=== PATIENT | female | born 1935 | race Caucasian/White ===

== ENCOUNTER 2021-04-14 10:13 | Emergency (ER) | payer MEDICARE ==
[~2021-04-14] VITALS: Ht 149 cm; Wt 65.0 kg
--- OUTSIDE RECORDS SUMMARY | 2021-04-14 10:19 | XMS REPORT | Clinical Summary ---
Author Author [facility] Address Unknown Phone Unavailable Care Team Providers Care Social Media Campaign Manager Name Role Phone Dorie Campos Erick DO PCP Frederick Bonner MD Unavailable Martina Szymanski MD Unavailable Shimon Paula MD Unavailable Allergies Comments Active Allergy Reactions Severity Noted Date Causes weepy skin Bacitracin Other (See 01/13/2018 Comments) States prob a rash Clindamycin Other (See 01/13/2018 Comments) Rash Doxycycline Rash Low 08/19/2016 GI distress Erythromycin Base Nausea Only Low 08/19/2016 Etodolac Diarrhea High 01/13/2018 Makes her agitated. Gabapentin Other (See 04/01/2019 Comments) Happened with CT dye-does not remember what happened. States betadine topical is ok with no reaction Iodine Other (See 01/13/2018 Comments) Patient reports skin reaction to the adhesive on the bandaids Latex Other (See 07/23/2016 Comments) cuased her fingernails to flake off Levofloxacin In D5w Other (See Comments) Unknown reaction Pregabalin Other (See 10/03/2020 Comments) "makes me crazy" Morphine Other (See 08/27/2016 Comments) Causes weepy skin Neomycin Other (See 01/13/2018 Comments) Nystatin Rash High 08/19/2016 Causes weepy skin Polymyxin B Other (See 01/13/2018 Comments) Sulfamethoxazole Rash Low 08/19/2016 Bextra Valdecoxib Rash High 04/17/2017 Medications End Date Status Medication Sig Dispensed Refills Start Date Active Alum Hydroxide-Mag Take 3 0 Trisilicate (GAVISCON) tablets by 80-14.2 MG CHEW mouth as needed. Active ibuprofen (ADVIL,MOTRIN) Take 200-400 0 200 MG tablet mg by mouth as needed. Active Calcium-Vitamin D-Vitamin Chew 1 tablet 0 K 650-12.5-40 MG-MCG-MCG every other CHEW day. Active acetaminophen (TYLENOL) Take 500 mg 0 500 MG tablet by mouth every 6 (six) hours as needed for Mild Pain. Active chlorhexidine (PERIDEX) Twice a Day 120 mL 1 0.12 % 1 solutionIndications: Mouth sores Active pantoprazole (PROTONIX) TAKE 1 TABLET 180 tablet 3 40 MG tabletIndications: TWICE A DAY 1 Gastroesophageal reflux disease without esophagitis Active atorvastatin (LIPITOR) 40 TAKE 1 TABLET 90 tablet 3 MG tablet DAILY 1 Active clopidogrel (PLAVIX) 75 TAKE 1 TABLET 90 tablet 3 MG tablet DAILY 1 Active diclofenac (VOLTAREN) 1 % APPLY 2-4 100 g 11 gelIndications: Primary GRAMS 1 osteoarthritis of left TOPICALLY TO shoulder, Neck pain, AFFECTED AREA chronic FOUR TIMES DAILY Active clobetasol (TEMOVATE) Apply 0 0.05 % cream topically 2 (two) times daily as needed. Active Trolamine Salicylate Apply 0 (ASPERCREME EX) topically. Active carvedilol (COREG) 3.125 Take 1 tablet 180 tablet 3 MG tabletIndications: (3.125 mg 1 Essential hypertension total) by mouth 2 (two) times daily with meals. Active fenofibrate (TRIGLIDE) Take 1 tablet 90 tablet 3 1 160 MG tabletIndications: (160 mg 1 Mixed hyperlipidemia total) by mouth daily. Active hydroCHLOROthiazide Take 1 tablet 90 tablet 3 (HYDRODIURIL) 25 MG (25 mg total) 1 tabletIndications: by mouth Essential hypertension daily. Active lisinopril Take 1 tablet 90 tablet 3 (PRINIVIL,ZESTRIL) 2.5 MG (2.5 mg 1 tabletIndications: total) by Essential hypertension mouth daily. Active traMADol (ULTRAM) 50 MG TAKE 1 TABLET 120 tablet 2 tabletIndications: BY MOUTH 4 1 Primary osteoarthritis TIMES DAILY involving multiple joints NEEDED Active acetaminophen-codeine Take 1 tablet 90 tablet 3 (TYLENOL #3) 300-30 MG by mouth 1 per tabletIndications: every 6 (six) DDD (degenerative disc hours as disease), lumbar needed for Moderate Pain. Active multivitamin w/minerals Take 1 tablet 0 (CENTRUM) TABS by mouth daily. Active vitamin C (ASCORBIC ACID) Take 500 mg 0 500 MG tablet by mouth daily. Active B Complex Vitamins Take by 0 (VITAMIN B COMPLEX PO) mouth. Status Hospital, Clinic, or Ordered Dose Route Frequency Start End Date Other Facility Date Administered Medication Active cyanocobalamin (VITAMIN 1000 mcg IM EVERY 30 DAYS B-12) injection 1,000 21 2 mcgIndications: Vitamin B12 deficiency Active Problems Problem Noted Date Syncope 02/20/2021 Last Assessment & Plan: Formatting of this note might be differ ent from the original. - has appt with Dr Bennett next week to follow-up - still doesn't quite feel right - MRI was normal - rhythm was normal on telemetry during hospital stay - referral to neurology (seizure vs sy ncope) Traumatic ecchymosis of abdominal wall, initial encou nter 02/20/2021 Last Assessment & Plan: Formatting of this note might be differ ent from the original. - discussed will see if this is getting worse will order CT abdomen - will check CBC in office today Hypokalemia 02/20/2021 Last Assessment & Plan: Formatting of this note might be differ ent from the original. BMP today We will call with results and further i nstructions as needed Mixed hyperlipidemia 01/24/2021 Last Assessment & Plan: Formatting of this note is different fr om the original. Lab Results Component Value Date CHOL 136 01/13/2020 HDL 46 01/13/2020 LDL 69 01/13/2020 TRIG 104 01/13/2020 Will repeat labs today Vitamin B12 deficiency 01/24/2021 Last Assessment & Plan: Formatting of this note might be differ ent from the original. Patient has been taking b12 daily Will continue b12 Will check level Was going to do injections in the past - but stopped due to COVID pandemic and didn't ever do injections Hospital discharge follow-up 12/21/2020 Last Assessment & Plan: Formatting of this note might be differ ent from the original. Fu after recent hospitalization Will do labs today Wart on thumb 10/03/2020 Last Assessment & Plan: Formatting of this note might be differ ent from the original. Right thumb affected and treated. Cryotherapy: Keep the area dry and cove red for 24-48 hours and clean thereafter. Watch for signs of infection (redness, pain, drainage, warmth, swelling). Take Tylenol (acetaminophen) as needed for pain. Blister formation, some redness and tenderness is normal. Additional written information provided . Follow up as needed for any change or c oncern. Neck pain, chronic 09/27/2020 Last Assessment & Plan: Formatting of this note might be differ ent from the original. Try acetaminophen (Tylenol) for neck /h eadache pain - no more than 1000 mg 3 x day. Check cervical spine films. Consider physical therapy - depending x ray results. Neck exercises as directed - DO NOT PER FORM IF CAUSES PAIN. Follow-up for persistent or worsening s ymptoms. DDD (degenerative disc disease), cervical 09/27/2020 Last Assessment & Plan: Formatting of this note might be differ ent from the original. Chronic This continues to bother her and affect her ADL's She will continue with tramadol and dic lofenac gel (topical) If not improved, discussed fentanyl pat ch She will hold off at this time but may consider low dose fentanyl patch in future Will order MRI Referral to neurosurgery - patient has severe DDD- cervical spin e. She has worsening radiculopathy symptoms Has seen pain management and had inject ions in the past Olecranon bursitis of right elbow 02/02/2020 Overview: Formatting of this note might be differ ent from the original. Added automatically from request for estrella prince [id number] Sacroiliac joint dysfunction 12/14/2019 DDD (degenerative disc disease), lumbar 09/30/2019 Last Assessment & Plan: Formatting of this note might be differ ent from the original. Chronic Will order MRI Patient will need referral to neurosurg justa for evaluation Will order MRI to do prior to her appt - has had worsening neuropathy (feet go ing numb) Has seen pain management in the past - will order MRI Left hip pain 01/11/2019 Last Assessment & Plan: Formatting of this note might be differ ent from the original. Will check radiographic films. Will send referral for physical therapy . If there is no improvement, will refer for possible hip injection, furth er evaluation. Arthropathy of left shoulder 12/14/2018 Overview: Formatting of this note might be differ ent from the original. Added automatically from request for estrella prince [id number] L ast Assessment & Plan: Formatting of this note might be differ ent from the original. Continue therapies. Left thyroid nodule 01/22/2018 Last Assessment & Plan: Formatting of this note might be differ ent from the original. She had a low attenuation focus in the left thyroid lobe. Will order U/S. Pulmonary nodule 01/22/2018 Overview: Formatting of this note might be differ ent from the original. CT chest 01/2021: IMPRESSION: 1. There are multiple pulmonary nodule seen within the lungs bilaterally. Majority of these do appear to have bee n present in 2019. However, a few may be slightly better visualized or co uld be minimally larger than on the prior of 2019. Some are not as well seen on the CT a chest exam due to some motion artifact. No definite ne w nodules are seen since 2019. Given this, and the fact that none of t hese nodules are greater than 6 mm and according to the Fleischner society guidelines no specific follow-up is recommended. However, short-term fol low-up in 6 months to 1 year should be considered. 2. No new adenopathy or other mass. The re remains some large calcified lymph nodes within the hilar region on the left. Nonenlarged lymph nodes within the mediastinum are stable. No n ew axillary adenopathy or mass. 3. No other significant acute process w ithin the chest. There are areas of atelectatic change and/or scar seen. 4. Common bile duct region does appear prominent as seen. This is similar to 2019. No focal abnormal finding is s een. This measures up to 2.7 cm as seen. Please correlate clinically. Gall bladder is surgically absent. 5. Details and other findings as above. L ast Assessment & Plan: Formatting of this note might be differ ent from the original. Chronic Reviewed CT chest 01/2021 [address] to repeat CT chest 01/2022 Annual physical exam 12/08/2017 Last Assessment & Plan: Formatting of this note is different fr om the original. Will do labs today Pap: HYST (not due) Mammo:01/2021 [place]:08/13/10 (Dr Palma - no repeat d ue) DEXA:12/2019 Osteopenia of neck of left femur 12/08/2017 Last Assessment & Plan: Formatting of this note might be differ ent from the original. Reviewed DEXA 12/2017 We will repeat DEXA in 2019 Continue calcium and vit d Screening for breast cancer 12/08/2017 Essential hypertension 12/08/2017 Last Assessment & Plan: Formatting of this note might be differ ent from the original. Blood pressure stable with current arpita tment No changes today Will obtain BMP and call patient with r esults when available Coronary artery disease involving [facility] [place] coronary art justa of [facility] heart 12/08/2017 without angina pectoris Last Assessment & Plan: Formatting of this note might be differ ent from the original. No acute symptoms. Medications are opt imized with lisinopril, hydrochlorothiazide, fenofibrate, atorv astatin and carvedilol. Vitamin D deficiency 12/08/2017 Last Assessment & Plan: Formatting of this note might be differ ent from the original. Patient has been taking vit d Will check vit d in office today Primary osteoarthritis of left shoulder 12/08/2017 Last Assessment & Plan: Formatting of this note might be differ ent from the original. Watch for side effects, adverse reactio n. There are other NSAIDs on her allergy list with side effects of rash, diarrhea. Gastroesophageal reflux disease without esophagitis 12/08/2017 Last Assessment & Plan: Formatting of this note might be differ ent from the original. Stable. Continue current medications. No change to current therapy. Chronic fatigue 12/08/2017 Last Assessment & Plan: Formatting of this note might be differ ent from the original. Stable Pt is taking vit b12 We will continue to monitor TSH, T4 Patient had normal /borderline TSH sue jimenez had low T4 Primary osteoarthritis involving multiple joints 01/2017 Last Assessment & Plan: Formatting of this note might be differ ent from the original. Chronic Will order MRI Patient will need referral to neurosurg justa for evaluation Will order MRI to do prior to her appt Prediabetes 08/28/2016 Last Assessment & Plan: Formatting of this note is different fr om the original. Lab Results Component Value Date HGBA1C 6.4 (H) 01/13/2020 HGBA1C 5.9 01/11/2019 HGBA1C 6.4 (H) 12/08/2017 Will repeat hba1c today in office today Osteoarthritis of hip 08/27/2016 Last Assessment & Plan: Formatting of this note might be differ ent from the original. Stable we will do xray - left hip today She has had prior right hip replaced We will have her follow-up with ortho i f she needs anything after surgery for her shoulder Resolved Problems Problem Noted Date Resolved Date Mouth sores 12/21/2020 01/24/2021 Acute cystitis with hematuria 12/21/2020 01/25/20 21 Last Assessment & Plan: Formatting of this note might be differ ent from the original. UTI was treated. Will recheck lab. Nilesh meekor for recurrent symptoms. Chronic respiratory failure with hypoxia 12/21/2020 01/24/2021 Last Assessment & Plan: Formatting of this note might be differ ent from the original. Improved Patient did not have to go home on oxyg en Doing well Acute respiratory failure with hypoxia 12/21/2020 01/24/2021 Last Assessment & Plan: Formatting of this note might be differ ent from the original. Resolved Patient does not need oxygen Will d/c oxygen Sinusitis, unspecified chronicity, unspecified location 01/24/2021 Last Assessment & Plan: Formatting of this note might be differ ent from the original. Continue antibiotic. Follow-up if symp toms persist. Pre-operative clearance 01/11/2019 09/30/2019 Last Assessment & Plan: Formatting of this note might be differ ent from the original. Patient is scheduled for shoulder repla cement - reverse shoulder Surgeon: Dr Bonner Date of surgery: 01/28/2019 Pt will not need CXR due to having rece nt CT scan She will come back if she develops coug h / URI symptoms and we may repeat CXR at that time EKG normal Reviewed labs Pt is considered low risk for jhony-oper ative cardiac event and may proceed with surgery Acute bacterial conjunctivitis of both eyes 03/03/2018 01/11/2019 Last Assessment & Plan: Formatting of this note might be differ ent from the original. She started with driness and itching. Now has matting and redness and that is worse. Will start tobrex and then prednisone d aily x 5 days. Call if not improved or worse. She has lots of allergies to medication s and she has sensitivities/allergies to environmenta l things also. Possibly a preservative in the eye drops or possib ly started as allergies with the dust blowing around and now is matted, so most likely infection present. Urinary frequency 01/22/2018 01/13/2020 Last Assessment & Plan: Formatting of this note might be differ ent from the original. Instructed this could be from the bruis ing, or a catheter induced UTI, or because her bladder was hyperextended a nd then when drained, needs to be retrained. Will check U/A Results: Her urine shows a trace of le uks. Her microscopic U/A is neg. Her urobilinogen is elevated. Will see what the CMP shows for liver enzymes. Needs flu shot 01/22/2018 01/11/2019 Last Assessment & Plan: Formatting of this note might be differ ent from the original. Will administer the flu shot in the off ice today. Acute left ankle pain 12/08/2017 01/11/2019 Encounters Care Team Description Date Type Specialty Dorie Campos, 04/11/2021 Chart Note Internal Medicine Dorie Campos, 04/02/2021 Chart Note Internal Medicine Tomasa Tapia LPN Vitamin B12 deficiency (Primary Dx) 03/29/2021 Clinical Internal Medicine Support Dorie Campos DO Requesting Appointment (Vit B 12 injecti on) 03/28/2021 Telephone Internal Medicine Dorie Campos DO 03/28/2021 Chart Note Internal Medicine Essential hypertension; Hypokalemia 03/20/2021 Lab Visit Lab Alejandra Lozano APRN Essential hypertension (Primary Dx); Hypokalemia 03/20/2021 Office Visit Internal Medicine Link, Onbase 03/19/2021 [facility] Scan Dorie Campos, 03/19/2021 Chart Note Internal Medicine Dorie Campos, DO 03/19/2021 Chart Note Internal Medicine Bora Vital MD Left hip pain (Primary Dx) 03/14/2021 Office Visit Orthopedic Surgery Dorie Campos DO 03/14/2021 Chart Note Internal Medicine Dorie Campos DO 03/13/2021 Chart Note Internal Medicine Link, Onbase 03/09/2021 [facility] Scan Jakub Rothman MD Seizures (HCC) 03/02/2021 Chart Note Neurology Dorie Campos, Record Request 03/01/2021 Nurse Internal Medicine Triage-Office Hours Frederick Bonner MD Arthropathy of left shoulder 02/27/2021 Imaging Radiology Frederick Bonner MD Arthropathy of left shoulder (Primary Dx ); ERRONEOUS ENCOUNTER--DISREGARD 02/27/2021 Erroneous Orthopedic Surgery Encounter Dorie Campos DO Other chronic pain; Need for home health care 02/27/2021 Treatment Internal Medicine Dorie Campos DO Urinary Incontinence 02/23/2021 Nurse Family Medicine Triage-Office Hours Link, Onbase 02/22/2021 [facility] Scan Link, Onbase 02/21/2021 Orders Only Hypokalemia 02/20/2021 Lab Visit Lab Dorie Campos DO Seizure (HCC) (Primary Dx); Syncope, unspecified syncope type; Traumatic ecchymosis of abdominal wall, initial encounter; Hypokalemia; Hospital discharge follow-up; Pulmonary nodule; Bilateral carotid artery stenosis 02/20/2021 Office Visit Internal Medicine Dorie Campos DO Medication Refill 02/19/2021 Refill Internal Medicine Link, Onbase 02/16/2021 [facility] Scan Lisa Watters, RN 02/14/2021 Transitional Care Management Care Management (TCM) Dorie Campos DO Neck pain, chronic; Coronary artery disease involving [facility] coronary artery of [place] heart without angina pectoris; Primary osteoarthritis of left shoulder; Need for home health care 02/13/2021 Treatment Internal Medicine Dorie Campos DO Pulmonary nodule (Primary Dx) 02/13/2021 Orders Only Family Medicine Rosalina Bermudez, RN 02/10/2021 Nurse Triage Dorie Campos DO Medication Refill (Tramadol ) 02/10/2021 Refill Internal Medicine Link, Onbase 02/08/2021 [facility] Scan Link, Onbase 01/25/2021 [facility] Scan Mixed hyperlipidemia; Pharmacologic therapy; Prediabetes; Chronic fatigue; Vitamin D deficiency; Pain in joint, multiple sites; Essential hypertension 01/24/2021 Lab Visit Lab Dorie Campos, DO Medicare annual wellness visit, subseque nt (Primary Dx); Essential hypertension; Needs flu shot; DDD (degenerative disc disease), cervical; Prediabetes; Vitamin D deficiency; Chronic fatigue; Pain in joint, multiple sites; Mixed hyperlipidemia; Pharmacologic therapy; Annual physical exam; DDD (degenerative disc disease), lumbar; Primary osteoarthritis involving multiple joints; Vitamin B12 deficiency; Chronic respiratory failure with hypoxia (HCC); Acute respiratory failure with hypoxia (HCC); Osteopenia of neck of left femur; Spondylolisthesis of lumbar region; Pulmonary nodule; Cervical radiculopathy 01/24/2021 Office Visit Internal Medicine Dorie Campos DO Encounter for screening mammogram for ma lignant neoplasm of breast 01/24/2021 Imaging Radiology Dorie Campos, Medication Refill 01/22/2021 Refill Internal Medicine Giuliana Knowles APRN Medication Refill 01/22/2021 Refill Internal Medicine from Last 3 Months Immunizations Name Administration Dates Next Due INFLUENZA A&B TRIVALENT 12/29/2018, 01/23/2018, VAC ADJUVANTED PF (Adults=>65 y/o-FLUAD) INFLUENZA QUADRIVALENT 01/24/2021, 01/13/2020 ADJUVANTED (FLUAD-Adults=>65 y/o) Influenza IIV3 MDV 02/25/2014 (Multi-dose vial) Influenza TIV (HX thru 01/25/2009, 02/26/2008, 04/2006, 02/12/2006 Jan 18 2010) Pneumococcal Conjugate 11/24/2014 (13-valent) Pneumococcal 01/06/2006 Polysaccharide (23-valent) Td(adult) PFree,adsorbed 01/07/2008 Tdap 01/07/2008 Family History Medical History Relation Name Comments Breast cancer Maternal Grandmother Other Other Mother - Cause of D eath:Pneumonia Other Other Father - Cause of D eath:CHF Relation Name Status Comments Brother Brother Brother Brother Father (Age 82) Maternal Grandmother Mother (Age 93) Other Other Sister Sister Sister Sister Sister Sister Social History Date Tobacco Use Types Packs/Day Years Used Never Smoker Smokeless Tobacco: Never Used Tobacco Cessation: Counseling Given: Yes Comments Alcohol Use Standard Drinks/Week Alcoholic Drinks/day: Never No 0 (1 standard drink = 0.6 o z pure alcohol) Control Partners Comments Sexually Active Male Not Currently Sex Assigned at Date Recorded Not on file Industry Job Start Date Occupation Not on file Not on file Not on file Last Filed Vital Signs Reading Time Taken Comments Vital Sign 136/60 03/20/2021 1:22 PM RNFA Blood Pressure 74 03/20/2021 1:22 PM RNFA Pulse 36.3 C (97.3 F) 03/20/2021 1:22 PM RNFA Temperature 14 03/20/2021 1:22 PM RNFA Respiratory Rate 96% 03/20/2021 1:22 PM RNFA Oxygen Saturation - - Inhaled Oxygen Concentration 64.3 kg (141 lb 12.8 oz) 03/20/2021 1:22 PM RNFA Weight 149.9 cm (4' 11") 03/20/2021 1:22 PM RNFA Height 28.64 03/20/2021 1:22 PM RNFA Body Mass Index Plan of Treatment Care Team Description Date Type Specialty Bora Vital MD [address] [id number] [email or web address] 04/25/2021 Office Visit Orthopedic Surgery 04/26/2021 Clinical Internal Medicine Support Giuliana Knowles, HOUSE CALLS NURSE [address] [place], [place] [id number] [email or web address] 07/26/2021 Office Visit Internal Medicine Rosalina Pyle MD [address] [id number] [email or web address] 08/03/2021 Initial consult Neurology Dorie Campos DO [address] [id number] [email or web address] 01/29/2022 Office Visit Internal Medicine 01/29/2022 Imaging Radiology 01/29/2022 Imaging Radiology Health Maintenance Due Date Last Done Comments COVID-19 Vaccine (1) 1947 Zoster Vaccine (1 of 2) 1985 DTaP,Tdap,and Td Vaccines 01/06/2018 01/07/2008, (2 - Td or Tdap) 01/07/2008 Annual Wellness Visit 01/24/2022 01/24/2021, 01/13/2020 DEXA Scan 01/12/2025 01/13/2020, 12/17/2017, 11/17/2013, Additional history exists Pneumo-Vaccine: 65+Yrs Completed 11/24/2014, 01/06/2006 Pneumo-Vaccine: Peds (0-5 Aged Out 11/24/2014, No l onger eligible based on patient's age to Yrs) & At-Risk Patients 01/06/2006 complete this topic (6-64 Yrs) Influenza Vaccine Completed 01/24/2021, 01/13/2020, 12/29/2018, Additional history exists HIB Vaccines Aged Out No longer eligible based on patient's age to complete this topic IPV Vaccines Aged Out No longer eligible based on patient's age to complete this topic Meningococcal Vaccine Aged Out No longer eligib le based on patient's age to complete this topic Rotavirus Vaccines Aged Out No longer eligible based on patient's age to complete this topic Goals Goal Patient Associated Recent Progress Patient-Stat Aut hor Goal Type Problems ed? Joint Replacement Surgery General Yes Mini Acuna cas, RN Note: Patient-stated Short Term Goal after Total Joint Replacement surgery: Decrease Pain Patient-stated Matching Machine Operator Goal for Total Joint Replacement surgery: better mobility Joint Replacement Surgery General Yes Vaughn Browning, RN Note: Patient-stated Short Term Goal after Total Joint Replacement surgery: Decrease Pain, Increase Mobility and within 2-3 weeks be able to dress self without pain. 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 Implants Device Identifier Shelf Expiration Date Model / Serial / L ot Implanted Type Area Manufactur [id number] 06/02/2026 [id number] / / [id number] Implant R3 Dg 3 Hole Shell Od 52 - Right: Hip SM ITH AND [id number] NEPHEW EEN Implanted: Qty: 1 on 08/27/2016 by AND Bora Edmonds MD at [facility] [id number] 12/02/2024 [id number] / / [id number] Implant Xlpe Liner 0 Dg Id 32 Od 52 Right: Hip S MITH AND - [id number] NEPHEW EEN Implanted: Qty: 1 on 08/27/2016 by AND Bora Edmonds MD at [facility] [id number] 03/26/2026 [id number] / / [id number] Reflection Spherical Head Screw 20m Right: Hip S MITH AND - [id number] NEPHEW Implanted: Qty: 1 on 08/27/2016 by Bora Curtis MD at [facility] [id number] 03/17/2026 [id number] / / [id number] Reflection Spherical Head Screw 25m Right: Hip S MITH AND - [id number] NEPHEW Implanted: Qty: 1 on 08/27/2016 by Bora Curtis MD at [facility] 07/13/2026 [id number] / / [id number] [facility] Tabitha Fem Std Ofs 04/03 Right: Hip S MITH AND - [id number] NEPHEW Implanted: Qty: 1 on 08/27/2016 by Bora Curtis MD at [facility] [id number] 04/30/2026 [id number] / / [id number] Head Femoral 32mm - [id number] Right: Hip VITAL AN D Implanted: Qty: 1 on 08/27/2016 by Bora Kelley MD at [facility] [id number] 01/03/2029 320-01-42 / [id number] / Equinoxe Reverse 42mm Glenosphere - Left: Shoulder U nknown [id number] Implanted: Qty: 1 on 03/16/2019 by Frederick Bonner MD at [facility] [id number] 01/18/2024 320-20-34 / [id number] / Eq Rev Compress Screw Lck Cap Kit, Left: Shoulder Un known 4.5 X 34mm - [id number] Implanted: Qty: 1 on 03/16/2019 by Frederick Bonner MD at [facility] [id number] 02/22/2024 320- / [id number] / Eq Rev Compress Screw Lck Cap Kit, Left: Shoulder Un known 4.5 X 30mm - [id number] Implanted: Qty: 1 on 03/16/2019 by Frederick Bonner MD at [facility] [id number] 02/03/2024 320-42- / [id number] / Equinoxe Reverse 42mm Humeral Liner Left: Shoulder U nknown +0 - [id number] Implanted: Qty: 1 on 03/16/2019 by Frederick Bonner MD at [facility] [id number] 02/16/2028 300-30- / [id number] / Equinoxe Preserve Humeral Stem Left: Shoulder EXACTE CH Press-Fit, Plasma Coated 7mm Implanted: Qty: 1 on 03/16/2019 by Frederick Bonner MD at [facility] [id number] 02/17/2029 320-10 / [id number] / Equinoxe Reverse Tray Adapter Plate Left: Shoulder U nknown Tray +0 - [id number] Implanted: Qty: 1 on 03/16/2019 by Frederick Bonner MD at [facility] [id number] 02/01/2024 320-20 / [id number] / Eq Reverse Torque Defining Screw Left: Shoulder Unkn own Kit - [id number] Implanted: Qty: 1 on 03/16/2019 by Frederick Bonner MD at [facility] [id number] 02/02/2024 320 / [id number] / Eq Rev Locking Screw - [id number] Left: Shoulder Unkno wn Implanted: Qty: 1 on 03/16/2019 by Frederick Bonner MD at [facility] [id number] 01/12/2029 320- / [id number] / Glenoid Plate, Posterior Augment, 8 Left: Shoulder E XACTECH Degrees, Left - [id number] Implanted: Qty: 1 on 03/16/2019 by Frederick Bonner MD at [facility] Procedures Comments Procedure Name Priority Date/Time Associated Diag nosis EXTERNAL RECORD ORDER Routine 04/10/2021 EXTERNAL RECORD ORDER Routine 03/29/2021 EXTERNAL RECORD ORDER Routine 03/27/2021 EXTRA PURPLE TOP Routine 03/20/2021 Essential hyp ertension 2:06 PM RNFA Hypokalemia EXTRA TUBES Routine 03/20/2021 Essential hyper tension 2:06 PM RNFA Hypokalemia BASIC METABOLIC PANEL Routine 03/20/2021 Essentia l hypertension 2:04 PM RNFA Hypokalemia EXTERNAL RECORD ORDER Routine 03/13/2021 EXTERNAL RECORD ORDER Routine 03/13/2021 EEG Routine 03/02/2021 Syncope, unspec ified 8:13 AM RNFA syncope type Seizure (HCC) XR SHOULDER LEFT AP Routine 02/27/2021 Arthropath y of left INTERNAL AP EXTERNAL 12:45 PM RNFA shoulder AXILLARY EXTRA PURPLE TOP Routine 02/20/2021 Hypokalemia 2:17 PM CDT EXTRA TUBES Routine 02/20/2021 Hypokalemia 2:17 PM CDT BASIC METABOLIC PANEL Routine 02/20/2021 Hypokale apollo 2:16 PM CDT HM EXTERNAL XRAY 02/12/2021 12:00 AM CDT EXTERNAL RECORD ORDER Routine 02/11/2021 EXTERNAL RECORD ORDER Routine 02/11/[address] SCAN 02/11/2021 12:00 AM CDT HM EXTERNAL MRI 02/11/2021 12:[address] CHEST WO CONTRAST Routine 02/06/2021 Pulmonary nodule MRI LUMBAR SPINE WO Routine 02/05/2021 DDD (degen erative disc CONTRAST disease), lumbar Spondylolisthesis of lumbar region MRI CERVICAL SPINE WO Routine 02/05/2021 DDD (deg enerative disc CONTRAST disease), cervical Cervical radiculopathy CHG URINALYSIS, AUTO, W/O Routine 01/24/2021 Mixe d hyperlipidemia SCOPE 12:17 PM CDT Pharmacologic thera py URINE MICROSCOPIC Routine 01/24/2021 Mixed hyperl ipidemia 12:12 PM CDT Pharmacologic therapy CBC WITH AUTO Routine 01/24/2021 Mixed hyperlipi demia DIFFERENTIAL 11:39 AM CDT Pharmacologic thera py SEDIMENTATION RATE, Routine 01/24/2021 Pain in meghan int, multiple MANUAL 11:39 AM CDT sites Mixed hyperlipidemia Pharmacologic therapy B-TYPE NATRIURETIC Routine 01/24/2021 Essential h ypertension PEPTIDE 11:39 AM CDT Mixed hyperlipidemi a Pharmacologic therapy URIC ACID Routine 01/24/2021 Pain in joint, multiple 11:39 AM CDT sites Mixed hyperlipidemia Pharmacologic therapy VITAMIN D2/D3 TOTAL Routine 01/24/2021 Vitamin D deficiency 11:39 AM CDT Mixed hyperlipidemia Pharmacologic therapy VITAMIN B12 Routine 01/24/2021 Chronic fatigue 11:39 AM CDT Mixed hyperlipidemia Pharmacologic therapy T4, FREE Routine 01/24/2021 Chronic fatigue 11:39 AM CDT Mixed hyperlipidemia Pharmacologic therapy TSH Routine 01/24/2021 Chronic fatigue 11:39 AM CDT Mixed hyperlipidemia Pharmacologic therapy LIPID PANEL Routine 01/24/2021 Mixed hyperlipi demia 11:39 AM CDT Pharmacologic therapy HEMOGLOBIN A1C Routine 01/24/2021 Prediabetes 11:39 AM CDT Mixed hyperlipidemia Pharmacologic therapy COMPREHENSIVE METABOLIC Routine 01/24/2021 Mixed hyperlipidemia PANEL 11:39 AM CDT Pharmacologic thera py CBC AND DIFFERENTIAL Routine 01/24/2021 Mixed hyp erlipidemia 11:39 AM CDT Pharmacologic therapy EKG 12-LEAD AMBULATORY Routine 01/24/2021 Essenti al hypertension 10:36 AM CDT 3D SCREENING MAMMOGRAM Routine 01/24/2021 Encount er for screening 10:00 AM CDT mammogram for malignant neoplasm of breast from Last 3 Months Results * External Record Order (04/10/2021) Only the most recent of 7 results within the time period is included. Narrative * EXTRA PURPLE TOP (03/20/2021 2:06 PM RNFA) Only the most recent of 2 results within the time period is included. EXTRA TUBE Extra tube in lab [facility] Specimen Blood Performing Organization Address City/[facility] Code P jeronimo Number [facility] [address] [place] [phone] * Basic metabolic panel (03/20/2021 2:04 PM RNFA) Only the most recent of 2 results within the time period is included. Sodium 141 136 - 145 mmol/L [facility] Potassium 3.5 3.5 - 5.1 mmol/L [facility] Chloride 100 98 - 107 mmol/L [facility] CO2 37 (H) 21 - 32 mmol/L [facility] Anion Gap 4 [facility] Glucose 137 (H) 74 - 106 mg/dL [facility] Calcium 9.4 8.8 - 10.1 mg/dL [facility] BUN, Bld 20 (H) 7 - 18 mg/dL [facility] Creatinine 0.58 0.55 - 1.02 mg/dL [facility] eGFR >59 >59 mL/min [facility] Specimen Blood Performing Organization Address City/[facility] Code P jeronimo Number [facility] [place] [address] [place] [address] [phone] * EEG (03/02/2021 8:13 AM RNFA) Narrative Jakub Rothman MD - 03/02/2021 8:13 AM Jakub Chiang MD 03/02/2021 4:48 PM [facility] [address] [facility] [place] [facility] [address] 03/02/2021 Electroencephalogram (EEG) Report Patient: Tamanna Thomas : 1935 Primary Care Provider: Dorie Campos DO Referring Provider: No ref. provider found Test #: Jira Developer: ANTONIO Instrument: Technical data obtained at [facility] Patient State: A&O Last Meal: 10:30 am Handedness: right handed Medications: has a current medication list which includes the following prescription(s): acetaminophen, acetaminophen-codeine, alum hydroxide-mag trisilicate, atorvastatin, b complex vitamins, calcium-vitamin d-vitamin k, carvedilol, chlorhexidine, clobetasol, clopidogrel, diclofenac, fenofibrate, hydrochlorothiazide, ibuprofen, lisinopril, multivitamin w/minerals, pantoprazole, tramadol, trolamine salicylate, and vitamin c. Diagnosis: Syncope and seizure History: [facility]21 due to change in mental statu s. According to her son, the patient woke up at 8 am that day, when she came to the family room, her words were not correct and somewhat slurred. She was having difficulty with word finding. She was not noted to have any extremity weakness or loss of movement. Her symptoms progressed to the point where she needed to sit in the chair then curled up In a ball and started to have shaking type movement. Son thought it was seizure activity. After the event, the patient was confused and somewhat somnolent. She was slightly confused in the ER after [facility] brought her in. She denies any cough, SOB, Fever, chills, nausea, vomiting, or diarrhea Activations: Photic , HV, Awake. During Photic patient had rhythmic head movement to the flashing light on frequency 17 and 21. CC: Dorie Campos DO, No ref. provider found DESCRIPTION: This is a 25 minute EEG using the international 10-20 system of electrode placement. C up electrodes were applied by paste with impedences of < 5 kOhms. Physiologic monitoring included 2 channels of electro-oculogram and a rhythm strip (to help identify artifact on the EEG). Video recording was available for this EEG. During the quiet, wake state the dominant feature was 7 hz occipital dominant theta, with low amplitude faster activity anteriorly. With photic stimulation there is prominent occipital theta at the appropriate frequencies. The rhythm strip shows rare lower amplitude supraventricular beats. But the EKG channel eventually becomes artifact contaminated. She does not appear to fall asleep. There are occasional phase reversing transients in T3, and T4, and in C3. These have symmetric rising and falling phases and are without slow waves. IMPRESSION: This is an abnormal EEG due to mild slowing of the background activity. There are no definite focal, lateral, or epileptiform abnormalities. There were a number of phase reversing transients over either central temporal region, but these had a symmetric rise and fall and did not have after coming slow waves. They are likely not interictal discharges. Clinical correlation is recommended Jakub Rothman MD Electronically Signed 03/02/2021 4:44 PM * XR Shoulder Left (2+ views) (02/27/2021 12:45 PM RNFA) Modality Anatomical Region Laterality Computed Radiography Shoulder, Chest, Arm Specimen Impressions PACS - 02/27/2021 2:04 PM RNFA Impression: [id number] arthritis the right shoulder joint Narrative PACS - 02/27/2021 2:04 PM RNFA Clinical Indication: ^shoulder pain Findings: 2 views of the right shoulder shows right shoulder arthritis Procedure Note Frederick Bonner MD - 02/27/2021 Clinical Indication: ^shoulder pain Findings: 2 views of the right shoulder shows right shoulder arthritis IMPRESSION: Impression: [id number]-[id number] arthritis the right shoulder joint Performing Organization Address City/State/ZIP Code P jeronimo Number PACS * CT Chest (without contrast) (02/06/2021) Modality Anatomical Region Laterality Computed Tomography Chest Narrative * MRI Lumbar Spine (without contrast) (02/05/2021) Modality Anatomical Region Laterality Magnetic Resonance T-spine, L-spine, Pelvis Narrative * MRI Cervical Spine (without contrast) (02/05/2021) Modality Anatomical Region Laterality Magnetic Resonance C-spine, T-spine, Neck Narrative * Perform Urine Screen, Automated (01/24/2021 12:17 PM CDT) Color, UA POC Yellow [facility] Appearance, UA Clear [facility] Specific 1.020 1.003 - 1.030 [facility] [place] pH, UA POC 7.0 5.0 - 8.0 [facility] Protein, UA POC Negative Negative [facility] Glucose, UA POC Negative Negative [facility] Ketones, UA POC Negative Negative [facility] Bilirubin, UA Negative Negative [facility] Hemoglobin, UA 1+ (A) Negative [facility] Leukocyte Negative Negative [facility] - esterase, [facility] [place] [facility] Nitrite, UA POC Negative Negative [facility] Urobilinogen, 0.2 <=0.2 EU [facility] Specimen Performing Organization Address [facility] P jeronimo Number [facility] [place] [address] [place] [address], [place] [address] [phone] * Urine Microscopic (01/24/2021 12:12 PM CDT) Squam Epithel, Rare [facility] WBC, UA 0-3 0 - 3 [facility] RBC, UA 0-3 0 - 3 [facility] Bacteria, UA Trace [facility] Amorphous, UA Trace [facility] Specimen Urine Performing Organization Address [facility] P jeronimo Number [facility] [address] [place] [address], [place] [address] * CBC auto differential (01/24/2021 11:39 AM CDT) WBC 6.4 3.5 - 10.5 10E9/L [facility] RBC 4.50 3.90 - 5.03 10E12/L [facility] Hemoglobin 13.1 12.0 - 15.5 g/dL [facility] Hematocrit 41.2 34.9 - 44.5 % [facility] MCV 91.6 81.6 - 98.3 fL [facility] MCH 29.1 26.0 - 34.0 pg [facility] MCHC 31.8 31.0 - 37.0 g/dL [facility] RDW 15.3 11.9 - 15.5 % [facility] Platelets 249 150 - 450 10E9/L [facility] Neutrophils % 62.9 40.0 - 75.0 % [facility] Lymphocytes % 19.3 (L) 22.0 - 49.0 % [facility] Monocytes % 8.8 2.0 - 10.0 % [facility] Eosinophils % 7.7 (H) <=5.0 % [facility] Basophils % 1.3 0.0 - 2.5 % [facility] Neutrophils 4.02 1.70 - 7.00 10E9/L [facility] [place] [facility] Lymphocytes 1.23 0.90 - 2.90 10E9/L [facility] Monocytes 0.56 0.30 - 0.90 10E9/L [facility] Eosinophils 0.49 0.05 - 0.50 10E9/L [facility] Basophils 0.08 0.00 - 0.30 10E9/L [facility] Specimen Blood Performing Organization Address City/State/ZIP Code P jeronimo Number [facility] [address] [facility] [place] [address] [phone] * Vitamin D2/D3 Total (01/24/2021 11:39 AM CDT) [facility] Vitamin D2/D3 27 (L) 30 - 100 ng/ml [facility] Total LABORATORY Specimen Blood Narrative [facility] - 01/24/2021 6:20 PM CDT < 20 ng/mL Deficiency 20- 30 ng/mL Insufficiency 30-100 ng/mL Sufficiency > 100 ng/mL Consider toxicity The reference range for total Vitamin D, 25-Hydroxy is based on correlation with parameters that include PTH concentration and calcium absorption. The range is not based on the distribution of levels in an apparently healthy population. Please note new methodology and reference range. Performing Organization Address [facility] P jeronimo Number [facility] [address] [place] [phone] * Sedimentation rate, manual (01/24/2021 11:39 AM CDT) Sed Rate 2 <=20 mm/Hr [facility] Specimen Blood Performing Organization Address [facility] P jeronimo Number [facility] [address] [place] [phone] * Uric acid (01/24/2021 11:39 AM CDT) Uric Acid 4.2 2.6 - 6.0 mg/dL [facility] Specimen Blood Performing Organization Address [facility] P jeronimo Number [facility] [place] [address] * TSH (01/24/2021 11:39 AM CDT) TSH 2.854 0.358 - 3.740 uIU/mL [facility] Specimen Blood Performing Organization Address [facility] P jeronimo Number [facility] [place] [address] [place] [address] [phone] * T4, free (01/24/2021 11:39 AM CDT) Free T4 0.73 (L) 0.76 - 1.46 ng/dL [facility] Specimen Blood Performing Organization Address [facility] P jeronimo Number [facility] [place] [address] [place] [address] * B-Type Natriuretic Peptide (01/24/2021 11:39 AM CDT) BNP 13 <=100 pg/mL [facility] Specimen Blood Performing Organization Address City/[facility] P jeronimo Number [facility] [address] [place] [address] * Hemoglobin A1c (01/24/2021 11:39 AM CDT) Hemoglobin A1C 5.9 4.5 - 6.2 % [facility] Specimen Blood Narrative [facility] - 01/24/2021 12:45 PM CDT [place] [employer] recommendations are as follows: Normal - A1c less than 5.7% Prediabetes - A1c 5.7 - 6.4% Diabetes - A1c 6.5% or greater Performing Organization Address City/[facility] P jeronimo Number [facility] [address] [place] [phone] * Vitamin B12 (01/24/2021 11:39 AM CDT) Vitamin B-12 1,535 (H) 211 - 911 pg/mL [facility] Specimen Blood Narrative [facility] - 01/24/2021 6:20 PM CDT Vitamin B-12 Reference Range: Normal = 211-911 pg/mL Deficient = 32-246 pg/mL Performing Organization Address City/[facility] P jeronimo Number [facility] [address] [place] [phone] * Lipid panel (01/24/2021 11:39 AM CDT) Cholesterol 137 <200 mg/dL [facility] Triglycerides 81 <150 mg/dL [facility] HDL 59 >=40 mg/dL [facility] LDL Cholesterol 62 mg/dL [facility] Non-HDL 78 0 - 129 mg/dL [facility] Ch[facility] Specimen Blood Narrative [facility] [place] - 01/24/2021 12:53 PM CDT [employer] GUIDLINES FOR LDL: Optimal: <100 mg/dL Near Optimal: 100-129 mg/dL Borderline High: 130-159 mg/dL High: 160-189 mg/dL Very High: >=190 mg/dL Performing Organization Address City/[facility]/ZIP Code P jeronimo Number [facility] [address] [place] [facility] [place] [address] [phone] * Comprehensive metabolic panel (01/24/2021 11:39 AM CDT) [facility] Sodium 144 136 - 145 mmol/L [facility] Potassium 3.2 (L) 3.5 - 5.1 mmol/L [facility] Chloride 106 98 - 107 mmol/L [facility] CO2 32 21 - 32 mmol/L [facility] Anion Gap 6 [facility] Glucose 99 74 - 106 mg/dL [facility] Total Protein 7.5 6.4 - 8.2 g/dL [facility] Albumin 4.1 3.4 - 5.0 g/dL [facility] Calcium 9.7 8.8 - 10.1 mg/dL [facility] BUN, Bld 25 (H) 7 - 18 mg/dL [facility] Creatinine 0.67 0.55 - 1.02 mg/dL [facility] eGFR >59 >59 mL/min [facility] Total Bilirubin 0.5 0.2 - 1.0 mg/dL [facility] Alkaline 74 46 - 116 U/L [facility] Phosph[facility] ALT 25 14 - 59 U/L [facility] AST 13 (L) 15 - 37 U/L [facility] Specimen Blood Narrative [facility] - 01/24/2021 1:02 PM CDT Rechecked BUN. Performing Organization Address [facility]/ZIP Code P jeronimo Number [facility] [address] [place] [address] * EKG 12 lead Ambulatory (01/24/2021 10:36 AM CDT) Heart Rate 89 bpm [facility] Interval 674 ms [facility] Atrial Rate 89 ms [facility] SV P-R Interval 152 ms [facility] P Duration 115 ms [facility] P Horizontal -17 deg [facility] [place] P Front [place] 75 deg [facility] Q Onset 502 ms [facility] QRSD Interval 83 ms [facility] QT Interval 370 ms [facility] QTcB 451 ms [facility] QTcF 422 ms [facility] QRS Horizontal -27 deg [facility] [place] QRS AXIS 10 deg [facility] I40 Horizontal 0 deg [facility] [place] I40 Front [place] 51 deg PHILIP[facility] T-40 Horizontal -67 deg [facility] [place] T-40 Front [place] -15 deg [facility] T Horizontal 8 deg [facility] [place] T Wave [place] 61 deg [facility] S-T HORIZONTAL 102 deg [facility] AXIS S-T FRONT AXIS 140 deg [facility] ECG Impression - ABNORMAL ECG - [facility] ECG Impression SR [facility] ECG Impression Sinus rhythm [facility] ECG Impression normal P axis, V-rate 60-99 PHIL[facility] G ECG Impression PLAE [facility] ECG Impression Probable left atrial [facility] enlargement ECG Impression P >50mS, <-0.10mV V1 [facility] ECG Impression ASMIQ [facility] ECG Impression Anteroseptal infarct, age [facility] indeterminate ECG Impression Q >35mS, T neg, V1-V2 [facility] Specimen Performing Organization Address City/State/ZIP Code P jeronimo Number [facility] * 3D Screening Mammogram (01/24/2021 10:00 AM CDT) Modality Anatomical Region Laterality Mammography Breast Bilateral Specimen Impressions [facility] - 01/24/2021 11:10 AM CDT Negative. No evidence of malignancy. Recommendation: Bilateral Follow up mammogram in 1 year. BI-RADS category 1 Negative Patient entered into a reminder system with target due date for next mammogram. Electronically signed by: KAREN MAYEN DO Narrative [facility] - 01/24/2021 11:10 AM CDT PROCEDURE: 3D Screening Mammogram HISTORY: The patient is a 85 year old Female and is seen for screening. History of breast cancer in Maternal Grandmother. COMPARISON: Compared to: 01/13/2020 3D Screening Mammogram, 01/11/2019 [facility] Digital Screening Mammogram 2D, and 12/17/2017 [facility] Digital Screening Mammogram 2D TECHNIQUE: 3-D images of both breasts were acquired in CC and MLO projections. Synthetic 2-D images were reconstructed from the 3-D dataset and reviewed with computer-aided detection. DENSITY: The breast parenchyma is composed of scattered fibroglandular densities. FINDINGS: No developing mass, suspicious calcifications or architectural distortion. 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 Date Inactivated Comments Code Status Date Activated 02/07/2020 3:00 PM Full Code 02/07/2020 8:49 AM 02/07/2020 8:27 AM Full Code 03/17/2019 1:01 PM 03/17/2019 1:01 PM Full Code 03/17/2019 12:25 PM 03/17/2019 12:25 PM Full Code 03/16/2019 11:19 AM Care Teams Start Date End Date Social Media Campaign Manager Relationship Specialty 01/21/17 Dorie Campos DO PCP - General Internal [address] [place] [address] 11/29/18 Frederick Bonner MD Orthopedics [address] [place] [address] [phone] 10/26/19 Martina Szymanski MD Neurology [address] [place], [place] 299386 [email or web address] 03/01/21 Shimon Paula MD Neurology [address] [place], [place] [phone]
--- OUTSIDE RECORDS SUMMARY | 2021-04-14 10:19 | XMS REPORT | Encounter Summary ---
Author Author [facility] Address Unknown Phone Unavailable Care Team Providers Care Mission Worker Name Role Phone Dorie Campos DO PCP Frederick Bonner MD Unavailable Martina Szymanski MD Unavailable Reason for Visit * Reason Onset Date Comments Urinary Incontinence 02/23/2021 Encounter Details Care Team Description Date Type Department Dorie Campos DO [address] [place] [address] [email or web address] Urinary Incontinence 02/23/2021 Nurse Latrell Kimble Famil y Triage-Office Medicine - [place] [facility] [address] [place] [address] Social History Date Tobacco Use Types Packs/Day Years Used Never Smoker Smokeless Tobacco: Never Used Comments Alcohol Use Standard Drinks/Week Alcoholic Drinks/day: Never No 0 (1 standard drink = 0.6 o z pure alcohol) Control Partners Comments Sexually Active Male Not Currently Sex Assigned at Date Recorded Not on file Industry Job Start Date Occupation Not on file Not on file Not on file documented as of this encounter Miscellaneous Notes * Telephone Encounter - Tomasa Lal RN - 02/23/2021 3:33 PM CDT Nurse placed call to patient to inform her of provider's recommendations. She i s agreeable to incontinence briefs and accepting of not adding medications. She does not believe that this is a UTI. All questions answered and patient verbali zes understanding. She will call back if symptoms get worse. * Telephone Encounter - Dorie Campos DO - 02/23/2021 3:09 PM CDT There is not a good option at all for this problem One of the medications can cause really dry mouth / dizziness when standing The other one is really expensive I would recommend using pads / briefs and changing regularly and letting me know if any problems - may need UA done to check for urinary tract infection - but s he has so many allergies to medications that I also worry about that * Telephone Encounter - Tomasa Lal RN - 02/23/2021 2:09 PM CDT Patient calls complaining of urinary incontinence for about a month. She states that it wakes her up at night. She would rather not make another appointment to see provider as she was just in the office this week on 02/20/21 and states she forgot to mention it to the provider. She is wondering if there is any medicati on that she could take to help with this. Routing to provider for recommendation. Reason for Disposition [1] Can't control passage of urine (i.e., urinary incontinence, wetting self ) AND [2] present > 2 weeks Answer Assessment - Initial Assessment Questions 1. SYMPTOM: "What's the main symptom you're concerned about?" (e.g., frequency, incontinence) Incontinence and not sleeping at night because it wakes me up 2. ONSET: "When did the incontinence start?" About a month, since when I was in the hospital recently 3. PAIN: "Is there any pain?" If so, ask: "How bad is it?" (Scale: 1-10; mild, m oderate, severe) No 4. CAUSE: "What do you think is causing the symptoms?" No, just age 5. OTHER SYMPTOMS: "Do you have any other symptoms?" (e.g., fever, flank pain, b lood in urine, pain with urination) No 6. : "Is there any chance you are ?" "When was your last menstr ual period?" n/a Protocols used: URINARY [id number] documented in this encounter Plan of Treatment Care Team Description Date Type Specialty Bora Vital MD [address] [address] [email or web address] 04/25/2021 Office Visit Orthopedic Surgery 04/26/2021 Clinical Internal Medicine Support Giuliana Knowles, PAROLE HEARING OFFICER [address] [place], [place] [address] [email or web address] 07/26/2021 Office Visit Internal Medicine Rosalina Pyle MD [address] [phone] [email or web address] 08/03/2021 Initial consult Neurology Dorie Campos, DO [address] [place], [place] [address] [email or web address] 01/29/2022 Office Visit Internal Medicine 01/29/2022 Imaging Radiology 01/29/2022 Imaging Radiology documented as of this encounter Goals Goal Patient Associated Recent Progress Patient-Stat Aut hor Goal Type Problems ed? Joint Replacement Surgery General Yes Mini Acuna cas RN Note: Patient-stated Short Term Goal after Total Joint Replacement surgery: Decrease Pain Patient-stated Edge Beader Goal for Total Joint Replacement surgery: better mobility Joint Replacement Surgery General Yes Vaughn Browning, RN Note: Patient-stated Short Term Goal after Total Joint Replacement surgery: Decrease Pain, Increase Mobility and within 2-3 weeks be able to dress self without pain. 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 documented as of this encounter Visit Diagnoses Not on filedocumented in this encounter Care Teams Start Date End Date Mission Worker Relationship Specialty 01/21/17 Dorie Campos DO PCP - General Internal [address] [address] [email or web address] 11/29/18 Frederick Bonner MD Orthopedics [address] [address] [email or web address] 10/26/19 Martina Szymanski MD Neurology [address] [place] [address] [email or web address] documented as of this encounter
--- OUTSIDE RECORDS SUMMARY | 2021-04-14 10:19 | XMS REPORT | Encounter Summary ---
Author Author [facility] Address Unknown Phone Unavailable Care Team Providers Care Senior Javascript Engineer Name Role Phone Dorie Campos DO PCP Frederick Bonner MD Unavailable Martina Szymanski MD Unavailable Shimon Paula MD Unavailable Encounter Details Care Team Description Date Type Department Dorie Campos DO [address] [address] [email or web address] 03/19/2021 Chart Note Latrell Castro`Anjum Inter formerly [facility] Medicine - [place] [address] [place] [address] Social History Date Tobacco Use Types Packs/Day [...] as of this encounter Miscellaneous Notes * Progress Notes - Vonnie Barnes MA - 03/19/2021 10:15 AM TECHNOLOGY PROFESSIONAL Fax received from [facility] . Sent to provider for review. NOLOGY PROFESSIONAL documented in this encounter Plan of Treatment Care Team Description Date Type Specialty Bora Vital MD [address] [address] [email or web address] 04/25/2021 Office Visit Orthopedic Surgery 04/26/2021 Clinical Internal Medicine Support Giuliana Knowles, RADIO SCRIPT WRITER [address] [place] [address] [email or web address] 07/26/2021 Office Visit Internal Medicine Rosalina Pyle MD [address] [place] [address] [email or web address] 08/03/2021 Initial consult Neurology Dorie Campos DO [address] [place], [place] [address] [email or web address] 01/29/2022 Office Visit Internal Medicine 01/29/2022 Imaging Radiology 01/29/2022 Imaging Radiology documented as of this encounter Goals Goal Patient Associated Recent Progress Patient-Stat Aut hor Goal Type Problems ed? Joint Replacement Surgery General Yes Mini Acuna cas, RN Note: Patient-stated Short Term Goal after Total Joint Replacement surgery: Decrease Pain Patient-stated Snf Goal for Total Joint Replacement surgery: better mobility Joint Replacement Surgery General Yes Vaughn Browning, RN Note: Patient-stated Short Term Goal after Total Joint Replacement surgery: Decrease Pain, Increase Mobility and within 2-3 weeks be able to dress self without pain. 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 documented as of this encounter Procedures Comments Procedure Name Priority Date/Time Associated Diag nosis EXTERNAL RECORD ORDER Routine 02/11/2021 documented in this encounter Visit Diagnoses Not on filedocumented in this encounter Care Teams Start Date End Date Senior Javascript Engineer Relationship Specialty 01/21/17 Dorie Campos DO PCP - General Internal [address] Medicine [place], [place] [address] [email or web address] 11/29/18 Frederick Bonner MD Orthopedics [address] [address] [email or web address].[email or web address] 10/26/19 Martina Szymanski MD Neurology [address] [place], [place] [address] [email or web address].[email or web address] 03/01/21 Shimon Paula MD Neurology [address] [place] [address] [phone] documented as of this encounter
--- OUTSIDE RECORDS SUMMARY | 2021-04-14 10:19 | XMS REPORT | Encounter Summary ---
Author Author [facility] Address Unknown Phone Unavailable Care Team Providers Care Floral Designer Name Role Phone Dorie Campos Erick DO PCP Frederick Bonner MD Unavailable Martina Szymanski MD Unavailable Shimon Paula MD Unavailable Encounter Details Care Team Description Date Type Department Essential hypertension; Hypokalemia 03/20/2021 Lab Visit [facility] [address] [place] [address] [phone] Social History Date Tobacco Use Types Packs/Day [...] on file documented as of this encounter Plan of Treatment Care Team Description Date Type Specialty Bora Vital MD [address] [address] [email or web address] 04/25/2021 Office Visit Orthopedic Surgery 04/26/2021 Clinical Internal Medicine Support Giuliana Knowles APRN [address] [place], [place] [address] [email or web address] 07/26/2021 Office Visit Internal Medicine Rosalina Pyle MD [address] [address] [email or web address] [email or web address] Therapy Solutions 08/03/2021 Initial consult Neurology Dorie Campos, DO [address] [place] [address] ZAHIDA@[email or web address] [email or web address] Therapy Solutions 01/29/2022 Office Visit Internal Medicine 01/29/2022 Imaging Radiology 01/29/2022 Imaging Radiology documented as of this encounter Goals Goal Patient Associated Recent Progress Patient-Stat Aut hor Goal Type Problems ed? Joint Replacement Surgery General Yes Mini Acuna cas, RN Note: Patient-stated Short Term Goal after Total Joint Replacement surgery: Decrease Pain Patient-stated Field Sales Trainer Goal for Total Joint Replacement surgery: better mobility Joint Replacement Surgery General Yes Vaughn Browning, RN Note: Patient-stated Short Term Goal after Total Joint Replacement surgery: Decrease Pain, Increase Mobility and within 2-3 weeks be able to dress self without pain. Patient-stated Assisted Goal for Total Joint Replacement surgery: within 3-6 months, be able to do copyright expert and ADLs. documented as of this encounter Procedures Comments Procedure Name Priority Date/Time Associated Diag nosis EXTRA TUBES Routine 03/20/2021 Essential hyper tension 2:06 PM LABOR RELATIONS REPRESENTATIVE Hypokalemia EXTRA PURPLE TOP Routine 03/20/2021 Essential hyp ertension 2:06 PM LABOR RELATIONS REPRESENTATIVE Hypokalemia BASIC METABOLIC PANEL Routine 03/20/2021 Essentia l hypertension 2:04 PM LABOR RELATIONS REPRESENTATIVE Hypokalemia documented in this encounter Results * EXTRA PURPLE TOP (03/20/2021 2:06 PM LABOR RELATIONS REPRESENTATIVE) EXTRA TUBE Extra tube in lab [facility] Specimen Blood Performing Organization Address City/State/ZIP Code P jeronimo Number [facility] [address] [place] [address] * Basic metabolic panel (03/20/2021 2:04 PM LABOR RELATIONS REPRESENTATIVE) Sodium 141 136 - 145 mmol/L [facility] Potassium 3.5 3.5 - 5.1 mmol/L [facility] [place] Chloride 100 98 - 107 mmol/L [facility] CO2 37 (H) 21 - 32 mmol/L [facility] Anion Gap 4 [facility] Glucose 137 (H) 74 - 106 mg/dL [facility] [place] [facility] Calcium 9.4 8.8 - 10.1 mg/dL [facility] [place] BUN, Bld 20 (H) 7 - 18 mg/dL [facility] [place] Creatinine 0.58 0.55 - 1.02 mg/dL [facility] [place] [facility] eGFR >59 >59 mL/min [facility] Specimen Blood Performing Organization Address City/State/ZIP Code P jeronimo Number [facility] [place] [address] [place] [address] documented in this encounter Visit Diagnoses Diagnosis Essential hypertension Unspecified essential hypertension Hypokalemia Hypopotassemia documented in this encounter Care Teams Start Date End Date Floral Designer Relationship Specialty 01/21/17 Dorie Campos DO PCP - General Internal [address] [place] [address] [email or web address] 11/29/18 Frederick Bonner MD Orthopedics [address] [place] [address] 10/26/19 Matrina Szymanski MD Neurology [address] [place], [place] [phone] [email or web address] 03/01/21 Shimon Paula MD Neurology [address] [place] [address] [phone] documented as of this encounter
--- OUTSIDE RECORDS SUMMARY | 2021-04-14 10:19 | XMS REPORT | Encounter Summary ---
Author Author [facility] Address Unknown Phone Unavailable Care Team Providers Care Simulation Tech Name Role Phone Dorie Campos DO PCP Frederick Bonner MD Unavailable Martina Szymanski MD Unavailable Shimon Paula MD Unavailable Encounter Details Care Team Description Date Type Department Dorie Campos DO [address] [address] [email or web address] 04/02/2021 Chart Note Latrell Castro`Anjum Inter formerly [facility] Medicine - [place] [address] [place] [address] Social History Date Tobacco Use Types Packs/Day [...] Progress Notes - Vonnie Barnes MA - 04/02/2021 7:47 AM CRATER AND PACKER Fax received from [facility] . Sent to provider for review. ER AND PACKER documented in this encounter Plan of Treatment Care Team Description Date Type Specialty Bora Vital MD [address] [address] [email or web address] 04/25/2021 Office Visit Orthopedic Surgery 04/26/2021 Clinical Internal Medicine Support Giuliana Knowles, AUTOBODY TECHNICIAN [address] [place] [address] [email or web address] 07/26/2021 Office Visit Internal Medicine Rosalina Pyle MD [address] [phone] [email or web address] 08/03/2021 Initial consult Neurology Dorie Campos DO [address] [place], [place] [address] [email or web address] 01/29/2022 Office Visit Internal Medicine 01/29/2022 Imaging Radiology 01/29/2022 Imaging Radiology documented as of this encounter Goals Goal Patient Associated Recent Progress Patient-Stat Aut hor Goal Type Problems ed? Joint Replacement Surgery General Yes Mini Acuna cas, RN Note: Patient-stated Short Term Goal after Total Joint Replacement surgery: Decrease Pain Patient-stated Retirement Goal for Total Joint Replacement surgery: better mobility Joint Replacement Surgery General Yes Vaughn Browning, RN Note: Patient-stated Short Term Goal after Total Joint Replacement surgery: Decrease Pain, Increase Mobility and within 2-3 weeks be able to dress self without pain. Patient-stated Retirement Goal for Total Joint Replacement surgery: within 3-6 months, be able to do etcher electrolytic and ADLs. documented as of this encounter Procedures Comments Procedure Name Priority Date/Time Associated Diag nosis EXTERNAL RECORD ORDER Routine 03/29/2021 documented in this encounter Visit Diagnoses Not on filedocumented in this encounter Care Teams Start Date End Date Simulation Tech Relationship Specialty 01/21/17 Dorie Campos DO PCP - General Internal [address] Medicine [place], [place] [phone] [email or web address] 11/29/18 Frederick Bonner MD Orthopedics [address] [phone] [email or web address] [email or web address].[facility] 10/26/19 Martina Szymanski MD Neurology [address] [place], [place] [address] [email or web address] [email or web address].[facility] 03/01/21 Shimon Paula MD Neurology [address] [place] [address] [phone] documented as of this encounter
--- OUTSIDE RECORDS SUMMARY | 2021-04-14 10:19 | XMS REPORT | Encounter Summary ---
Author Author [facility] Address Unknown Phone Unavailable Care Team Providers Care Final Finisher Name Role Phone Dorie Campos DO PCP Frederick Bonner MD Unavailable Martina Szymanski MD Unavailable Shimon Paula MD Unavailable Encounter Details Care Team Description Date Type Department Dorie Campos DO [address] [address] [email or web address] 03/14/2021 Chart Note Latrell Castro`Anjum Inter [facility] Medicine - [place] [address] [place] [address] Social History Date Tobacco Use Types Packs/Day [...] Progress Notes - Vonnie Barnes MA - 03/14/2021 9:38 AM LEATHER COATER Fax received from [facility] . Sent to provider for revi ew. HER COATER documented in this encounter Plan of Treatment Care Team Description Date Type Specialty Bora Vital MD [address] [address] [email or web address] 04/25/2021 Office Visit Orthopedic Surgery 04/26/2021 Clinical Internal Medicine Support Giuliana Knowles, AUTOMOBILE OR TRUCK RENTAL DISPATCHER [address] [place] [address] [email or web address] 07/26/2021 Office Visit Internal Medicine Rosalina Pyle MD [address] [address] [email or web address] [facility] 08/03/2021 Initial consult Neurology Dorie Campos DO [address] [place], [place] [address] [email or web address]YCHI[facility] [email or web address] 01/29/2022 Office Visit Internal Medicine 01/29/2022 Imaging Radiology 01/29/2022 Imaging Radiology documented as of this encounter Goals Goal Patient Associated Recent Progress Patient-Stat Aut hor Goal Type Problems ed? Joint Replacement Surgery General Yes Mini Acuna cas, RN Note: Patient-stated Short Term Goal after Total Joint Replacement surgery: Decrease Pain Patient-stated Grey Goods Tester Goal for Total Joint Replacement surgery: better mobility Joint Replacement Surgery General Yes Vaughn Browning, RN Note: Patient-stated Short Term Goal after Total Joint Replacement surgery: Decrease Pain, Increase Mobility and within 2-3 weeks be able to dress self without pain. 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 documented as of this encounter Procedures Comments Procedure Name Priority Date/Time Associated Diag nosis EXTERNAL RECORD ORDER Routine 03/13/2021 documented in this encounter Visit Diagnoses Not on filedocumented in this encounter Care Teams Start Date End Date Final Finisher Relationship Specialty 01/21/17 Symmonds, Dorie N, DO PCP - General Internal [address] [phone] [email or web address] 11/29/18 Frederick Bonner MD Orthopedics [address] [phone] [email or web address]YCHIAT[facility] [email or web address].[facility] 10/26/19 Martina Szymanski MD Neurology [address] [place] [address] BRUCE@[email or web address]YCHIAT[facility] [email or web address].[facility] 03/01/21 Shimon Paula MD Neurology [address] [place] [address] documented as of this encounter
--- OUTSIDE RECORDS SUMMARY | 2021-04-14 10:19 | XMS REPORT | Encounter Summary ---
Author Author [facility] Address Unknown Phone Unavailable Care Team Providers Care Entry Level Paralegal Name Role Phone Dorie Salgado DO PCP Frederick Bonner MD Unavailable Martina Szymanski MD Unavailable Reason for Referral * Imaging Prior Auth (Routine) - Closed Diagnoses / Procedures Referred By Contact Referred To Conta ct Specialty Diagnoses Syncope, unspecified syncope type Bilateral carotid artery stenosis Procedures Echocardiogram Adult - 1 hour (use contrast, 3D, and strain as indicated) Dorie Salgado DO [address] [place] [address] Referral ID Status Reason Start Date Expiration Visits Vi sits Date Requested Authorized [id number] Closed Specialty Services 02/21/2021 02/21/2022 1 1 Required * Imaging Prior Auth (Routine) - Closed Diagnoses / Procedures Referred By Contact Referred To Conta ct Specialty Diagnoses Syncope, unspecified syncope type Bilateral carotid artery stenosis Procedures US Cerebrovascular Arterial Extracranial (Carotid) - 0.75 hour Dorie Salgado DO [address] [place] [address] Referral ID Status Reason Start Date Expiration Visits Vi sits Date Requested Authorized [id number] Closed Specialty Services 02/21/2021 02/21/2022 1 1 Required * Consultation (Routine) - Authorized Diagnoses / Procedures Referred By Contact Referred To Conta ct Specialty Diagnoses Syncope, unspecified syncope type Seizure (HCC) Dorie Salgado DO [address] [place] [address] Rosalnia Pyle MD [address] [address] Neurology Referral ID Status Reason Start Date Expiration Visits Vi sits Date Requested Authorized [id number] Authorized Specialty Services 02/20/2021 02/20/2022 1 1 Required Scheduling Instructions This referral is for consult orders only. If you are wanting a procedure you must place the order for that procedure to start the referral process. For referrals to be scheduled with Dr. Szymanski, Dr. Pike, and Dr. Major you must select [facility] Neurology for the department. For Referrals to be scheduled with Dr. Pyle you must select [facility] Neurology * Imaging Prior Auth (Routine) - Closed Diagnoses / Procedures Referred By Contact Referred To Conta ct Specialty Diagnoses Syncope, unspecified syncope type Seizure (HCC) Procedures EEG Dorie Salgado DO [address] [place] [address] Referral ID Status Reason Start Date Expiration Visits Vi sits Date Requested Authorized [id number] Closed Specialty Services 02/20/2021 02/20/2022 1 1 Required Reason for Visit * Reason Comments Other Hospital follow up Dehydration Encounter Details Care Team Description Date Type Department Dorie Salgado DO [address] [place] [address] [email or web address] Seizure (HCC) (Primary Dx); Syncope, unspecified syncope type; Traumatic ecchymosis of abdominal wall, initial encounter; Hypokalemia; Hospital discharge follow-up; Pulmonary nodule; Bilateral carotid artery stenosis 02/20/2021 Office Visit Latrell Martinezil [facility] [address] [place] [address] Social History Date Tobacco Use Types Packs/Day [...] on file documented as of this encounter Last Filed Vital Signs Reading Time Taken Comments Vital Sign 130/64 02/20/2021 1:42 PM CDT Blood Pressure 88 02/20/2021 1:42 PM CDT Pulse 36 C (96.8 F) 02/20/2021 1:42 PM CDT Temperature 18 02/20/2021 1:42 PM CDT Respiratory Rate 97% 02/20/2021 1:42 PM CDT Oxygen Saturation - - Inhaled Oxygen Concentration 65.1 kg (143 lb 9.6 oz) 02/20/2021 1:42 PM CDT Weight 149.9 cm (4' 11") 02/20/2021 1:42 PM CDT Height 29 02/20/2021 1:42 PM CDT Body Mass Index documented in this encounter Miscellaneous Notes * Assessment & Plan Note - Dorie Salgado DO - 02/21/2021 12:56 PM CDT Associated Problem(s): Pulmonary nodule Chronic Reviewed CT chest 01/2021 Will plan to repeat CT chest 01/2022 * Assessment & Plan Note - Dorie Salgado DO - 02/20/2021 2:10 PM CDT Associated Problem(s): Hospital discharge follow-up Fu after recent hospitalization Will do labs today * Assessment & Plan Note - Dorie Salgado DO - 02/20/2021 2:06 PM CDT Associated Problem(s): Traumatic ecchymosis of abdominal wall, initial encounter - discussed will see if this is getting worse will order CT abdomen - will check CBC in office today * Assessment & Plan Note - Dorie Salgado DO - 02/20/2021 2:02 PM CDT Associated Problem(s): Syncope - has appt with Dr Bennett next week to follow-up - still doesn't quite feel right - MRI was normal - rhythm was normal on telemetry during hospital stay - referral to neurology (seizure vs syncope) * Addendum Note - Dorie Salgado DO - 02/20/2021 1:30 PM CDT Addended by: DORIE SALGADO on: 02/21/2021 01:03 PM Modules accepted: Orders, SmartSet * Progress Notes - Dorie Salgado DO - 02/20/2021 1:30 PM CDT [facility] [place] [address] [place] [id number] 02/20/2021 Patient: Tamanna Thomas : 1935 Date: 02/20/2021 Subjective Chief Complaint Patient presents with Other Hospital follow up Dehydration Tamanna Thomas is a 85 y.o. female who had concerns including Other (H ospital follow up) and Dehydration. HPI Admission date: 02/11/21 Discharge date: 02/13/21 Date interactive contact was made to patient or caregiver: 02/14/21 2 call attempts were made but I did NOT reach the patient: Not Applicable No data recorded Acute metabolic encephalopathy Most likely 2/2 dehydration - lactic acidosis resolved - recommended to repeat BMP in 1 week Hypokalemia Potassium on discharge from hospital was 3.3 Needs repeat BMP Lactic acid elevated No sign of infection procalcitonin normal Patient had episode at home - son thought she had seizure - she had syncopal episode - called ambulance and ws taken to the hospital - she even had one time where she was talking "gibberish" at home - went to hospital - negative workup at hospital Patient Active Problem List Diagnosis Osteoarthritis of hip Prediabetes Primary osteoarthritis involving multiple joints Annual physical exam Osteopenia of neck of left femur Screening for breast cancer Essential hypertension 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 Vitamin D deficiency Primary osteoarthritis of left shoulder Gastroesophageal reflux disease without esophagitis Chronic fatigue Left thyroid nodule Pulmonary nodule Arthropathy of left shoulder Left hip pain DDD (degenerative disc disease), lumbar Sacroiliac joint dysfunction Olecranon bursitis of right elbow Neck pain, chronic DDD (degenerative disc disease), cervical Wart on thumb Hospital discharge follow-up Mixed hyperlipidemia Vitamin B12 deficiency Syncope Traumatic ecchymosis of abdominal wall, initial encounter Hypokalemia Outpatient Medications Marked as Taking for the 02/20/21 encounter (Office Visit) with Dorie Salgado, DO Medication Sig acetaminophen (TYLENOL) 500 MG tablet Take 500 mg by mouth every 6 (six) edwina rs as needed for Mild Pain. acetaminophen-codeine (TYLENOL #3) 300-30 MG per tablet Take 1 tablet by carlos th every 6 (six) hours as needed for Moderate Pain. Alum Hydroxide-Mag Trisilicate (GAVISCON) 80-14.2 MG CHEW Take 3 tablets by mouth as needed. atorvastatin (LIPITOR) 40 MG tablet TAKE 1 TABLET DAILY B Complex Vitamins (VITAMIN B COMPLEX PO) Take by mouth. Calcium-Vitamin D-Vitamin K 650-12.5-40 MG-MCG-MCG CHEW Chew 1 tablet every other day. carvedilol (COREG) 3.125 MG tablet Take 1 tablet (3.125 mg total) by mouth 2 (two) times daily with meals. chlorhexidine (PERIDEX) 0.12 % solution Twice a Day clobetasol (TEMOVATE) 0.05 % cream Apply topically 2 (two) times daily as ne eded. clopidogrel (PLAVIX) 75 MG tablet TAKE 1 TABLET DAILY diclofenac (VOLTAREN) 1 % gel APPLY 2-4 GRAMS TOPICALLY TO AFFECTED AREA FOU R TIMES DAILY fenofibrate (TRIGLIDE) 160 MG tablet Take 1 tablet (160 mg total) by mouth d aily. hydroCHLOROthiazide (HYDRODIURIL) 25 MG tablet Take 1 tablet (25 mg total) b y mouth daily. ibuprofen (ADVIL,MOTRIN) 200 MG tablet Take 200-400 mg by mouth as needed. lisinopril (PRINIVIL,ZESTRIL) 2.5 MG tablet Take 1 tablet (2.5 mg total) by mouth daily. multivitamin w/minerals (CENTRUM) TABS Take 1 tablet by mouth daily. pantoprazole (PROTONIX) 40 MG tablet TAKE 1 TABLET TWICE A DAY traMADol (ULTRAM) 50 MG tablet TAKE 1 TABLET BY MOUTH 4 TIMES DAILY NEEDE D Trolamine Salicylate (ASPERCREME EX) Apply topically. vitamin C (ASCORBIC ACID) 500 MG tablet Take 500 mg by mouth daily. Allergies Allergen Reactions Etodolac Diarrhea Nystatin Rash Valdecoxib Rash Bextra Bacitracin Other (See Comments) Causes weepy skin Clindamycin Other (See Comments) States prob a rash Gabapentin Other (See Comments) Makes her agitated. Iodine Other (See Comments) Happened with CT dye-does not remember what happened. States betadine topical is ok with no reaction Latex Other (See Comments) Patient reports skin reaction to the adhesive on the bandaids Levaquin [Levofloxacin In D5w] Other (See Comments) cuased her fingernails to flake off Lyrica [Pregabalin] Other (See Comments) Unknown reaction Morphine Other (See Comments) "makes me crazy" Neomycin Other (See Comments) Causes weepy skin Polymyxin B Other (See Comments) Causes weepy skin Doxycycline Rash Rash Erythromycin Base Nausea Only GI distress Sulfamethoxazole Rash Review of Systems Constitutional: Negative. Respiratory: Negative. Cardiovascular: Negative. Gastrointestinal: Negative. Endocrine: Negative. Genitourinary: Negative. Musculoskeletal: Negative. Neurological: Positive for weakness. Syncope Psychiatric/Behavioral: Negative. Objective Visit Vitals BP 130/64 (BP Location: Left arm, Patient Position: Sitting, Cuff Size: Large Ad ult) Pulse 88 Temp 96.8 F (36 C) (Temporal) Resp 18 Ht 4' 11" (1.499 m) Wt 143 lb 9.6 oz (65.1 kg) SpO2 97% BMI 29.00 kg/m Physical Exam Constitutional: Appearance: She is well-developed. HENT: Head: Normocephalic and atraumatic. Cardiovascular: Rate and Rhythm: Normal rate and regular rhythm. Heart sounds: Normal heart sounds. No murmur heard. Pulmonary: Effort: Pulmonary effort is normal. Breath sounds: Normal breath sounds. No wheezing. Musculoskeletal: General: Normal range of motion. Neurological: Mental Status: She is alert and oriented to person, place, and time. Psychiatric: Behavior: Behavior normal. Judgment: Judgment normal. Lab Results Component Value Date WBC 6.4 01/24/2021 HGB 13.1 01/24/2021 HCT 41.2 01/24/2021 PLT 249 01/24/2021 CHOL 137 01/24/2021 TRIG 81 01/24/2021 HDL 59 01/24/2021 ALT 25 01/24/2021 AST 13 (L) 01/24/2021 NA 142 02/20/2021 K 3.4 (L) 02/20/2021 CL 103 02/20/2021 CREATININE 0.77 02/20/2021 BUN 21 (H) 02/20/2021 CO2 37 (H) 02/20/2021 TSH 2.854 01/24/2021 GLU 125 (H) 02/20/2021 HGBA1C 5.9 01/24/2021 Assessment/Plan 1. Seizure (HCC) - EEG; Future - Ambulatory referral to Neurology 2. Syncope, unspecified syncope type Assessment & Plan: - has appt with Dr Bennett next week to follow-up - still doesn't quite feel right - MRI was normal - rhythm was normal on telemetry during hospital stay - referral to neurology (seizure vs syncope) Orders: - EEG; Future - Ambulatory referral to Neurology - Cerebrovascular Arterial Extracranial (Carotid) - 0.75 hour - Echocardiogram Adult - 1 hour (use contrast, 3D, and strain as indicated); Future 3. Traumatic ecchymosis of abdominal wall, initial encounter Assessment & Plan: - discussed will see if this is getting worse will order CT abdomen - will check CBC in office today 4. Hypokalemia - Basic metabolic panel; Future 5. Hospital discharge follow-up Assessment & Plan: Fu after recent hospitalization Will do labs today 6. Pulmonary nodule Assessment & Plan: Chronic Reviewed CT chest 01/2021 [address] to repeat CT chest 01/2022 7. Bilateral carotid artery stenosis - US Cerebrovascular Arterial Extracranial (Carotid) - 0.75 hour - Echocardiogram Adult - 1 hour (use contrast, 3D, and strain as indicated); Future Will reach out to Dr Pyle re: MRI with diffusion or CTA head / neck and see wha t he might prefer that I order (if anything) prior to seeing her No carotid / Echo ordered or done recently - did order those to be done at [facility] ( Dr Bennett to read) Return if symptoms worsen or fail to improve. Dorie Salgado DO Electronically Signed 02/21/2021 1:03 PM Division of [facility] [email or web address] 7 of 7 * Progress Notes - Nuvia Gallegos MA - 02/20/2021 1:30 PM CDT Patient presents for Hospital follow up. Patient was admitted on 02/11/2021 to [facility] for dehydration. Patient was discharged on 02/13/2021. Patient has concerns with bruise to left lower abdomen after getting some sort o f shot while in the hospital. Medications updated per protocol. Patient due for: COVID 19 vaccines: declined Shingrix: declined Td or Tdap: declined documented in this encounter Plan of Treatment Care Team Description Date Type Specialty Bora Vital MD [address] [id number] [email or web address] 04/25/2021 Office Visit Orthopedic Surgery 04/26/2021 Clinical Internal Medicine Support Giuliana Knowles, FISHING LURE ASSEMBLER [address] [place] [address] [email or web address] 07/26/2021 Office Visit Internal Medicine Rosalina Pyle MD [address] [address] [email or web address] 08/03/2021 Initial consult Neurology Dorie Salgado, DO [address] [place], [place] [address] [email or web address] 01/29/2022 Office Visit Internal Medicine 01/29/2022 Imaging Radiology 01/29/2022 Imaging Radiology Order Schedule Name Type Priority Associated Diag noses Ordered: 02/21/2021 Cerebrovascular Imaging Routine Syncope, un specified Arterial Extracranial syncope type (Carotid) - 0.75 hour Bilateral carotid artery stenosis Expected: 02/22/2021, Expires: 2 Echocardiogram Adult - 1 Imaging Routine Synco pe, unspecified hour (use contrast, 3D, syncope type and strain as indicated) Bilateral carotid artery stenosis Order Schedule Name Type Priority Associated Diag noses Ordered: 02/20/2021 Ambulatory referral to Outpatient Routine Syncope , unspecified Neurology Referral syncope type Seizure (HCC) documented as of this encounter Goals Goal Patient Associated Recent Progress Patient-Stat Aut hor Goal Type Problems ed? 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 documented as of this encounter Results * EEG (03/02/2021 8:13 AM DIRECTOR OF SPEECH PATHOLOGY) Narrative Jakub Rothman MD - 03/02/2021 8:13 AM DIRECTOR OF SPEECH PATHOLOGY Jakub Rothman MD 03/02/2021 4:48 PM [facility] [address] [facility] [address] 03/02/2021 Electroencephalogram (EEG) Report Patient: Tamanna Thomas : 1935 Primary Care Provider: Dorie Salgado DO Referring Provider: No ref. provider found Test #: Braille Duplicating Machine Operator: ANTONIO Instrument: Technical data obtained at [facility] Patient State: A&O Last Meal: 10:30 am Handedness: right handed Medications: has a current medication list which includes the following prescription(s): acetaminophen, acetaminophen-codeine, alum hydroxide-mag trisilicate, atorvastatin, b complex vitamins, calcium-vitamin d-vitamin k, carvedilol, chlorhexidine, clobetasol, clopidogrel, diclofenac, fenofibrate, hydrochlorothiazide, ibuprofen, lisinopril, multivitamin w/minerals, pantoprazole, tramadol, trolamine salicylate, and vitamin c. Diagnosis: Syncope and seizure History: Patient presented to [facility] on 02/11/2021 due to change in mental [...] on frequency 17 and 21. CC: Dorie Salgado DO, No ref. provider found DESCRIPTION: This [...] MD Electronically Signed 03/02/2021 4:44 PM * Basic metabolic panel (02/20/2021 2:16 PM CDT) Sodium 142 136 - 145 mmol/L [facility] Potassium 3.4 (L) 3.5 - 5.1 mmol/L [facility] Chloride 103 98 - 107 mmol/L [facility] CO2 37 (H) 21 - 32 mmol/L [facility] Anion Gap 2 [facility] Glucose 125 (H) 74 - 106 mg/dL [facility] Calcium 9.2 8.8 - 10.1 mg/dL [facility] BUN, Bld 21 (H) 7 - 18 mg/dL [facility] Creatinine 0.77 0.55 - 1.02 mg/dL [facility] eGFR >59 >59 mL/min [facility] Specimen Blood Performing Organization Address City/State/ZIP Code P jeronimo Number [facility] [address] [place] [address] documented in this encounter Visit Diagnoses Diagnosis Seizure (HCC) - Primary Other convulsions Syncope, unspecified syncope type Traumatic ecchymosis of abdominal wall, initial encounter Hypokalemia Hypopotassemia Hospital discharge follow-up Other follow-up examination Pulmonary nodule Solitary pulmonary nodule Bilateral carotid artery stenosis Occlusion and stenosis of multiple and bilateral precerebral arteries without mention of cerebral infarction documented in this encounter Care Teams Start Date End Date Entry Level Paralegal Relationship Specialty 01/21/17 Dorie Salgado DO PCP - General Internal [address] [address] [email or web address] 11/29/18 Frederick Bonner MD Orthopedics [address] [place] [address] [email or web address] 10/26/19 Martina Szymanski MD Neurology [address] [place] [address] [email or web address] documented as of this encounter
--- OUTSIDE RECORDS SUMMARY | 2021-04-14 10:19 | XMS REPORT | Encounter Summary ---
Author Author [facility] Address Unknown Phone Unavailable Care Team Providers Care Carbon Brushes Assembler Name Role Phone Dorie Campos DO PCP Frederick Bonner MD Unavailable Martina Szymanski MD Unavailable Encounter Details Care Team Description Date Type Department Dorie Campos DO [address] [id number] [email or web address] Other chronic pain; Need for home health care 02/27/2021 Treatment Latrell Castro`Anjum Inter [facility] [place] [address] [place] [phone] Social History Date Tobacco Use Types Packs/Day [...] encounter Miscellaneous Notes * Progress Notes - Danika Gore MA - 02/27/2021 1:15 PM THEATRE INSTRUCTOR [address] Form [facility]. Re certification period 02/10/2021 to 04/10/20 21. TRE INSTRUCTOR documented in this encounter Plan of Treatment Care Team Description Date Type Specialty Bora Vital MD [address] [address] [email or web address] 04/25/2021 Office Visit Orthopedic Surgery 04/26/2021 Clinical Internal Medicine Support Giuliana Knowles, WATER FILTRATION TECHNICIAN [address] [place] [address] [email or web address] 07/26/2021 Office Visit Internal Medicine Rosalina Pyle MD [address] [phone] [email or web address] 08/03/2021 Initial consult Neurology Dorie Campos DO [address] [place], [place] [phone] [email or web address] 01/29/2022 Office Visit Internal Medicine 01/29/2022 Imaging Radiology 01/29/2022 Imaging Radiology documented as of this encounter Goals Goal Patient Associated Recent Progress Patient-Stat Aut hor Goal Type Problems ed? Joint Replacement Surgery General Yes Mini Acuna cas, RN Note: Patient-stated Short Term Goal after Total Joint Replacement surgery: Decrease Pain Patient-stated Senior Living Goal for Total Joint Replacement surgery: better mobility Joint Replacement Surgery General Yes Vaughn Browning, RN Note: Patient-stated Short Term Goal after Total Joint Replacement surgery: Decrease Pain, Increase Mobility and within 2-3 weeks be able to dress self without pain. Patient-stated Senior Living Goal for Total Joint Replacement surgery: within 3-6 months, be able to do psychiatric np and ADLs. documented as of this encounter Visit Diagnoses Diagnosis Other chronic pain Need for home health care No other household member able to rende r care documented in this encounter Care Teams Start Date End Date Carbon Brushes Assembler Relationship Specialty 01/21/17 Dorie Campos DO PCP - General Internal [address] [place], [place] [id number] [email or web address] 11/29/18 Frederick Bonner MD Orthopedics [address] [place] [id number] [email or web address] 10/26/19 Martina Szymanski MD Neurology [address] [place] [address] [email or web address] documented as of this encounter
--- OUTSIDE RECORDS SUMMARY | 2021-04-14 10:19 | XMS REPORT | Encounter Summary ---
Author Author [facility] Address Unknown Phone Unavailable Care Team Providers Care Sparker And Patcher Name Role Phone Dorie Campos DO PCP Frederick Bonner MD Unavailable Martina Szymanski MD Unavailable Shimon Paula MD Unavailable Encounter Details Care Team Description Date Type Department Dorie Campos DO [address] [address] [email or web address] [place] 03/28/2021 Chart Note Latrell Castro`Anjum Inter [facility] Medicine - [place] [address] [place] [phone] Social History Date Tobacco Use Types Packs/Day [...] Progress Notes - Vonnie Barnes MA - 03/28/2021 8:24 AM TAPING MACHINE OPERATOR Fax received from [facility] . Sent to provider for revi ew. NG MACHINE OPERATOR documented in this encounter Plan of Treatment Care Team Description Date Type Specialty Bora Vital MD [address] [address] [email or web address] 04/25/2021 Office Visit Orthopedic Surgery 04/26/2021 Clinical Internal Medicine Support Giuliana Knowles, ASSEMBLY MACHINE TENDER [address] [place] [address] [email or web address] 07/26/2021 Office Visit Internal Medicine Rosalina Pyle MD [address] [address] [email or web address] 08/03/2021 Initial consult Neurology Dorie Campos DO [address] [place], [place] [phone] [email or web address].[employer] 01/29/2022 Office Visit Internal Medicine 01/29/2022 Imaging Radiology 01/29/2022 Imaging Radiology documented as of this encounter Goals Goal Patient Associated Recent Progress Patient-Stat Aut hor Goal Type Problems ed? 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 documented as of this encounter Procedures Comments Procedure Name Priority Date/Time Associated Diag nosis EXTERNAL RECORD ORDER Routine 03/27/2021 documented in this encounter Visit Diagnoses Not on filedocumented in this encounter Care Teams Start Date End Date Sparker And Patcher Relationship Specialty 01/21/17 Symmonds, Dorie N, DO PCP - General Internal [address] [phone] [email or web address] [place] 11/29/18 Frederick Bonner MD Orthopedics [address] [phone] [email or web address] [email or web address] [place] 10/26/19 Martina Szymanski MD Neurology [address] [place] [address] [email or web address].[email or web address] [place] 03/01/21 Shimon Paula MD Neurology [address] [place] [id number] documented as of this encounter
--- OUTSIDE RECORDS SUMMARY | 2021-04-14 10:19 | XMS REPORT | Encounter Summary ---
Author Author [facility] Address Unknown Phone Unavailable Care Team Providers Care Anesthetic Assistant Name Role Phone Dorie Campos DO PCP Frederick Bonner MD Unavailable Martina Szymanski MD Unavailable Shimon Paula MD Unavailable Reason for Visit * Reason Onset Date Comments Requesting Appointment 03/28/2021 Vit B 12 inject ion Encounter Details Care Team Description Date Type Department Dorie Campos DO [address] [place] [address] [email or web address] Requesting Appointment (Vit B 12 injecti on) 03/28/2021 Telephone Latrell Saleh [facility] [address] [place], [place] [phone] Social History Date Tobacco Use Types Packs/Day [...] encounter Miscellaneous Notes * Telephone Encounter - Deborah Marino LPN - 04/03/2021 10:51 AM WIRELESS TECHNICIAN Called patient back and spoke with daughter. Gave provider recommendations. Gwen mcdonough. No further questions at this time. LESS TECHNICIAN * Telephone Encounter - Dorie Campos DO - 04/02/2021 4:59 PM WIRELESS TECHNICIAN Ok - please let patient know to stop her plavix after she takes her dose tomorro w Then she will be off starting Friday until procedure Can restart after her procedure LESS TECHNICIAN * Telephone Encounter - Amrita Barrios RN - 04/02/2021 4:[address] Tompkins office called back. Patient needs to be off her Plavix for 7 day s prior to appointment and yes it is on 04/10. Patient notified and she verbalized understanding. LESS TECHNICIAN * Telephone Encounter - Deborah Marino LPN - 04/02/2021 11:43 AM WIRELESS TECHNICIAN Called to Dr. Sandoval's office and left voicemail asking for a call back. LESS TECHNICIAN * Telephone Encounter - Dorie Campos DO - 04/02/2021 10:13 AM WIRELESS TECHNICIAN Received note from patient - she has scheduled possible injection with Dr Fox ield Needs to be off plavix - I think date of procedure is 04/10 Usually off 3-5 days prior to that for the procedure Might call Dr Sandoval office first and see what date her procedure is and how many days they normally like - is it 3 days or 5 days Then call patient and let her know WET END SUPERVISOR LESS TECHNICIAN * Telephone Encounter - Tomasa Tapia LPN - 03/29/2021 10:11 AM WIRELESS TECHNICIAN Orders were placed for patient to receive her B12 injection every 30 days for th e next year. Called patient and she is scheduled to come in this afternoon at 2: 30 pm to get her first B12 injection. LESS TECHNICIAN * Telephone Encounter - Dorie Campos DO - 03/28/2021 3:32 PM WIRELESS TECHNICIAN Ok to set up b12 injection Patient can get monthly b12 x 1 year Please work out for patient schedule WET END SUPERVISOR LESS TECHNICIAN * Telephone Encounter - Sil Kumar, RN - 03/28/2021 12:13 PM WIRELESS TECHNICIAN Pt leaves VM stating she would like to be put on the schedule AWILDA for the Vit B -12 shot. States she has not received it because of the pandemic, but would like to begin getting it now. Please call pt with recommendations. No orders noted for Vit B-12 injections. Last Vit B-12 lab on was 1,[address] Campos for review and order. LESS TECHNICIAN documented in this encounter Plan of Treatment Care Team Description Date Type Specialty Bora Vital MD [address] [address] [email or web address] [facility] 04/25/2021 Office Visit Orthopedic Surgery 04/26/2021 Clinical Internal Medicine Support Giuliana Knowles, CEPHALOMETRIC ANALYST [address] [place], [place] [phone] [email or web address] [facility] 07/26/2021 Office Visit Internal Medicine Rosalina Pyle MD [address] [phone] [email or web address] [facility] 08/03/2021 Initial consult Neurology Dorie Campos DO [address] [place] [address] [email or web address] [facility] 01/29/2022 Office Visit Internal Medicine 01/29/2022 Imaging Radiology 01/29/2022 Imaging Radiology documented as of this encounter Goals Goal Patient Associated Recent Progress Patient-Stat Aut hor Goal Type Problems ed? Joint Replacement Surgery General Yes Mini Acuna cas RN Note: Patient-stated Short Term Goal after Total Joint Replacement surgery: Decrease Pain Patient-stated Nursing Home Goal for Total Joint Replacement surgery: better mobility Joint Replacement Surgery General Yes Vaughn Browning RN Note: Patient-stated Short Term Goal after Total Joint Replacement surgery: Decrease Pain, Increase Mobility and within 2-3 weeks be able to dress self without pain. 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 documented as of this encounter Visit Diagnoses Diagnosis Vitamin B12 deficiency - Primary Other B-complex deficiencies documented in this encounter Care Teams Start Date End Date Anesthetic Assistant Relationship Specialty 01/21/17 Dorie Campos DO PCP - General Internal [address] [place] [address] [email or web address].[employer] [facility] 11/29/18 Frederick Bonner MD Orthopedics [address] [phone] [email or web address] [facility] 10/26/19 Martina Szymanski MD Neurology [address] [place] [address] [email or web address] [facility] 03/01/21 Shimon Paula MD Neurology [address] [place] [address] [phone] documented as of this encounter
--- OUTSIDE RECORDS SUMMARY | 2021-04-14 10:19 | XMS REPORT | Encounter Summary ---
Author Author [facility] Address Unknown Phone Unavailable Care Team Providers Care Retail Advertising Sales Manager Name Role Phone Dorie Campos DO PCP Frederick Bonner MD Unavailable Martina Szymanski MD Unavailable Shimon Paula MD Unavailable Encounter Details Care Team Description Date Type Department Dorie Campos DO [address] [address] [email or web address] 03/13/2021 Chart Note Latrell Castro`Anjum Inter [facility] Medicine - [place] [address] [place] [address] Social History Date Tobacco Use Types Packs/Day [...] Progress Notes - Vonnie Barnes MA - 03/13/2021 1:46 PM CONTACT LENS CUTTER Fax received from [facility] . Sent to provider for review. ACT LENS CUTTER documented in this encounter Plan of Treatment Care Team Description Date Type Specialty Bora Vital MD [address] [address] [email or web address] 04/25/2021 Office Visit Orthopedic Surgery 04/26/2021 Clinical Internal Medicine Support Giuliana Knowles, VETERINARY ATTENDANT [address] [place] [address] [email or web address] 07/26/2021 Office Visit Internal Medicine Rosalina Pyle MD [address] [place] [address] [email or web address] 08/03/2021 Initial consult Neurology Dorie Campos DO [address] [place], [place] [address] [email or web address] 01/29/2022 Office Visit Internal Medicine 01/29/2022 Imaging Radiology 01/29/2022 Imaging Radiology documented as of this encounter Goals Goal Patient Associated Recent Progress Patient-Stat Aut hor Goal Type Problems ed? Joint Replacement Surgery General Yes Mini Acuna cas, RN Note: Patient-stated Short Term Goal after Total Joint Replacement surgery: Decrease Pain Patient-stated Correction Goal for Total Joint Replacement surgery: better mobility Joint Replacement Surgery General Yes Vaughn Browning, RN Note: Patient-stated Short Term Goal after Total Joint Replacement surgery: Decrease Pain, Increase Mobility and within 2-3 weeks be able to dress self without pain. 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 documented as of this encounter Procedures Comments Procedure Name Priority Date/Time Associated Diag nosis EXTERNAL RECORD ORDER Routine 03/13/2021 documented in this encounter Visit Diagnoses Not on filedocumented in this encounter Care Teams Start Date End Date Retail Advertising Sales Manager Relationship Specialty 01/21/17 Dorie Campos DO PCP - General Internal [address] Medicine [place], [place] [phone] [email or web address] 11/29/18 Frederick Bonner MD Orthopedics [address] [address] [email or web address] [email or web address].[email or web address] 10/26/19 Martina Szymanski MD Neurology [address] [place], [place] [phone] [email or web address] [email or web address].[email or web address] 03/01/21 Shimon Paula MD Neurology [address] [place] [phone] documented as of this encounter
--- OUTSIDE RECORDS SUMMARY | 2021-04-14 10:19 | XMS REPORT | Encounter Summary ---
Author Author [facility] Address Unknown Phone Unavailable Care Team Providers Care Lacrosse Player Name Role Phone Dorie Campos Erick DO PCP Frederick Bonner MD Unavailable Martina Szymanski MD Unavailable Encounter Details Care Team Description Date Type Department Frederick Bonner MD [address] [address] [email or web address] Arthropathy of left shoulder 02/27/2021 Imaging [place] O`[facility] [place] [address] [place] [address] Social History Date Tobacco Use Types Packs/Day [...] Description Date Type Specialty Bora Vital MD [address] [address] [email or web address].[employer] 04/25/2021 Office Visit Orthopedic Surgery 04/26/2021 Clinical Internal Medicine Support Giuliana Knowles, STRIP CUTTER [address] [place] [address] [email or web address] 07/26/2021 Office Visit Internal Medicine Rosalina Pyle MD [address] [place], [place] [address] [email or web address].[employer] 08/03/2021 Initial consult Neurology Dorie Campos, DO [address] [place], [place] [address] [email or web address] [email or web address] 01/29/2022 Office Visit Internal Medicine 01/29/2022 Imaging Radiology 01/29/2022 Imaging Radiology documented as of this encounter Goals Goal Patient Associated Recent Progress Patient-Stat Aut hor Goal Type Problems ed? Joint Replacement Surgery General Yes Mini Acuna cas RN Note: Patient-stated Short Term Goal after Total Joint Replacement surgery: Decrease Pain Patient-stated Shelter Goal for Total Joint Replacement surgery: better mobility Joint Replacement Surgery General Yes Vaughn Browning, RN Note: Patient-stated Short Term Goal after Total Joint Replacement surgery: Decrease Pain, Increase Mobility and within 2-3 weeks be able to dress self without pain. 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 documented as of this encounter Procedures Comments Procedure Name Priority Date/Time Associated Diag nosis XR SHOULDER LEFT AP Routine 02/27/2021 Arthropath y of left INTERNAL AP EXTERNAL 12:45 PM SENIOR JAVA ARCHITECT shoulder AXILLARY documented in this encounter Results * XR Shoulder Left (2+ views) (02/27/2021 12:45 PM SENIOR JAVA ARCHITECT) Modality Anatomical Region Laterality Computed Radiography Shoulder, Chest, Arm Specimen Impressions PACS - 02/27/2021 2:04 PM SENIOR JAVA ARCHITECT Impression: [id number] arthritis the right shoulder joint Narrative PACS - 02/27/2021 2:04 PM SENIOR JAVA ARCHITECT Clinical Indication: ^shoulder pain Findings: 2 views of the right shoulder shows right shoulder arthritis Procedure Note Frederick Bonner MD - 02/27/2021 Clinical Indication: ^shoulder pain Findings: 2 views of the right shoulder shows right shoulder arthritis IMPRESSION: Impression: Bsbd-fj-inic arthritis the right shoulder joint Performing Organization Address City/State/ZIP Code P jeronimo Number PACS documented in this encounter Visit Diagnoses Diagnosis Arthropathy of left shoulder documented in this encounter Care Teams Start Date End Date Lacrosse Player Relationship Specialty 01/21/17 Dorie Campos DO PCP - General Internal [address] [address] [email or web address].[employer] 11/29/18 Frederick Bonner MD Orthopedics [address] [place] [address] [email or web address] [email or web address] [email or web address]..[employer] 10/26/19 Martina Szymanski MD Neurology [address] [place] [address] [email or web address] [email or web address].[facility] documented as of this encounter
--- OUTSIDE RECORDS SUMMARY | 2021-04-14 10:19 | XMS REPORT | Encounter Summary ---
Author Author [facility] Address Unknown Phone Unavailable Care Team Providers Care Passenger Barge Master Name Role Phone Dorie Campos Erick DO PCP Frederick Bonner MD Unavailable Martina Szymanski MD Unavailable Shimon Paula MD Unavailable Reason for Visit * Reason Comments B12 Injection Encounter Details Care Team Description Date Type Department Tomasa Tapia LPN Vitamin B12 deficiency (Primary Dx) 03/29/2021 [facility] O`Anjum Inter nal Support Medicine - [place] [address] [place] [address] Social History Date Tobacco Use Types Packs/Day [...] as of this encounter Miscellaneous Notes * Patient Instructions - Tomasa Tapia LPN - 03/29/2021 2:30 PM TONGUE BINDER Cyanocobalamin, Vitamin B12 injection What is this medicine? CYANOCOBALAMIN (sye an oh koe BAL a min) is a man made form of vitamin B12. Chelsie min B12 is used in the growth of healthy blood cells, nerve cells, and proteins in the body. It also helps with the metabolism of fats and carbohydrates. This m edicine is used to treat people who can not absorb vitamin B12. This medicine may be used for other purposes; ask your health care provider or jayce nguyen if you have questions. COMMON BRAND NAME(S): B-12 Compliance Kit, B-12 Injection Kit, Cyomin, LA-12, Nu tri-Twelve, Physicians EZ Use B-12, Primabalt What should I tell my health care provider before I take this medicine? They need to know if you have any of these conditions: kidney disease Mahi's disease megaloblastic anemia an unusual or allergic reaction to cyanocobalamin, cobalt, other medicines, f oods, dyes, or preservatives or trying to get breast-feeding How should I use this medicine? This medicine is injected into a muscle or deeply under the skin. It is usually given by a health emergency care attendant in a clinic or doctor's office. However, you r doctor may teach you how to inject yourself. Follow all instructions. Talk to your grinder brake lining regarding the use of this medicine in children. Specia l care may be needed. Overdosage: If you think you have taken too much of this medicine contact a pois on control center or emergency room at once. NOTE: This medicine is only for you. Do not share this medicine with others. What if I miss a dose? If you are given your dose at a clinic or doctor's office, call to reschedule yo ur appointment. If you give your own injections and you miss a dose, take it as soon as you can. If it is almost time for your next dose, take only that dose. D o not take double or extra doses. What may interact with this medicine? colchicine heavy alcohol intake This list may not describe all possible interactions. Give your health care prov ider a list of all the medicines, herbs, non-prescription drugs, or dietary supp lements you use. Also tell them if you smoke, drink alcohol, or use illegal drug s. Some items may interact with your medicine. What should I watch for while using this medicine? Visit your doctor or health emergency care attendant regularly. You may need blood work done while you are taking this medicine. You may need to follow a special diet. Talk to your doctor. Limit your alcohol i ntake and avoid smoking to get the best benefit. What side effects may I notice from receiving this medicine? Side effects that you should report to your doctor or health emergency care attendant a s soon as possible: allergic reactions like skin rash, itching or hives, swelling of the face, li ps, or tongue blue tint to skin chest tightness, pain difficulty breathing, wheezing dizziness red, swollen painful area on the leg Side effects that usually do not require medical attention (report to your docto r or health emergency care attendant if they continue or are bothersome): diarrhea headache This list may not describe all possible side effects. Call your doctor for medic al advice about side effects. You may report side effects to FDA at 1-906-LKT-12 88. Where should I keep my medicine? Keep out of the reach of children. Store at room temperature between 15 and 30 degrees C (59 and 85 degrees F). Pro tect from light. Throw away any unused medicine after the expiration date. NOTE: This sheet is a summary. It may not cover all possible information. If you have questions about this medicine, talk to your doctor, pharmacist, or health care provider. 2020 Elsevier/Gold Standard (2008-07-18 22:10:20) UE BINDER * Progress Notes - Tomasa Tapia LPN - 03/29/2021 2:30 PM TONGUE BINDER Patient is here today for her fist B12 injection. She is going to be getting the B12 injections once a month for the next year. She received her injection in her left deltoid. All questions answered. She has no complaints or concerns at this time. UE BINDER documented in this encounter Plan of Treatment Care Team Description Date Type Specialty Bora Vital MD [address] [place] [phone] [email or web address] 04/25/2021 Office Visit Orthopedic Surgery 04/26/2021 Clinical Internal Medicine Support Giuliana Knowles, FORGING DIES FINAL FINISHER [address] [place] [address] [email or web address] 07/26/2021 Office Visit Internal Medicine Rosalina Pyle MD [address] [place], [place] [phone] [email or web address] 08/03/2021 Initial consult Neurology Dorie Campos DO [address] [place], [place] [phone] [email or web address] 01/29/2022 Office Visit Internal Medicine 01/29/2022 Imaging Radiology 01/29/2022 Imaging Radiology documented as of this encounter Goals Goal Patient Associated Recent Progress Patient-Stat Aut hor Goal Type Problems ed? Joint Replacement Surgery General Yes Mini Acuna cas, RN Note: Patient-stated Short Term Goal after Total Joint Replacement surgery: Decrease Pain Patient-stated Mcc Goal for Total Joint Replacement surgery: better mobility Joint Replacement Surgery General Yes Vaughn Browning, RN Note: Patient-stated Short Term Goal after Total Joint Replacement surgery: Decrease Pain, Increase Mobility and within 2-3 weeks be able to dress self without pain. 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 documented as of this encounter Visit Diagnoses Diagnosis Vitamin B12 deficiency - Primary Other B-complex deficiencies documented in this encounter Administered Medications Action Date Dose Rate Site Medication Order MAR Action 03/29/2021 2:47 PM TONGUE BINDER 1,000 mcg Left Del toid cyanocobalamin (VITAMIN B-12) injection Given 1,000 mcg 1,000 mcg EVERY 30 DAYS, Intramuscular, First dose on Cindy 03/29/21 at 1430, For 12 doses documented in this encounter Care Teams Start Date End Date Passenger Barge Master Relationship Specialty 01/21/17 Dorie Campos DO PCP - General Internal [address] Medicine [place], [place] [phone] [email or web address] 11/29/18 Frederick Bonner MD Orthopedics [address] [place] [address] [email or web address].[employer] 10/26/19 Martina Szymanski MD Neurology [address] [place], [place] [phone] [email or web address] 03/01/21 Shimon Paula MD Neurology [address] [place] [phone] documented as of this encounter
--- OUTSIDE RECORDS SUMMARY | 2021-04-14 10:19 | XMS REPORT | Encounter Summary ---
Author Author [facility] Address Unknown Phone Unavailable Care Team Providers Care Senior Hr Manager Name Role Phone Dorie Campos Erick DO PCP Frederick Bonner MD Unavailable Martina Szymanski MD Unavailable Encounter Details Care Team Description Date Type Department Hypokalemia 02/20/2021 Lab Visit [facility] [address] [place], [place] [phone] Social History Date Tobacco Use Types Packs/Day [...] Date Type Specialty Bora Vital MD [address] [address] [email or web address] 04/25/2021 Office Visit Orthopedic Surgery 04/26/2021 Clinical Internal Medicine Support Giuliana Knowles APRN [address] [place], [place] [phone] [email or web address] 07/26/2021 Office Visit Internal Medicine Rosalina Pyle MD [address] [address] [email or web address] 08/03/2021 Initial consult Neurology Dorie Campos, DO [address] [place] [address] [email or web address] 01/29/2022 Office Visit Internal Medicine 01/29/2022 Imaging Radiology 01/29/2022 Imaging Radiology documented as of this encounter Goals Goal Patient Associated Recent Progress Patient-Stat Aut hor Goal Type Problems ed? Joint Replacement Surgery General Yes Mini Acuna cas, RN Note: Patient-stated Short Term Goal after Total Joint Replacement surgery: Decrease Pain Patient-stated Coil Wrapper Goal for Total Joint Replacement surgery: better mobility Joint Replacement Surgery General Yes Vaughn Browning, RN Note: Patient-stated Short Term Goal after Total Joint Replacement surgery: Decrease Pain, Increase Mobility and within 2-3 weeks be able to dress self without pain. 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 documented as of this encounter Procedures Comments Procedure Name Priority Date/Time Associated Diag nosis EXTRA TUBES Routine 02/20/2021 Hypokalemia 2:17 PM CDT EXTRA PURPLE TOP Routine 02/20/2021 Hypokalemia 2:17 PM CDT BASIC METABOLIC PANEL Routine 02/20/2021 Hypokale apollo 2:16 PM CDT documented in this encounter Results * EXTRA PURPLE TOP (02/20/2021 2:17 PM CDT) EXTRA TUBE Extra tube in lab [facility] Specimen Blood Performing Organization Address City/State/ZIP Code P jeronimo Number [facility] [address] [place] [address] [phone] * Basic metabolic panel (02/20/2021 2:16 PM CDT) Sodium 142 136 - 145 mmol/L [facility] Potassium 3.4 (L) 3.5 - 5.1 mmol/L [facility] Chloride 103 98 - 107 mmol/L [facility] CO2 37 (H) 21 - 32 mmol/L [facility] Anion Gap 2 [facility] Glucose 125 (H) 74 - 106 mg/dL [facility] Calcium 9.2 8.8 - 10.1 mg/dL [facility] BUN, Bld 21 (H) 7 - 18 mg/dL [facility] Creatinine 0.77 0.55 - 1.02 mg/dL [facility] eGFR >59 >59 mL/min [facility] Specimen Blood Performing Organization Address City/State/ZIP Code P jeronmio Number [facility] [place] [address] [place] [address] documented in this encounter Visit Diagnoses Diagnosis Hypokalemia Hypopotassemia documented in this encounter Care Teams Start Date End Date Senior Hr Manager Relationship Specialty 01/21/17 Dorie Campos DO PCP - General Internal [address] [place] [address] [email or web address] 11/29/18 Frederick Bonner MD Orthopedics [address] [place] [id number] [email or web address] 10/26/19 Martina Szymanski MD Neurology [address] [place] [address] [email or web address] documented as of this encounter
--- OUTSIDE RECORDS SUMMARY | 2021-04-14 10:19 | XMS REPORT | Encounter Summary ---
Author Author [facility] Organization [facility] Address Unknown Phone Unavailable Care Team Providers Care Certified Marine Mechanic Name Role Phone Dorie Campos Erick DO PCP Frederick Bonner MD Unavailable Martina Szymanski MD Unavailable Shimon Paula MD Unavailable Encounter Details Care Team Description Date Type Department Link, Onbase 03/19/2021 OnBase Clinic [facility] Hospi judy Scan [address] [id number] [place], [place] [phone] Social History Date Tobacco Use Types Packs/Day [...] Date Type Specialty Bora Vital MD [address] [place], [place] [address] [email or web address] 04/25/2021 Office Visit Orthopedic Surgery 04/26/2021 Clinical Internal Medicine Support Giuliana Knowles, MORTAR WORKER [address] [place], [place] [phone] [email or web address] 07/26/2021 Office Visit Internal Medicine Rosalina Pyle MD [address] [place] [phone] [email or web address] 08/03/2021 Initial consult Neurology Dorie Campos DO [address] [place] [address] [email or web address] 01/29/2022 Office Visit Internal Medicine 01/29/2022 Imaging Radiology 01/29/2022 Imaging Radiology documented as of this encounter Goals Goal Patient Associated Recent Progress Patient-Stat Aut hor Goal Type Problems ed? Joint Replacement Surgery General Yes Mini Acuna cas, RN Note: Patient-stated Short Term Goal after Total Joint Replacement surgery: Decrease Pain Patient-stated Fci Goal for Total Joint Replacement surgery: better mobility Joint Replacement Surgery General Yes Vaughn Browning RN Note: Patient-stated Short Term Goal after Total Joint Replacement surgery: Decrease Pain, Increase Mobility and within 2-3 weeks be able to dress self without pain. Patient-stated Fci Goal for Total Joint Replacement surgery: within 3-6 months, be able to do clinical safety specialist and ADLs. documented as of this encounter Visit Diagnoses Not on filedocumented in this encounter Care Teams Start Date End Date Certified Marine Mechanic Relationship Specialty 01/21/17 Dorie Campos DO PCP - General Internal [address] [place], [place] [address] [email or web address] 11/29/18 Frederick Bonner MD Orthopedics [address] [place] [address] [email or web address] 10/26/19 Martina Szymanski MD Neurology [address] [place] [address] [email or web address] 03/01/21 Shimon Paula MD Neurology [address] [place] [address] documented as of this encounter
--- OUTSIDE RECORDS SUMMARY | 2021-04-14 10:19 | XMS REPORT | Encounter Summary ---
Author Author [facility] Address Unknown Phone Unavailable Care Team Providers Care Director Of Testing Name Role Phone Dorie Campos Erick DO PCP Frederick Bonner MD Unavailable Aaron Cohn MD Unavailable Shimon Paula MD Unavailable Reason for Visit * Reason Comments Other discuss previous testing Encounter Details Care Team Description Date Type Department Alejandra Lozano APRN [address] [place] [address] Essential hypertension (Primary Dx); Hypokalemia 03/20/2021 Office Visit Latrell Richard [facility] [address] [place] [address] Social History Date Tobacco Use Types Packs/Day [...] Comments Vital Sign 136/60 03/20/2021 1:22 PM BAGEL MAKER Blood Pressure 74 03/20/2021 1:22 PM BAGEL MAKER Pulse 36.3 C (97.3 F) 03/20/2021 1:22 PM BAGEL MAKER Temperature 14 03/20/2021 1:22 PM BAGEL MAKER Respiratory Rate 96% 03/20/2021 1:22 PM BAGEL MAKER Oxygen Saturation - - Inhaled Oxygen Concentration 64.3 kg (141 lb 12.8 oz) 03/20/2021 1:22 PM BAGEL MAKER Weight 149.9 cm (4' 11") 03/20/2021 1:22 PM BAGEL MAKER Height 28.64 03/20/2021 1:22 PM BAGEL MAKER Body Mass Index documented in this encounter Miscellaneous Notes * Assessment & Plan Note - Alejandra Lozano APRN - 03/20/2021 3:21 PM BAGEL MAKER Associated Problem(s): Hypokalemia BMP today We will call with results and further instructions as needed L MAKER * Assessment & Plan Note - Alejandra Lozano APRN - 03/20/2021 3:20 PM BAGEL MAKER Associated Problem(s): Essential hypertension Blood pressure stable with current treatment No changes today Will obtain BMP and call patient with results when available L MAKER * Patient Instructions - Alejandra Lozano APRN - 03/20/2021 1:00 PM BAGEL MAKER Please call with any questions or concerns Please call or return to clinic with any change or worsening of symptoms L MAKER * Progress Notes - Alejandra Lozano APRN - 03/20/2021 1:00 PM BAGEL MAKER [facility] [address] [place] [address] 03/20/2021 Physical Exam Patient: Tamanna Thomas : 1935 Primary Care Provider: Dorie Campos DO Chief Complaint Patient presents with Other discuss previous testing Tamanna Thomas is a 85 y.o. female who had concerns including Other ( discuss previous testing). She presents to the clinic today for a follow-up. She was admitted to [facility] on February 11, 2021 she was discharged on February 13, 2021. She wa s admitted for confusion and possible seizure-like activity per son's report. I t was noted on the discharge summary from [facility] that she was admitted for acute me tabolic encephalopathy likely due to dehydration. Since discharged she and her son report no issues of concern. She denies any increasing confusion, weakness. She is awaiting a neurology appointment to review her abnormal EEG report. The son does want to note that the patient as a child, did have an injury where she fell and hit her head. She has no other concerns today Patient Active Problem List Diagnosis Osteoarthritis of hip Prediabetes Primary osteoarthritis involving multiple joints Annual physical exam Osteopenia of neck of left femur Screening for breast cancer Essential hypertension Coronary artery disease involving rampart coronary artery of rampart heart wit hout angina pectoris Vitamin D [...] ecchymosis of abdominal wall, initial encounter Hypokalemia Past Medical History Past Medical History: Diagnosis Date Cataract removed Coronary artery disease YADY 04/26/2015 DVT (deep venous thrombosis) ([facility]) While taking hormones for menopause. Encounter for other specified special examinations [id number] - [facility]: Unstable angina. 99% RCA occlusion, stented by Fissha. 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 GERD (gastroesophageal reflux disease) Hearing loss Hyperlipidemia 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 Lumbosacral spondylosis without myelopathy Osteoarthritis Skin cancer Past surgical history Past Surgical History: Procedure Laterality Date APPENDECTOMY Appendectomy CHOLECYSTECTOMY CholecyStectomy EYE SURGERY Bilateral cataracts HYSTERECTOMY about 40 years ago JOINT REPLACEMENT Right 08/27/2016 RIGHT TOTAL HIP ARTHROPLASTY JOINT REPLACEMENT Left 03/16/2019 REVERSE LEFT TOTAL SHOULDER ARTHROPLASTY MRI LUMBAR SPINE W/WO CONTRAST 01/06/2007 - MRI of lUmbar Spine MRI PELVIS &RIGHT HIP 06/04/2016 [facility] MRI RIGHT HIP 04/11/2016 [facility] NEUROMUSCULAR JUNCTION TEST 08/25/2009 - EMG / bilateral Upper/[facility]/Aaron Cohn MD OTHER SURGICAL HISTORY Right 02/07/2020 RIGHT ELBOW BURSECTOMY OVARY REMOVAL 1 removed unsure which one and it was about 40 years ago. [place] RECONSTR TOTAL SHOULDER IMPLANT Left 03/16/2019 REVERSE LEFT TOTAL SHOULDER ARTHROPLASTY WITH NAVIGATION performed by [facility] Bon[facility] [place] REMOVAL OF ELBOW BURSA Right 02/07/2020 RIGHT ELBOW BURSECTOMY performed by [facility] Bonner MD [facility] Medications Outpatient Medications Marked as Taking for the 03/20/21 encounter (Office Visit ) with Alejandra Lozano APRN Medication Sig acetaminophen (TYLENOL) 500 MG tablet [...] Take 500 mg by mouth daily. Allergies Allergies Allergen Reactions Etodolac Diarrhea Nystatin Rash [...] Base Nausea Only GI distress Sulfamethoxazole Rash Family History Family History Problem Relation Age of Onset Other Other Mother - Cause of :Pneumonia Other Other Father - Cause of :CHF Breast cancer Maternal Grandmother Family Status Relation Name Status Mother at age 93 Father at age 82 Other (Not Specified) Other (Not Specified) MGM (Not Specified) Sister Brother Brother Brother Brother Sister Sister Sister Sister Sister Social History Social History Socioeconomic History Marital status: Spouse name: None Number of children: None Years of education: None Highest education level: None Occupational History None Tobacco Use Smoking status: Never Smoker Smokeless tobacco: Never Used Vaping Use Vaping Use: Never used Substance and Sexual Activity Alcohol use: No Comment: Alcoholic Drinks/day: Never Drug use: Never Sexual activity: Not Currently Partners: Male Other Topics Concern Caffeine Concern Yes Comment: / /day Seat Belt Not Asked Permanently Non-Ambulatory? Not Asked Social History Narrative None Social Determinants of Health Financial Resource Strain: Difficulty of Paying Living Expenses: Not on file Food Insecurity: Worried About Running Out of Food in the Last Year: Not on file Ran Out of Food in the Last Year: Not on file Transportation Needs: Lack of Transportation (Medical): Not on file Lack of Transportation (Non-Medical): Not on file Physical Activity: Days of Exercise per Week: Not on file Minutes of Exercise per Session: Not on file Stress: Feeling of Stress : Not on file Social Connections: Frequency of Communication with Friends and Family: Not on file Frequency of Social Gatherings with Friends and Family: Not on file Attends Anabaptism Services: Not on file Active Member of Clubs or Organizations: Not on file Attends Club or Organization Meetings: Not on file Marital Status: Not on file Intimate Partner Violence: Fear of Current or Ex-Partner: Not on file Emotionally Abused: Not on file Physically Abused: Not on file Sexually Abused: Not on file Immunizations Immunization History Administered Date(s) Administered INFLUENZA A&B TRIVALENT VAC ADJUVANTED PF (Adults=>65 y/o-FLUAD) 01/13/2017, 01/23/2018, 12/29/2018 INFLUENZA QUADRIVALENT ADJUVANTED (FLUAD-Adults=>65 y/o) 01/13/2020, 01/24/2021 Influenza IIV3 MDV (Multi-dose vial) 02/25/2014 Influenza TIV (HX thru Jan 18 2010) 02/12/2006, 02/19/2007, 02/26/2008, 10/2008 Pneumococcal Conjugate (13-valent) 11/24/2014 Pneumococcal Polysaccharide (23-valent) 01/06/2006 Td(adult) PFree,adsorbed 01/07/2008 Tdap 01/07/2008 Review of Systems Review of Systems Constitutional: Negative for activity change, appetite change, chills, fatigue a nd fever. Respiratory: Negative for cough, chest tightness, shortness of breath and wheezi ng. Cardiovascular: Negative for chest pain, palpitations and leg swelling. Gastrointestinal: Negative for abdominal pain. Musculoskeletal: Positive for gait problem ( Using motorized wheelchair). Skin: Negative for color change and pallor. Neurological: Negative for dizziness, light-headedness and headaches. Physical Exam Visit Vitals BP 136/60 (BP Location: Left arm, Patient Position: Sitting, Cuff Size: Large Ad ult) Pulse 74 Temp 97.3 F (36.3 C) (Temporal) Resp 14 Ht 4' 11" (1.499 m) Wt 141 lb 12.8 oz (64.3 kg) SpO2 96% BMI 28.64 kg/m Physical Exam Vitals and nursing note reviewed. Constitutional: General: She is not in acute distress. Appearance: Normal appearance. She is not ill-appearing, toxic-appearing or d iaphoretic. HENT: Head: Normocephalic and atraumatic. Eyes: Conjunctiva/sclera: Conjunctivae normal. Pupils: Pupils are equal, round, and reactive to light. Cardiovascular: Rate and Rhythm: Normal rate and regular rhythm. Pulses: Normal pulses. Heart sounds: Normal heart sounds. No murmur heard. Pulmonary: Effort: Pulmonary effort is normal. No respiratory distress. Breath sounds: Normal breath sounds. No wheezing. Abdominal: General: Bowel sounds are normal. There is no distension. Palpations: Abdomen is soft. Tenderness: There is no abdominal tenderness. Musculoskeletal: General: Normal range of motion. Cervical back: Normal range of motion and neck supple. Right lower leg: No edema. Left lower leg: No edema. Skin: General: Skin is warm and dry. Capillary Refill: Capillary refill takes less than 2 seconds. Coloration: Skin is not jaundiced or pale. Neurological: General: No focal deficit present. Mental Status: She is alert and oriented to person, place, and time. Gait: Gait abnormal. Psychiatric: Mood and Affect: Mood normal. Behavior: Behavior normal. Thought Content: Thought content normal. Judgment: Judgment normal. Assessment/Plan 1. Essential hypertension Assessment & Plan: Blood pressure stable with current treatment No changes today Will obtain BMP and call patient with results when available Orders: - Basic metabolic panel; Future 2. Hypokalemia Assessment & Plan: BMP today We will call with results and further instructions as needed Orders: - Basic metabolic panel; Future Plan and recommendations reviewed with patient. All issues were discussed and ad dressed. Patient verbalizes understanding and is agreeable to plan of care. Return in about 3 months (around 06/18/2021) for follow up with Dr. Campos or syeda pitts if needed. Alejandra Lozano APRN Electronically Signed 03/20/2021 3:23 PM Division of [facility] [email or web address] Page 9 of 9 L MAKER * Progress Notes - Nuvia Gallegos MA - 03/20/2021 1:00 PM BAGEL MAKER Patient presents for discussion on previous testing she has had done. Medications updated per protocol. L MAKER documented in this encounter Plan of Treatment Care Team Description Date Type Specialty Bora Vital MD [address] [address] [email or web address] 04/25/2021 Office Visit Orthopedic Surgery 04/26/2021 Clinical Internal Medicine Support Giuliana Knowles APRN [address] [place], [place] [phone] [email or web address] 07/26/2021 Office Visit Internal Medicine Rosalina Pyle MD [address] [id number] [email or web address] 08/03/2021 Initial consult Neurology Dorie Campos DO [address] [address] [email or web address] 01/29/2022 Office Visit Internal Medicine 01/29/2022 Imaging Radiology 01/29/2022 Imaging Radiology documented as of this encounter Goals Goal Patient Associated Recent Progress Patient-Stat Aut hor Goal Type Problems ed? Joint Replacement Surgery General Yes Mini Acuna cas, RN Note: Patient-stated Short Term Goal after Total Joint Replacement surgery: Decrease Pain Patient-stated Tobacco Wetter Goal for Total Joint Replacement surgery: better mobility Joint Replacement Surgery General Yes Vaughn Browning RN Note: Patient-stated Short Term Goal after Total Joint Replacement surgery: Decrease Pain, Increase Mobility and within 2-3 weeks be able to dress self without pain. Patient-stated Care Home Goal for Total Joint Replacement surgery: within 3-6 months, be able to do key maker and ADLs. documented as of this encounter Results * Basic metabolic panel (03/20/2021 2:04 PM BAGEL MAKER) Sodium 141 136 - 145 mmol/L [facility] Potassium 3.5 3.5 - 5.1 mmol/L [facility] Chloride 100 98 - 107 mmol/L [facility] CO2 37 (H) 21 - 32 mmol/L [facility] Anion Gap 4 [facility] Glucose 137 (H) 74 - 106 mg/dL [facility] Calcium 9.4 8.8 - 10.1 mg/dL [facility] BUN, Bld 20 (H) 7 - 18 mg/dL [facility] Creatinine 0.58 0.55 - 1.02 mg/dL [facility] eGFR >59 >59 mL/min [facility] Specimen Blood Performing Organization Address City/State/ZIP Code P jeronimo Number [facility] [address] [place] [address] documented in this encounter Visit Diagnoses Diagnosis Essential hypertension - Primary Unspecified essential hypertension Hypokalemia Hypopotassemia documented in this encounter Care Teams Start Date End Date Director Of Testing Relationship Specialty 01/21/17 Dorie Campos DO PCP - General Internal [address] [place] [address] [email or web address] 11/29/18 Frederick Bonner MD Orthopedics [address] [address] [email or web address] 10/26/19 Aaron Cohn MD Neurology [address] [facility] [place] [address] [email or web address] 03/01/21 Shimon Paula MD Neurology [address] [place], [place] [phone] documented as of this encounter
--- OUTSIDE RECORDS SUMMARY | 2021-04-14 10:19 | XMS REPORT | Encounter Summary ---
Author Author [facility] Address Unknown Phone Unavailable Care Team Providers Care Casino Attendant Name Role Phone Dorie Campos DO PCP Frederick Bonner MD Unavailable Martina Szymanski MD Unavailable Reason for Visit * Reason Onset Date Comments Medication Refill 02/19/2021 Encounter Details Care Team Description Date Type Department Doire Campos DO [address] [address] [email or web address] Medication Refill 02/19/2021 Refill Cotton O`Anjum [facility] [place] [address] [place] [phone] Social History Date Tobacco Use Types Packs/Day [...] encounter Miscellaneous Notes * Telephone Encounter - More Miller, RN - 02/19/2021 3:16 PM CDT Family and patient calling in to see if she can get this filled for hip pain. Re prots it does help take the edge off. Requested Prescriptions Pending Prescriptions Disp Refills acetaminophen-codeine (TYLENOL #3) 300-30 MG per tablet 30 tablet 0 Sig: Take 1 tablet by mouth every 6 (six) hours as needed for Moderate Pain. Last Physical: 01/24/21 Last Office Visit: 01/24/21 Next Office Visit: 02/20/21 Pertinent Labs: Per Refill Standing Orders medication(s) routed to provider for review . documented in this encounter Plan of Treatment Care Team Description Date Type Specialty Bora Vital MD [address] [address] [email or web address] 04/25/2021 Office Visit Orthopedic Surgery 04/26/2021 Clinical Internal Medicine Support Giuliana Knowles, INSURANCE COUNSELOR [address] [place], [place] [address] [email or web address] 07/26/2021 Office Visit Internal Medicine Rosalina Pyle MD [address] [address] [email or web address] 08/03/2021 Initial consult Neurology Dorie Campos, DO [address] [place] [address] [email or web address] 01/29/2022 Office Visit Internal Medicine 01/29/2022 Imaging Radiology 01/29/2022 Imaging Radiology documented as of this encounter Goals Goal Patient Associated Recent Progress Patient-Stat Aut hor Goal Type Problems ed? Joint Replacement Surgery General Yes Mini Acuna cas RN Note: Patient-stated Short Term Goal after Total Joint Replacement surgery: Decrease Pain Patient-stated Fpc Goal for Total Joint Replacement surgery: better mobility Joint Replacement Surgery General Yes Vaughn Browning, RN Note: Patient-stated Short Term Goal after Total Joint Replacement surgery: Decrease Pain, Increase Mobility and within 2-3 weeks be able to dress self without pain. Patient-stated Vp Corporate Development Goal for Total Joint Replacement surgery: within 3-6 months, be able to do testing consultant and ADLs. documented as of this encounter Visit Diagnoses Diagnosis DDD (degenerative disc disease), lumbar Degeneration of lumbar or lumbosacral i ntervertebral disc documented in this encounter Care Teams Start Date End Date Casino Attendant Relationship Specialty 01/21/17 Dorie Campos DO PCP - General Internal [address] [facility] [address] [place] [address] [email or web address] 11/29/18 Frederick Bonner MD Orthopedics [address] [address] [email or web address] 10/26/19 Martina Szymanski MD Neurology [address] [place], [place] [address] [email or web address] documented as of this encounter
--- OUTSIDE RECORDS SUMMARY | 2021-04-14 10:19 | XMS REPORT | Encounter Summary ---
Author Author [facility] Address Unknown Phone Unavailable Care Team Providers Care Inspector Final Assembly Electrical Name Role Phone Dorie Campos DO PCP Frederick Bonner MD Unavailable Martina Szymanski MD Unavailable Shimon Paula MD Unavailable Encounter Details Care Team Description Date Type Department Jakub Rothman MD [address] [place] [address] [email or web address] Seizures (HCC) 03/02/2021 Chart Note Latrell Kimble Neuro logy [address] [place] [address] Social History Date Tobacco Use Types Packs/Day [...] as of this encounter Miscellaneous Notes * Procedures - Jakub Rothman MD - 03/02/2021 8:13 AM INTERIOR PANELER Associated Order(s): EEG Pre-Procedure Diagnose(s): Syncope, unspecified syncope type; Seizure (HCC) LATRELL KIMBLE NEUROLOGY [address] [facility] [address] 03/02/2021 Electroencephalogram (EEG) Report Patient: Tamanna Thomas : 1935 Primary Care Provider: Dorie Campos DO Referring Provider: No ref. provider found Test #: Cut Off Machine Helper: ANTONIO Instrument: Technical data obtained at [facility] Patient State: A&O Last Meal: 10:30 am Handedness: right handed Medications: has a current medication list which includes the following prescription(s): acet aminophen, acetaminophen-codeine, alum hydroxide-mag trisilicate, atorvastatin, b complex vitamins, calcium-vitamin d-vitamin k, carvedilol, chlorhexidine, clob etasol, clopidogrel, diclofenac, fenofibrate, hydrochlorothiazide, ibuprofen, li sinopril, multivitamin w/minerals, pantoprazole, tramadol, trolamine salicylate, and vitamin c. Diagnosis: Syncope and seizure History: Patient presented to [facility] on 02/11/2021 due to de paz e in mental status. According to her son, the patient woke up at 8 am that day, when she came to the family room, her words were not correct and somewhat slurre d. She was having difficulty with word finding. She was not noted to have any ex tremity weakness or loss of movement. Her symptoms progressed to the point where she needed to sit in the chair then curled up In a ball and started to have sh aking type movement. Son thought it was seizure activity. After the event, the p atient was confused and somewhat somnolent. She was slightly confused in the ER after [facility] brought her in. She denies any cough, SOB, Fever, chills, nausea, vomi ting, or diarrhea Activations: Photic , HV, Awake. During Photic patient had rhythmic head moveme nt to the flashing light on frequency 17 and 21. CC: Dorie Campos DO, No ref. provider found DESCRIPTION: This is a 25 minute EEG using the international 10-20 system of el ectrode placement. Cup electrodes were applied by paste with impedences of < 5 kOhms. Physiologic monitoring included 2 channels of electro-oculogram and a rhythm strip (to help identify artifact on the EEG). Video recording was avail able for this EEG. During the quiet, wake state the dominant feature was 7 hz o ccipital dominant theta, with low amplitude faster activity anteriorly. With ph otic stimulation there is prominent occipital theta at the appropriate frequenci es. The rhythm strip shows rare lower amplitude supraventricular beats. But th e EKG channel eventually becomes artifact contaminated. She does not appear to fall asleep. There are occasional phase reversing transients in T3, and T4, and in C3. These have symmetric rising and falling phases and are without slow wav es. IMPRESSION: This is an abnormal EEG due to mild slowing of the background activi ty. There are no definite focal, lateral, or epileptiform abnormalities. There were a number of phase reversing transients over either central temporal region, but these had a symmetric rise and fall and did not have after coming slow wav es. They are likely not interictal discharges. Clinical correlation is recomme nded Jakub Rothman MD RIOR PANELER documented in this encounter Plan of Treatment Care Team Description Date Type Specialty Bora Vital MD [address] [address] [email or web address] 04/25/2021 Office Visit Orthopedic Surgery 04/26/2021 Clinical Internal Medicine Support Giuliana Knowles, PROFESSIONAL DEVELOPMENT INSTRUCTOR [address] [place] [address] [email or web address] 07/26/2021 Office Visit Internal Medicine Rosalina Pyle MD [address] [id number] [email or web address] 08/03/2021 Initial consult Neurology Dorie Campos DO [address] [place], [place] [address] [email or web address] 01/29/2022 Office Visit Internal Medicine 01/29/2022 Imaging Radiology 01/29/2022 Imaging Radiology documented as of this encounter Goals Goal Patient Associated Recent Progress Patient-Stat Aut hor Goal Type Problems ed? Joint Replacement Surgery General Yes Mini Acuna cas, RN Note: Patient-stated Short Term Goal after Total Joint Replacement surgery: Decrease Pain Patient-stated Care Home Goal for Total Joint Replacement surgery: better mobility Joint Replacement Surgery General Yes Vaughn Browning, RN Note: Patient-stated Short Term Goal after Total Joint Replacement surgery: Decrease Pain, Increase Mobility and within 2-3 weeks be able to dress self without pain. 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 documented as of this encounter Procedures Comments Procedure Name Priority Date/Time Associated Diag nosis EEG Routine 03/02/2021 Syncope, unspec ified 8:13 AM INTERIOR PANELER syncope type Seizure (HCC) documented in this encounter Visit Diagnoses Diagnosis Seizures (HCC) Other convulsions documented in this encounter Care Teams Start Date End Date Inspector Final Assembly Electrical Relationship Specialty 01/21/17 Dorie Campos DO PCP - General Internal [address] [address] [email or web address] 11/29/18 Frederick Bonner MD Orthopedics [address] [id number] [email or web address] 10/26/19 Martina Szymanski MD Neurology [address] [place], [place] [address] [email or web address] 03/01/21 Shimon Paula MD Neurology [address] [place] [address] documented as of this encounter
--- OUTSIDE RECORDS SUMMARY | 2021-04-14 10:19 | XMS REPORT | Encounter Summary ---
Author Author [facility] Organization [facility] Address Unknown Phone Unavailable Care Team Providers Care Drafter Automotive Design Layout Name Role Phone Dorie Campos Erick DO PCP Frederick Bonner MD Unavailable Martina Szymanski MD Unavailable Shimon Paula MD Unavailable Encounter Details Care Team Description Date Type Department Link, Onbase 03/09/2021 OnBase Clinic [facility] Hos[facility] judy Scan [id number] [place], [place] [id number] Social History Date Tobacco Use Types Packs/Day [...] Specialty Bora Vital MD [address] [place], [place] [address] [email or web address] 04/25/2021 Office Visit Orthopedic Surgery 04/26/2021 Clinical Internal Medicine Support Giuliana Knowles, PEN TESTER [address] [place], [place] [address] [email or web address] 07/26/2021 Office Visit Internal Medicine Rosalina Pyle MD [address] [place] [id number] 08/03/2021 Initial consult Neurology Dorie Campos DO [address] [place] [address] 01/29/2022 Office Visit Internal Medicine 01/29/2022 Imaging Radiology 01/29/2022 Imaging Radiology documented as of this encounter Goals Goal Patient Associated Recent Progress Patient-Stat Aut hor Goal Type Problems ed? Joint Replacement Surgery General Yes Mini Acuna cas, RN Note: Patient-stated Short Term Goal after Total Joint Replacement surgery: Decrease Pain Patient-stated Intermediate Goal for Total Joint Replacement surgery: better mobility Joint Replacement Surgery General Yes Vaughn Browning RN Note: Patient-stated Short Term Goal after Total Joint Replacement surgery: Decrease Pain, Increase Mobility and within 2-3 weeks be able to dress self without pain. 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 documented as of this encounter Visit Diagnoses Not on filedocumented in this encounter Care Teams Start Date End Date Drafter Automotive Design Layout Relationship Specialty 01/21/17 Dorie Campos DO PCP - General Internal [address] [place], [place] [address] 11/29/18 Frederick Bonner MD Orthopedics [address] [place] [address] 10/26/19 Martina Szymanski MD Neurology [address] [place] [address] [email or web address] 03/01/21 Shimon Paula MD Neurology [address] [place] [address] documented as of this encounter
--- OUTSIDE RECORDS SUMMARY | 2021-04-14 10:19 | XMS REPORT | Encounter Summary ---
Author Author [facility] Address Unknown Phone Unavailable Care Team Providers Care Field Irrigation Worker Name Role Phone Dorie Campos DO PCP Frederick Bonner MD Unavailable Martina Szymanski MD Unavailable Reason for Visit * Reason Comments Other form 485 Encounter Details Care Team Description Date Type Department Dorie Campos DO [address] [facility] [address] [place] [address] [email or web address] Neck pain, chronic; Coronary artery disease involving [place] coronary artery of [place] heart without angina pectoris; Primary osteoarthritis of left shoulder; Need for home health care 02/13/2021 Treatment Latrell Castro`Anjum [facility] [address] [place] [address] Social History Date Tobacco Use Types Packs/Day [...] encounter Miscellaneous Notes * Progress Notes - Natalie [place] LPN - 02/13/2021 4:44 PM CDT Home Health Certification and Plan of Home 02-10-21 to 04-10-21) documented in this encounter Plan of Treatment Care Team Description Date Type Specialty Bora Vital MD [address] [phone] [email or web address] 04/25/2021 Office Visit Orthopedic Surgery 04/26/2021 Clinical Internal Medicine Support Benson Tierra Rosegy, TIP PRINTER [address] [place], [place] [phone] [email or web address] 07/26/2021 Office Visit Internal Medicine Rosalina Pyle MD [address] [address] [email or web address] 08/03/2021 Initial consult Neurology Droie Campos, DO [address] [place] [address] [email or web address] 01/29/2022 Office Visit Internal Medicine 01/29/2022 Imaging Radiology 01/29/2022 Imaging Radiology documented as of this encounter Goals Goal Patient Associated Recent Progress Patient-Stat Aut hor Goal Type Problems ed? Joint Replacement Surgery General Yes Mini Acuna cas, RN Note: Patient-stated Short Term Goal after Total Joint Replacement surgery: Decrease Pain Patient-stated Helicopter Pilot Instructor Goal for Total Joint Replacement surgery: better mobility Joint Replacement Surgery General Yes Vaughn Browning, RN Note: Patient-stated Short Term Goal after Total Joint Replacement surgery: Decrease Pain, Increase Mobility and within 2-3 weeks be able to dress self without pain. Patient-stated Helicopter Pilot Instructor Goal for Total Joint Replacement surgery: within 3-6 months, be able to do control room supervisor and ADLs. documented as of this encounter Visit Diagnoses Diagnosis Neck pain, chronic Cervicalgia Coronary artery disease involving nativ e coronary artery of [place] heart without angina pectoris Primary osteoarthritis of left shoulder Primary localized osteoarthrosis, shoul veronica region Need for home health care No other household member able to rende r care documented in this encounter Care Teams Start Date End Date Field Irrigation Worker Relationship Specialty 01/21/17 Dorie Campos DO PCP - General Internal [address] [facility] [address] [place] [address] [email or web address] 11/29/18 Frederick Bonner MD Orthopedics [address] [place] [address] [email or web address] 10/26/19 Martina Szymanski MD Neurology [address] [place] [address] [email or web address] documented as of this encounter
--- OUTSIDE RECORDS SUMMARY | 2021-04-14 10:19 | XMS REPORT | Encounter Summary ---
Author Author [facility] Address Unknown Phone Unavailable Care Team Providers Care Wire Temperer Name Role Phone Dorie Campos DO PCP Frederick Bonner MD Unavailable Martina Szymanski MD Unavailable Reason for Referral * Imaging Prior Auth (Routine) - Authorized Diagnoses / Procedures Referred By [facility] Pulmonary nodule Procedures CT Chest (without contrast) Dorie Campos DO [address] [place] [address] [facility] Radiology [address] [place] [address] Radiology Referral ID Status Reason Start Date Expiration Visits Vi sits Date Requested Authorized [id number] Authorized Specialty Services 02/13/2021 02/13/2022 1 1 Required Encounter Details Care Team Description Date Type Department Dorie Campos DO [address] [place] [phone] [email or web address] Pulmonary nodule (Primary Dx) 02/13/2021 Orders Only Latrell Castro`Anjum Famil [facility] - [address] [place] [id number] Social History Date Tobacco Use Types Packs/Day [...] Date Type Specialty Bora Vital MD [address] [phone] [email or web address] 04/25/2021 Office Visit Orthopedic Surgery 04/26/2021 Clinical Internal Medicine Support Giuliana Knowles, KIER DRIER [address] [place], [place] [address] [email or web address] 07/26/2021 Office Visit Internal Medicine Rosalina Pyle MD [address] [phone] [email or web address] 08/03/2021 Initial consult Neurology Dorie Campos, DO [address] [place], [place] [address] [email or web address] 01/29/2022 Office Visit Internal Medicine 01/29/2022 Imaging Radiology 01/29/2022 Imaging Radiology Order Schedule Name Type Priority Associated Diag noses Expected: 02/13/2022, Expires: 2 CT Chest (without Imaging Routine Pulmonary no dule contrast) documented as of this encounter Goals Goal [...] able to dress self without pain. Patient-stated Culinary Chef Goal for Total Joint Replacement surgery: within 3-6 months, be able to do precision optics technician and ADLs. documented as of this encounter Visit Diagnoses Diagnosis Pulmonary nodule - Primary Solitary pulmonary nodule documented in this encounter Care Teams Start Date End Date Wire Temperer Relationship Specialty 01/21/17 Dorie Campos DO PCP - General Internal [address] [address] [email or web address] 11/29/18 Frederick Bonner MD Orthopedics [address] [place] [address] [email or web address] 10/26/19 Martina Szymanski MD Neurology [address] [place] [address] [email or web address] documented as of this encounter
--- OUTSIDE RECORDS SUMMARY | 2021-04-14 10:19 | XMS REPORT | Encounter Summary ---
Author Author [facility] Organization [facility] Address Unknown Phone Unavailable Care Team Providers Care Billet Recorder Name Role Phone Dorie Campos DO PCP Frederick Bonner MD Unavailable Martina Szymanski MD Unavailable Shimon Paula MD Unavailable Encounter Details Care Team Description Date Type Department Link, Onbase 02/21/2021 Orders Only [facility] [place] [facility] judy [address] [id number] [place], [place] [phone] Social History Date Tobacco Use Types Packs/Day [...] Specialty Bora Vital MD [address] [place] [address] [email or web address] 04/25/2021 Office Visit Orthopedic Surgery 04/26/2021 Clinical Internal Medicine Support Giuliana Knowles, WARDSPERSON [address] [place], [place] [phone] [email or web address] 07/26/2021 Office Visit Internal Medicine Rosalina Pyle MD [address] [address] 08/03/2021 Initial consult Neurology Dorie Campos DO [address] [place] [address] 01/29/2022 Office Visit Internal Medicine 01/29/2022 Imaging Radiology 01/29/2022 Imaging Radiology Date/Time Name Type Priority Associated Diag noses 02/12/2021 12:00 AM CDT HM EXTERNAL XRAY Imaging 02/11/2021 12:00 AM CDT HM EXTERNAL MRI Imaging 02/11/2021 12:00 AM CDT HM EXTERNAL CT SCAN Imaging 08/21/2017 12:00 AM CDT HM ECHOCARDIOGRAM Cardiac Services documented as of this encounter Goals Goal Patient Associated Recent Progress Patient-Stat Aut hor Goal Type Problems ed? Joint Replacement Surgery General Yes Mini Acuna cas, RN Note: Patient-stated Short Term Goal after Total Joint Replacement surgery: Decrease Pain Patient-stated Assistant County Attorney Goal for Total Joint Replacement surgery: better mobility Joint Replacement Surgery General Yes Vaughn Browning, RN Note: Patient-stated Short Term Goal after Total Joint Replacement surgery: Decrease Pain, Increase Mobility and within 2-3 weeks be able to dress self without pain. 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 documented as of this encounter Procedures Comments Procedure Name Priority Date/Time Associated Diag nosis HM EXTERNAL XRAY 02/12/2021 12:00 AM CDT HM EXTERNAL CT SCAN 02/11/2021 12:00 AM CDT HM EXTERNAL MRI 02/11/2021 12:00 AM CDT HM ECHOCARDIOGRAM 08/21/2017 12:00 AM CDT documented in this encounter Visit Diagnoses Not on filedocumented in this encounter Care Teams Start Date End Date Billet Recorder Relationship Specialty 01/21/17 Dorie Campos DO PCP - General Internal [address] Medicine [place], [place] [address] [email or web address] 11/29/18 Frederick Bonner MD Orthopedics [address] [address] [email or web address] 10/26/19 Martina Szymanski MD Neurology [address] [place], [place] [phone] [email or web address] 03/01/21 Shimon Paula MD Neurology [address] [place] [phone] documented as of this encounter
--- OUTSIDE RECORDS SUMMARY | 2021-04-14 10:19 | XMS REPORT | Encounter Summary ---
Author Author [facility] Address Unknown Phone Unavailable Care Team Providers Care Asphalt Machine Operator Name Role Phone NeeruDorie washington Erick DO PCP Frederick Bonner MD Unavailable Martina Szymanski MD Unavailable Reason for Visit * Reason Onset Date Comments TCM 02/14/2021 Encounter Details Care Team Description Date Type Department Lsia Watters RN 02/14/2021 Transitional [facility] Care Care Management Management (TCM) [address] [place] [address] Social History Date Tobacco Use Types Packs/Day [...] encounter Miscellaneous Notes * Progress Notes - Lisa Watters, RN - 02/14/2021 10:50 AM CDT 02/14/21 0000 Transitional Care Management Admission date 02/11/21 Discharge date 02/13/21 Date interactive contact was made to patient or caregiver 02/14/21 Do you have questions about your home instructions? No Were you able to fill and medicinal plant picker all of your prescriptions? Not applicable Do you have questions about your medication instructions? No Do you know when your follow up appointment is? Yes Do you have transportation to your appointment? Yes Do you need anything between now and your scheduled appointment? No Medications reviewed with patient and correct dose is in the chart? Patient decl ined Care Team updated & specialists added as needed? Yes 2 call attempts were made but I did NOT reach the patient Not Applicable Reviewed Survey Participation? No Referral to Not applicable Where was the patient discharged from? [facility] Patient reports that she is doing very well, she is happy to be home from [facility] where she was admitted and treated for dehydration. Patient reports that her fa bigg is feeding her very well and that she is making sure she is drinking as wel l. Patient does have [facility] that is to be restarted. Patient denies any additional needs at this time and she has family staying there with her silvana t now. documented in this encounter Plan of Treatment Care Team Description Date Type Specialty Bora Vital MD [address] [id number] [email or web address] 04/25/2021 Office Visit Orthopedic Surgery 04/26/2021 Clinical Internal Medicine Support Giuliana Knowles, WINDOW TREATMENT INSTALLER [address] [place], [place] [id number] [email or web address] 07/26/2021 Office Visit Internal Medicine Rosalina Pyle MD [address] [id number] [email or web address] 08/03/2021 Initial consult Neurology Dorie Campos DO [address] [place], [place] [id number] 01/29/2022 Office Visit Internal Medicine 01/29/2022 Imaging Radiology 01/29/2022 Imaging Radiology documented as of this encounter Goals Goal Patient Associated Recent Progress Patient-Stat Aut hor Goal Type Problems ed? Joint Replacement Surgery General Yes Mini Acuna cas, RN Note: Patient-stated Short Term Goal after Total Joint Replacement surgery: Decrease Pain Patient-stated Adult Probation Officer Goal for Total Joint Replacement surgery: better mobility Joint Replacement Surgery General Yes Vaughn Browning, RN Note: Patient-stated Short Term Goal after Total Joint Replacement surgery: Decrease Pain, Increase Mobility and within 2-3 weeks be able to dress self without pain. 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 documented as of this encounter Visit Diagnoses Not on filedocumented in this encounter Care Teams Start Date End Date Asphalt Machine Operator Relationship Specialty 01/21/17 Dorie Campos DO PCP - General Internal [address] [id number] [email or web address] 11/29/18 Frederick Bonner MD Orthopedics [address] [place] [id number] [email or web address] 10/26/19 Martina Szymanski MD Neurology [address] [place], [place] [id number] [email or web address] documented as of this encounter
--- OUTSIDE RECORDS SUMMARY | 2021-04-14 10:20 | XMS REPORT ---
Author Author Tamanna Power Organization Unknown Address [address] [place] [phone] Phone Care Team Providers Care Collection Officer Name Role Phone Mary Power Unavailable Priscila Fritz NP Unavailable Dorie Campos PCP Unavailable Assessments Description Da te Peripheral vascular disease 03/08/21 Callosity 03/08/21 Onychomycosis 03/08/21 Onychogryposis 03/08/21 Bilateral acquired claw toe 03/08/21 Vitamin deficiency 03/08/21 Generalized atherosclerosis 03/08/21 Difficulty walking 03/08/21 Get up and go test - abnormal 03/08/21 Assessment Notes: Fall risk assessment (12519-1) Fall Risk Assessment: High Get Up and Go test 03/08/2021, score = 5, walks with a cane.Flu Vaccine Giving encouragement to exercise Documentation of current medications Smoking cessation education confirmed nonsmoker Reason(s) for Visit Peripheral vascular disease Callosity Onychomycosis Onychogryposis Bilateral acquired claw toe Vitamin deficiency Generalized atherosclerosis Difficulty walking Get up and go test - abnormal * Assessment Notes: Fall risk assessment (13074-6) Fall Risk Assessment: High Get Up and Go test 03/08/2021, score = 5, walks with a cane.Flu Vaccine Giving encouragement to exercise Documentation of current medications Smoking cessation education confirmed nonsmoker Instructions Peripheral vascular disease Callosity Onychomycosis Onychogryposis Bilateral acquired claw toe Vitamin deficiency Generalized atherosclerosis Difficulty walking Get up and go test - abnormal * Plan Discussion: An additional 15 minutes was used to educate the patient on the below subjects.P atient to continue to receive regular routine foot care in order that her feet enable her to maintain independent mobility. Patient to continue to walk carefully, using mobility device(s) as needed, exercise routinely, wear supportive footwear, and perhaps take balance classes for seniors, as well as maintaining safe environment and asking for help as needed. Patient also to take care of feet and legs via measures such as daily lotion and Vicks Vapo Rub to toenails, and vinegar soaks twice weekly. * Plan Instructions: Get long-fibered bath mat to work toes through after bath or shower to help dry between toes, then hang bath mat up to dry. Don't go barefoot. Test bath/shower water with your hand, not your foot. Examine your feet daily. Apply lotion daily. Call if needed before next routine foot care appointment if any specific issues.e out shoes before putting them on. * Plan Notes: Routine foot care every 63 days. Allergies and Adverse Reactions Description Re action Severity Date Status bextra Unknown Unknown undefi mark active clindamycin Un known Unknown undefi mark active doxycycline Un known Unknown undefi mark active etodolac Unkno wn Unknown undefi mark active levofloxacin U nknown Unknown undefi mark active Neosporin Unkn own Unknown undefi mark active nystatin Break ing out Unknown undefi mark active penicillin swe lling at injection site Unknown undefined acti ve Polysporin Unk nown Unknown undefi mark active sulfa drug Unk nown Unknown undefi mark active terbinafine sh akiness, stomach pain Unknown undefined acti ve diclofenac Unk nown Unknown undefi mark active Current Medications Description Da te Status Calcium 600+D Plus Minerals oral tablet, chewable 06/02/17 Acti ve Instructions: 2 or 3 Tablet( s) orally 1 times a day Quantity: 0; Refills: undefined Route: OTHER: oral Coreg 3.125 mg oral tablet 06/02/17 Active Instructions: 1 Tablet(s) or ally 2 times a day Quantity: 0; Refills: undefined Route: OTHER: oral hydroCHLOROthiazide 25 mg oral tablet 06/02/17 Active Instructions: 1 Tablet(s) or ally 1 times a day Quantity: 0; Refills: undefined Route: OTHER: oral ibuprofen 200 mg oral tablet 06/02/17 Active Instructions: 1 Tablet(s) or ally as needed for pain Quantity: 0; Refills: undefined Route: OTHER: oral pantoprazole 40 mg oral delayed release tablet 06/02/17 Acti ve Instructions: 1 Tablet(s) or ally 1 times a day Quantity: 0; Refills: undefined Route: OTHER: oral Plavix 75 mg oral tablet 06/02/17 Active Instructions: 1 Tablet(s) or ally 1 times a day Quantity: 0; Refills: undefined Route: OTHER: oral TriCor 145 mg oral tablet 06/02/17 Active Instructions: 1 Tablet(s) or ally 1 times a day Quantity: 0; Refills: undefined Route: OTHER: oral lisinopril 5 mg oral tablet 06/02/17 Active Instructions: 0.5 Tablet(s) orally 1 times a day Quantity: 0; Refills: undefined Route: OTHER: oral CHLORHEX GLU 0.12% RACHAEL 07/14/19 Active Instructions: RINSE WITH 15M L FOR 30 SECONDS AND SPIT USE TWICE DAILY AFTER BRUSHING AND FLOSSING . Quantity: 0; Refills: undefined Route: OTHER: PREGABALIN 25MG CAP 06/06/20 Active Instructions: TAKE 1 CAPSULE BY MOUTH TWICE DAILY Quantity: 0; Refills: undefined Route: OTHER: TRAMADOL 50MG TAB 06/23/20 Active Instructions: TAKE 1 TABLET BY MOUTH TWICE DAILY NEEDED FOR MODERATE PAIN Quantity: 0; Refills: undefined Route: OTHER: Diagnostic Results Other Results Date Descripti on Value Flags 03/08/21 Fall Risk Assessment High Abnormal 01/04/21 Fall Risk Assessment High Abnormal 11/02/20 Fall Risk Assessment High Abnormal 08/31/20 Fall Risk Assessment High Abnormal 06/29/20 Fall Risk Assessment High Abnormal 04/27/20 Fall Risk Assessment High Abnormal 01/13/20 Fall Risk Assessment High Abnormal 01/06/20 Fall Risk Assessment High Abnormal 09/30/19 Fall Risk Assessment High Abnormal 05/13/19 Fall Risk Assessment High Abnormal 03/04/19 Fall Risk Assessment High Abnormal 12/31/18 Fall Risk Assessment High Abnormal 10/29/18 Fall Risk Assessment High Abnormal 08/20/18 Fall Risk Assessment High Abnormal 06/18/18 Fall Risk Assessment High Abnormal 03/19/18 Fall Risk Assessment High Abnormal 01/08/18 Fall Risk Assessment High Abnormal 07/31/17 Fall Risk Assessment High Abnormal 05/29/17 Fall Risk Assessment High Abnormal 02/27/17 Fall Risk Assessment High Abnormal Problems Description Da te Status Pain in left leg 11/16/15 active Pain in right leg 11/16/15 active Vertigo 11/16/15 active Wears glasses 11/16/15 active Osteoarthritis 11/16/15 active Difficulty walking on the flat 11/16/15 acti ve Essential hypertension 11/16/15 acti ve Hyperlipidemia 11/16/15 active Seizure 11/16/15 active History of placement of stent for alfonso ry artery disease 11/23/15 active Coronary atherosclerosis 11/23/15 acti ve H/O: anticoagulant therapy 11/23/15 acti ve Generalized atherosclerosis 11/23/15 acti ve Peripheral vascular disease 06/20/16 acti ve Onychomycosis 06/20/16 active Corns and callus 06/20/16 active Pain in toe 10/24/16 active Onycholysis 12/26/16 active Walking disability 05/29/17 active Onychogryposis 05/29/17 active Peripheral neuropathy - hereditary or id iopathic 07/31/17 active Vitamin deficiency 07/31/17 active Callosity 07/31/17 active Idiopathic peripheral neuropathy 01/08/18 acti ve Peripheral vascular disease 12/26/16 acti ve Idiopathic peripheral neuropathy 06/18/18 acti ve Get up and go test - abnormal 12/31/18 acti ve Difficulty walking 12/31/18 active Influenza vaccination given 12/31/18 acti ve Callosity 01/13/20 active Bilateral acquired claw toe 01/13/20 acti ve Procedures Description Da te Status Debridement of nails 6-10 Translation: Patient encounter procedure 03/19/18 completed Callus Single Translation: Patient encounter procedure 03/19/18 completed Get up and GO 03/08/21 completed Callus 5 or more Translation: Patient encounter procedure 03/08/21 completed Debridement of nails 6-10 Translation: Patient encounter procedure 03/08/21 completed Debridement of nails 6-10 Translation: Patient encounter procedure 03/04/19 completed Callus 5 or more Translation: Patient encounter procedure 03/04/19 completed Callus 2-4 Translation: Patient encounter procedure 02/27/17 completed Debridement of nails 6-10 Translation: Patient encounter procedure 02/27/17 completed Debridement of nails 6-10 Translation: Patient encounter procedure 01/25/16 completed Callus 2-4 Translation: Patient encounter procedure 01/25/16 completed Nail Avulsion Translation: Patient encounter procedure 01/25/16 completed Get up and GO 01/13/20 completed Callus Single Translation: Patient encounter procedure 01/13/20 completed Callus 5 or more Translation: Patient encounter procedure 01/08/18 completed Debridement of nails 6-10 Translation: Patient encounter procedure 01/08/18 completed Debridement of nails 6-10 Translation: Patient encounter procedure 01/06/20 completed Nail Avulsion Translation: Patient encounter procedure 01/06/20 completed Callus 5 or more Translation: Patient encounter procedure 01/06/20 completed Callus 5 or more Translation: Patient encounter procedure 01/04/21 completed Debridement of nails 6-10 Translation: Patient encounter procedure 01/04/21 completed Debridement of nails 6-10 Translation: Patient encounter procedure 12/31/18 completed Administration of Vaccine 12/31/18 completed Callus 5 or more Translation: Patient encounter procedure 12/31/18 completed Fluzone HD Quadrivalent (65+) Translation: Consent given for pneumococcal vaccine 12/31/18 completed Get up and GO 12/31/18 completed Callus 2-4 Translation: Patient encounter procedure 12/26/16 completed Nail Avulsion Translation: Patient encounter procedure 12/26/16 completed Debridement of nails 6-10 Translation: Patient encounter procedure 12/26/16 completed Debridement of nails 6-10 Translation: Patient encounter procedure 11/23/15 completed Callus Single Translation: Patient encounter procedure 11/23/15 completed Callus 5 or more Translation: Patient encounter procedure 11/02/20 completed Debridement of nails 6-10 Translation: Patient encounter procedure 11/02/20 completed Debridement of nails 6-10 Translation: Patient encounter procedure 10/29/18 completed Callus 5 or more Translation: Patient encounter procedure 10/29/18 completed Callus Single Translation: Patient encounter procedure 10/24/16 completed Debridement of nails 6-10 Translation: Patient encounter procedure 10/24/16 completed Debridement of nails 6-10 Translation: Patient encounter procedure 09/30/19 completed Callus 5 or more Translation: Patient encounter procedure 09/30/19 completed Callus 5 or more Translation: Patient encounter procedure 08/31/20 completed Debridement of nails 6-10 Translation: Patient encounter procedure 08/31/20 completed Debridement of nails 6-10 Translation: Patient encounter procedure 08/20/18 completed Callus Single Translation: Patient encounter procedure 08/20/18 completed Callus 5 or more Translation: Patient encounter procedure 07/31/17 completed Debridement of nails 6-10 Translation: Patient encounter procedure 07/31/17 completed Nail Avulsion Translation: Patient encounter procedure 07/31/17 completed Debridement of nails 6-10 Translation: Patient encounter procedure 06/29/20 completed Callus 5 or more Translation: Patient encounter procedure 06/29/20 completed Callus Single Translation: Patient encounter procedure 06/20/16 completed Debridement of nails 6-10 Translation: Patient encounter procedure 06/20/16 completed Nail Avulsion Translation: Patient encounter procedure 06/18/18 completed Debridement of nails 6-10 Translation: Patient encounter procedure 06/18/18 completed Callus Single Translation: Patient encounter procedure 06/18/18 completed Callus 5 or more Translation: Patient encounter procedure 05/29/17 completed Debridement of nails 6-10 Translation: Patient encounter procedure 05/29/17 completed Debridement of nails 6-10 Translation: Patient encounter procedure 05/13/19 completed Callus 5 or more Translation: Patient encounter procedure 05/13/19 completed Callus 5 or more Translation: Patient encounter procedure 04/27/20 completed Debridement of nails 6-10 Translation: Patient encounter procedure 04/27/20 completed Encounters Description Da te Generalized atherosclerosis 11/23/15 Peripheral vascular disease 12/31/18 Idiopathic peripheral neuropathy 12/31/18 Vitamin deficiency 12/31/18 Generalized atherosclerosis 12/31/18 Onychomycosis 12/31/18 Onychogryposis 12/31/18 Callosity 12/20 06/09 Difficulty walking 12/31/18 Influenza vaccination given 12/31/18 Get up and go test - abnormal 12/31/18 Peripheral vascular disease 03/08/21 Callosity 02/19 12/09 Onychomycosis 03/08/21 Onychogryposis 03/08/21 Bilateral acquired claw toe 03/08/21 Vitamin deficiency 03/08/21 Generalized atherosclerosis 03/08/21 Difficulty walking 03/08/21 Get up and go test - abnormal 03/08/21 Peripheral vascular disease 01/13/20 Idiopathic peripheral neuropathy 01/13/20 Callosity 12/21 08/08 Onychomycosis 01/13/20 Onychogryposis 01/13/20 Bilateral acquired claw toe 01/13/20 Vitamin deficiency 01/13/20 Generalized atherosclerosis 01/13/20 Difficulty walking 01/13/20 Get up and go test - abnormal 01/13/20 Immunizations Description Da te Status fluzone high dose 12/31/18 completed fluzone high dose 01/08/21 completed Influenza Virus Vaccine 01/27/18 completed Pneumococcal Vaccine, Nos 12/05/16 completed Plan of Treatment Most Recent Visit Encounter 03/08/21 Peripheral vascular disease Callosity Onychomycosis Onychogryposis Bilateral acquired claw toe Vitamin deficiency Generalized atherosclerosis Difficulty walking Get up and go test - abnormal Plan Notes: Routine foot care every 63 days. Patient Decision Aids Document Langu age Verbal patient education was performed Tajik Social History Social History Observation Description Date Sexual Orientation Heterosexual 08/06/19 Gender Identity Identifies as female gender 08/06/19 Sex Assigned At Female 03/10/21 Tobacco smoking status NHIS Never smoked tobacco 11/02/20 Functional Status Description Da te Hearing loss 11/16/15 Mental Status No mental status observations reported for this patient. Vital Signs Description Da te Value BP Systolic 133 mm[Hg] BP Diastolic 1 05/08/20 78 mm[Hg] Weight 1 60.33 kg Height 1 144.78 cm BMI 03/08/21 28.78 kg/m2 Heart Rate 81 /min BSA 03/08/21 1.56 m2 Heart Rate 80 /min BSA 01/04/21 1.56 m2 BP Systolic 123 mm[Hg] BP Diastolic 0 01/04/21 78 mm[Hg] Weight 1 60.33 kg Height 1 144.78 cm BMI 01/04/21 28.78 kg/m2 BP Systolic 121 mm[Hg] BP Diastolic 0 11/02/20 73 mm[Hg] Weight 1 60.33 kg Height 1 144.78 cm BMI 11/02/20 28.78 kg/m2 Heart Rate 85 /min BSA 11/02/20 1.56 m2 Heart Rate 86 /min Sp02 08/31/20 96 % BSA 08/31/20 1.57 m2 BP Systolic 159 mm[Hg] BP Diastolic 0 08/31/20 89 mm[Hg] Weight 1 61.23 kg Height 1 144.78 cm BMI 08/31/20 29.21 kg/m2 BP Systolic 112 mm[Hg] BP Diastolic 0 06/29/20 70 mm[Hg] Weight 1 61.23 kg Height 1 144.78 cm BMI 06/29/20 29.21 kg/m2 Heart Rate 03/11 73 /min BSA 06/29/20 1.57 m2 Heart Rate 11/08 92 /min BSA 04/27/20 1.57 m2 BP Systolic 119 mm[Hg] BP Diastolic 0 04/27/20 57 mm[Hg] Weight 1 61.23 kg Height 1 144.78 cm BMI 04/27/20 29.21 kg/m2 BP Systolic 114 mm[Hg] BP Diastolic 0 01/13/20 70 mm[Hg] Weight 0 61.23 kg Height 0 144.78 cm BMI 01/13/20 29.21 kg/m2 Heart Rate 89 /min BSA 01/13/20 1.57 m2 BP Systolic 120 mm[Hg] BP Diastolic 0 01/06/20 66 mm[Hg] Weight 0 61.23 kg Height 0 144.78 cm BMI 01/06/20 29.21 kg/m2 BSA 01/06/20 1.57 m2 Heart Rate 03/10 80 /min Sp02 09/30/19 95 % BSA 09/30/19 1.63 m2 BP Systolic 121 mm[Hg] BP Diastolic 0 09/30/19 67 mm[Hg] Weight 0 64.86 kg Height 0 147.32 cm BMI 09/30/19 29.89 kg/m2 Heart Rate 78 /min BSA 05/13/19 1.60 m2 BP Systolic 143 mm[Hg] BP Diastolic 0 05/13/19 89 mm[Hg] Weight 0 62.6 kg Height 0 147.32 cm BMI 05/13/19 28.84 kg/m2 BP Systolic 134 mm[Hg] BP Diastolic 1 05/04/18 72 mm[Hg] Weight 9 60.78 kg Height 9 144.78 cm BMI 03/04/19 29.00 kg/m2 Heart Rate 81 /min BSA 03/04/19 1.56 m2 BSA 12/31/18 1.58 m2 Heart Rate 04/08 75 /min BP Systolic 114 mm[Hg] BP Diastolic 0 12/31/18 70 mm[Hg] Weight 9 62.14 kg Height 9 144.78 cm BMI 12/31/18 29.65 kg/m2 BP Systolic 112 mm[Hg] BP Diastolic 0 10/29/18 65 mm[Hg] Weight 9 63.5 kg Height 9 144.78 cm BMI 10/29/18 30.30 kg/m2 BSA 10/29/18 1.60 m2 Sp02 10/29/18 95 % Heart Rate 03/09 77 /min BSA 08/20/18 1.60 m2 Sp02 08/20/18 94 % Heart Rate 06/09 86 /min BP Systolic 120 mm[Hg] BP Diastolic 0 08/20/18 60 mm[Hg] Weight 9 63.5 kg Height 9 144.78 cm BMI 08/20/18 30.30 kg/m2 BP Systolic 118 mm[Hg] BP Diastolic 0 06/18/18 60 mm[Hg] Weight 9 66.22 kg Height 9 144.78 cm BMI 06/18/18 31.59 kg/m2 BSA 06/18/18 1.63 m2 Heart Rate 78 /min BSA 03/19/18 1.63 m2 BP Systolic 110 mm[Hg] BP Diastolic 1 05/19/17 64 mm[Hg] Weight 8 66.22 kg Height 8 144.78 cm BMI 03/19/18 31.59 kg/m2 BP Systolic 124 mm[Hg] BP Diastolic 0 01/08/18 71 mm[Hg] Weight 8 66.22 kg Height 8 144.78 cm BMI 01/08/18 31.59 kg/m2 Heart Rate 80 /min BSA 01/08/18 1.63 m2 BSA 07/31/17 1.66 m2 Heart Rate 04/07 80 /min BP Systolic 130 mm[Hg] BP Diastolic 0 07/31/17 76 mm[Hg] Weight 8 68.49 kg Height 8 144.78 cm BMI 07/31/17 32.68 kg/m2 BP Systolic 132 mm[Hg] BP Diastolic 0 05/29/17 69 mm[Hg] Weight 8 68.49 kg Height 8 144.78 cm BMI 05/29/17 32.68 kg/m2 BSA 05/29/17 1.66 m2 BSA 02/27/17 1.65 m2 BP Systolic 130 mm[Hg] BP Diastolic 1 04/29/16 64 mm[Hg] Weight 7 67.59 kg Height 7 144.78 cm BMI 02/27/17 32.24 kg/m2 Weight 7 68.95 kg Height 7 144.78 cm BMI 12/26/16 32.89 kg/m2 BP Systolic 136 mm[Hg] BP Diastolic 0 12/26/16 63 mm[Hg] BSA 12/26/16 1.66 m2 Heart Rate 11/04 85 /min BSA 10/24/16 1.72 m2 Heart Rate 10/05 77 /min Weight 7 69.85 kg Height 7 152.4 cm BMI 10/24/16 30.08 kg/m2 BP Systolic 119 mm[Hg] BP Diastolic 0 10/24/16 70 mm[Hg] BP Systolic 118 mm[Hg] BP Diastolic 0 06/20/16 68 mm[Hg] Weight 7 72.57 kg Height 7 152.4 cm BMI 06/20/16 31.25 kg/m2 BSA 06/20/16 1.75 m2 BSA 01/25/16 1.75 m2 BP Systolic 126 mm[Hg] BP Diastolic 1 70 mm[Hg] Weight 6 72.57 kg Height 6 152.4 cm BMI 01/25/16 31.25 kg/m2 BP Systolic 120 mm[Hg] BP Diastolic 0 11/23/15 70 mm[Hg] Weight 6 68.04 kg Height 6 152.4 cm BMI 11/23/15 29.30 kg/m2 BSA 11/23/15 1.70 m2 Medical Equipment Description UD I Date aspirin 81 mg oral tablet 11/16/15 calcium (as carbonate) 500 mg oral table t, chewable 11/16/15 carvedilol 3.125 mg oral tablet 11/16/15 clopidogrel 75 mg oral tablet 11/16/15 fenofibrate 145 mg oral tablet 11/16/15 hydrochlorothiazide 25 mg oral tablet 11/16/15 Lipitor 40 mg oral tablet 11/16/15 lisinopril 5 mg oral tablet 11/16/15 pantoprazole 20 mg oral delayed release tablet 11/16/15 traMADol 50 mg oral tablet 11/16/15 Calcium 600+D Plus Minerals oral tablet, chewable 06/02/17 Coreg 3.125 mg oral tablet 06/02/17 hydroCHLOROthiazide 25 mg oral tablet 06/02/17 ibuprofen 200 mg oral tablet 06/02/17 lisinopril 2.5 mg oral tablet 06/02/17 pantoprazole 40 mg oral delayed release tablet 06/02/17 Plavix 75 mg oral tablet 06/02/17 traMADol 50 mg oral tablet 06/02/17 TriCor 145 mg oral tablet 06/02/17 lisinopril 5 mg oral tablet 06/02/17 CHLORHEX GLU 0.12% RACHAEL 07/14/19 PREGABALIN 25MG CAP 06/06/20 TRAMADOL 50MG TAB 06/23/20 Health Concerns Concern Type D escription Date Problem List P ain in left leg 11/16/15 Problem List P ain in right leg 11/16/15 Problem List V ertigo 11/16/15 Problem List H earing loss 11/16/15 Problem List W ears glasses 11/16/15 Problem List O steoarthritis 11/16/15 Problem List D ifficulty walking on the flat 11/16/15 Problem List E ssential hypertension 11/16/15 Problem List H yperlipidemia 11/16/15 Problem List S eizure 11/16/15 Problem List H istory of placement of stent for coronary artery disease 11/23/15 Problem List C oronary atherosclerosis 11/23/15 Problem List H /O: anticoagulant therapy 11/23/15 Problem List G eneralized atherosclerosis 11/23/15 Problem List P eripheral vascular disease 06/20/16 Problem List O nychomycosis 06/20/16 Problem List C orns and callus 06/20/16 Problem List P ain in toe 10/24/16 Problem List O nycholysis 12/26/16 Problem List W alking disability 05/29/17 Problem List O nychogryposis 05/29/17 Problem List P eripheral neuropathy - hereditary or idiopathic 07/31/17 Problem List V itamin deficiency 07/31/17 Problem List C allosity 07/31/17 Problem List I diopathic peripheral neuropathy 01/08/18 Problem List G et up and go test - abnormal 12/31/18 Problem List D ifficulty walking 12/31/18 Problem List I nfluenza vaccination given 12/31/18 Problem List B ilateral acquired claw toe 01/13/20 Allergy bextra 11/16/15 Allergy clinda mycin 11/16/15 Allergy doxycy ramos 11/16/15 Allergy etodol ac 11/16/15 Allergy Neospo rin 11/16/15 Allergy nystat in 11/16/15 Allergy penici llin 11/16/15 Allergy Polysp geovanna 11/16/15 Allergy sulfa drug 11/16/15 Allergy terbin afine 11/16/15 Allergy diclof enac 01/08/18 Goals There are currently no goals recorded for this patient.
--- OUTSIDE RECORDS SUMMARY | 2021-04-14 10:21 | XMS REPORT | Continuity of Care Document ---
Author Author [facility] Address [address] [place] [address] Phone Care Team Providers Care Clinical Secretary Name Role Phone DO Dorie Campos PCP JUAN ANTONIO Nagy Rosa L Attphys Unavailable Chief Complaint and Reason for Visit Chief Complaint R06.00 - Dyspnea, un specified Health Concerns Health concerns may be documented in an alternate section Allergies, Adverse Reactions, Alerts Allergen Type Severity Reaction Last Updated Verified Status nystatin Allergy Severe CAUSES HER TO BREAK OUT February 08, 2021 9:09am Yes Active Penicillins Allergy Marcie re SWELLING FROM INJECTION SITE FROM INJECTION IN HER 20' S February 08, 2021 9:09am Yes Active etodolac Allergy Moderate DIARRHEA February 08, 2021 9:09am Yes Active levofloxacin Allergy Mod erate CAUSED HER FINGERNAILS TO FLAKE OFF February 08, 2021 9:09am Yes Active valdecoxib Allergy Moder ate GENERALIZED WEAKNESS February 08, 2 021 9:09am Yes Active bacitracin Allergy Unkno wn UNKNOWN February 08, 2021 9:09am Yes Active clindamycin Allergy Unkn own UNKNOWN February 08, 2021 9:09am Yes Active doxycycline Allergy Unkn own Rash February 08, 2021 9:09am Yes Active erythromycin base Allergy Unknown Nausea February 08, 2021 9:09am Yes Active iodine Allergy Unknown UNKNOWN February 08, 2021 9:09am Yes Active latex Allergy Unknown UNKNOWN February 08, 2021 9:09am Yes Active morphine Allergy Unknown UNKNOWN February 08, 2021 9:09am Yes Active neomycin Allergy Unknown UNKNOWN February 08, 2021 9:09am Yes Active polymyxin B Allergy Unkn own UNKNOWN February 08, 2021 9:09am Yes Active Sulfa (Sulfonamide Antibiotics) Allergy Unknown Rash February 08, 2021 9:09am Yes Active Social History Smoking Status Status Start Date End Da te Date of Observation Never smoked tobacco (finding) February 11, 2021 2:17pm Observation Status Observation Response Abdirahman e of Response second hand exposure No February 11, 2021 1:17pm housing house February [id number] 1:17pm household members children February 12, 2021 9:38am service No Octo 2020 1:17pm current occupational status retired February 11, 2021 1:17pm current occupational exposures/hazards No February 11, 2021 1:17pm Additional Data Assigned Sex Female Family History Relationship Condition A ge at Onset Recorded Date/Time father Congestive heart failure Unknown mother Aspiration pneumonia Unknown sister Non-Hodgkin's lymphoma Unknown sister Histoplasmosis Un known sister Malignant neoplasm of lung Unknown sister Leukemia Unknown Problems Active Problems Medical Problem Onset Date Status Acute alteration in mental status Active GERD with esophagitis Active CAD (coronary artery disease) Active Hyperlipidemia Active Osteoarthritis Active 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 Elevated lactic acid level Active Barretts esophagus Act baldev Hypertension Active Inactive/Resolved Problems Medical Problem Onset Date Status Subcortical microvascular ischemic occlusive disease Resolved Acute cystitis with hematuria Resolved History of electromyography Resolved Sinusitis chronic, frontal Resolved Respiratory failure Re solved Viral infection Resolv ed Community acquired bacterial pneumonia Resolved Left knee pain Resolve d Left shoulder pain Res olved Contusion of scalp Res olved Neck pain Resolved Chest pain Resolved Contusion of left shoulder, initial encounter Resolved Fall Resolved Contusion of head Reso lved Contusion of knee, left Resolved Dehydration Resolved Medications Medication Status Dose Units Route Directions Qty Days Start Date End Date Instructions Atorvastatin Active 40 MG PO Daily January 13, 2018 10:16am Clopidogrel (Plavix) 75 mg Tablet Active 75 MG PO Daily January 13, 2018 10:16am Tramadol Active 50 - 100 MG PO Twice a Day January 13, 2018 10:16am Carvedilol Active 3.125 MG PO Twice Daily With Meals January 13, 2018 10:16am Fenofibrate Active 160 MG PO Daily January 13, 2018 10:16am Chlorhexidine Gluconate Active 15 ML PO Daily January 13, 2018 10:23am Al Hyd-Mg Tr-Alg Ac-Sod Bicarb (Gaviscon ) 80-14.2 mg Tablet,Chewable Active 3 TAB PO Daily January 13, 2018 10:23am Ascorbic Acid (Vitamin C) (Vitamin C) 250 mg Tablet,Ch ewable Active 250 MG PO .DAILY WITH MEAL February 11, 2021 12:50pm Pantoprazole Active 40 MG PO Twice a Day February 11, 2021 12:50pm Take 1 tablet (40 mg total) by mouth 2 ( two) times daily. Hydrochlorothiazide Active 25 MG PO Daily February 11, 2021 12:50pm Lisinopril Active 2.5 MG PO Daily February 11, 2021 12:50pm Diclofenac Sodium Active 2 - 4 GM TOPICAL Daily February 11, 2021 12:50pm Apply 2 to 4 grams topically to affected area daily Immunizations Immunization Event Date Not Given Reason Dose Number Ball Racker Lot Number Vaccine Information Statement (VIS) Deta il Influenza, trivalent, adjuvanted Sep tember 2016 Influenza, trivalent, adjuvanted Oct niko 2017 FLUAD Quadrivalent January 13, 2020 FLUAD Quadrivalent January 24, 2021 Influenza, split (incl. purified surface anti February 12, 2006 Influenza, split (incl. purified surface anti February 19, 2007 Influenza, split (incl. purified surface anti February 26, 2008 Influenza, split (incl. purified surface anti January 25, 2009 Td (adult), 5 Lf tetanus toxoid, pf, adsorbed January 07, 2008 Medical Equipment Device Date Implanted De vice Details ANGIO SEAL VIP 6F January 14, 2018 Procedures Procedure Date Performed Status NM Lexiscan Nuclear Stress Tst Novem 2020 8:03am active Relevant Diagnostic Tests and/or Laboratory Data No known relevant diagnostic tests and/or laboratory data. Vital Signs No vital signs result information available. Advance Directives Advance Directive Response Recorded Date/Time Advance Directive on File? No February 11, 2021 1:17pm Insurance Providers Guarantor Tamanna Thomas Address [address] [place] [id number] Contact Info. Home Phone: Payer Policy Id Coverage Id Subscriber's Name Subscriber Id Effective Date Expiration Date Blue [place] Plan 65 Secondary [id number] Tamanna Thomas [id number] Blue [facility] [id number] Tamanna Thomas [id number] Medicare [id number] Tamanna Thomas [id number] Self Pay Self N/A Encounters Encounter Location(s) Ar rival/Admit Date Discharge/Depart Date Provider(s) Departed Clinical [facility] alth-Radiology February 26, 2021 8:01am February 262020 8:02am Rosa Nagy PA-C Functional Status No functional status information available Mental Status No mental status information available Assessments No assessment information available Plan of Treatment Plan of treatment may be documented in an alternate section Goals Goals may be documented in an alternate section
--- OUTSIDE RECORDS SUMMARY | 2021-04-14 10:21 | XMS REPORT | Continuity of Care Document ---
Author Author [facility] Address [address] 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 Vaccine Information Statement (VIS) Deta [...] Lexiscan Nuclear Stress Tst Novem 2020 8:03am completed Relevant Diagnostic Tests and/or Laboratory Data Diagnostic Imaging Reports Report Dictated Date/Time Dictated By Status Radiology Report February 26, 2021 3:52pm Bora Douglas completed [facility] [address] [place] [address] Nuclear Medicine Report Signed Patient: Tamanna Thomas MR#: [id number] : 1935 Acct:[id number] Age/Sex: 85 / F ADM Date: 02/26/21 Loc: RAD Attending Provider: Rosa Nagy PA-C Ordering Provider: Rosa Nagy PA-C Date of Service: 02/26/21 Procedure(s): NM Lexiscan Nuclear Stress Tst Accession Number(s): [id number] STRESS TEST: INDICATION: Dyspnea. PATIENT OF: HERMINIO Forbes Prior history of cardiac catheterization, prior PCI. The baseline EKG demonstrated normal sinus rhythm, normal axis, poor R-wave progression across the anterior precordial leads. The patient was subjected to a Lexiscan stress protocol, no angina or arrhythmia reported during the study. SCINTIGRAPHIC IMAGING: Post-stress and resting myocardial perfusion SPECT images were obtained following standard technique in a horizontal long axis, vertical long axis, and short axis views. Resting myocardial perfusion SPECT images were obtained using 10.2 mCi of technetium 99 sestamibi. Post-stress myocardial perfusion SPECT images were obtained using 30.2 mCi of technetium 99 sestamibi. IMPRESSION: 1. The post-stress EKG is negative for myocardial ischemia by ST-segment criteria. 2. The myocardial perfusion SPECT imag es are negative for myocardial ischemia. 3. Left ventricular ejection fraction was quantitated at 67%. Gated wall motion analysis showed no evidence of segmental myocardial dysfunction. 4. There was no evidence of pharmacolo gic-induced transient ischemic dilatation of the left ventricle with a value calculated at 1.23. 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 Advance Directives Advance Directive Response Recorded Date/Time Advance Directive on File? No February 11, 2021 1:17pm Insurance Providers Guarantor Tamanna Thomas Address [address] [place] [address] Contact Info. Home Phone: Payer Policy Id Coverage Id Subscriber's Name Subscriber Id Effective Date Expiration Date Blue Cross Plan 65 Secondary [id number] Tamanna Thomas [id number] Blue Cross Blue Shield [id number] Tamanna Thomas [id number] Medicare [id number] Tamannamaryanne Thomas [id number] Self Pay Self N/A Encounters Encounter Location(s) Ar rival/Admit Date Discharge/Depart Date Provider(s) Departed Clinical [facility] alth-Radiology February 26, 2021 8:01am February 262020 8:02am Rosa Nagy PA-C Departed Clinical [facility] alth-Cardiopulmonary Services March 01, 2021 12:26pm March 01, 2021 12:27pm Dorie Campos Functional Status No functional status information available Mental Status No mental status information available Assessments No assessment information available Plan of Treatment Plan of treatment may be documented in an alternate section Goals Goals may be documented in an alternate section
--- OUTSIDE RECORDS SUMMARY | 2021-04-14 10:21 | XMS REPORT | Continuity of Care Document ---
Author Author [facility] Address [address] [place] [address] Phone Care Team Providers Care Drop Wire Stringer Name Role Phone DO Dorie Campos PCP MD Rafael Sandoval Attphys Chief Complaint and Reason for Visit Chief Complaint New patient-Left Hip Pain Health Concerns Health concerns may be documented in an alternate section Allergies, Adverse Reactions, Alerts Allergen Type Severity Reaction Last Updated Verified Status nystatin Allergy Severe CAUSES HER TO BREAK OUT March 27, 2021 1:40pm Yes Active Penicillins Allergy Marcie re SWELLING FROM INJECTION SITE FROM INJECTION IN HER 20' S March 27, 2021 1:40pm Yes Active etodolac Allergy Moderate DIARRHEA March 27, 2021 1:40pm Yes Active levofloxacin Allergy Mod erate CAUSED HER FINGERNAILS TO FLAKE OFF March 27, 2021 1:40pm Yes Active valdecoxib Allergy Moder ate GENERALIZED WEAKNESS March 27, 2 021 1:40pm Yes Active bacitracin Allergy Unkno wn UNKNOWN March 27, 2021 1:40pm Yes Active clindamycin Allergy Unkn own UNKNOWN March 27, 2021 1:40pm Yes Active doxycycline Allergy Unkn own Rash March 27, 2021 1:40pm Yes Active erythromycin base Allergy Unknown Nausea March 27, 2021 1:40pm Yes Active iodine Allergy Unknown UNKNOWN March 27, 2021 1:40pm Yes Active latex Allergy Unknown UNKNOWN March 27, 2021 1:40pm Yes Active morphine Allergy Unknown UNKNOWN March 27, 2021 1:40pm Yes Active neomycin Allergy Unknown UNKNOWN March 27, 2021 1:40pm Yes Active polymyxin B Allergy Unkn own UNKNOWN March 27, 2021 1:40pm Yes Active Sulfa (Sulfonamide Antibiotics) Allergy Unknown Rash March 27, 2021 1:40pm Yes Active Social History Smoking Status Status Start Date End Da te Date of Observation Never smoked tobacco (finding) March 27, 2021 1:41pm Observation Status Observation Response Abdirahman e of Response second hand exposure No February 11, 2021 1:17pm alcohol intake denies alcohol use March 27, 2021 1:41pm housing house February 112020 1:17pm household members [...] Event Date Not Given Reason Dose Number 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 Vital Signs Vital Reading Result Ref erence Range Collection Date/Time Height 59 [in_i] March 27, 2021 1:41pm Weight 137.00 [lb_av] March 27, 2021 1:41pm Body Temperature 98.2 [degF] 97.5-99.5 March 27, 2021 1:41pm Heart Rate 84 /min 60-90 March 27, 2021 1:41pm Respiratory rate 18 /min 12-20 March 27, 2021 1:41pm BP Systolic 147 mm[Hg] 1 00-160 March 27, 2021 1:41pm BP Diastolic 66 mm[Hg] 5 0-80 March 27, 2021 1:41pm BMI (Body Mass Index) 27.6 kg/m2 March 27, 2021 1:41pm Advance Directives Advance Directive Response Recorded Date/Time Advance Directive on File? No February 11, 2021 1:17pm Insurance Providers Guarantor Tamanna Thomas Address [address] [place] [address] Contact Info. Home Phone: Payer Policy Id Coverage Id Subscriber's Name Subscriber Id Effective Date Expiration Date Blue Cross Plan 65 Secondary [id number] Tamanna Thomas [id number] Blue Cross Blue Shield [id number] Tamanna Thomas [id number] Medicare [id number] Tamanna Thomas [id number] Self Pay Self N/A Encounters Encounter Location(s) Ar rival/Admit Date Discharge/Depart Date Provider(s) Departed Clinical [facility] alth-Pain Clinic March 27, 2021 1:28pm March 272020 2:02pm Rafael Sandoval Functional Status No functional status information available Mental Status No mental status information available Assessments No assessment information available Plan of Treatment Plan of treatment may be documented in an alternate section Goals Goals may be documented in an alternate section
--- OUTSIDE RECORDS SUMMARY | 2021-04-14 10:21 | XMS REPORT | Continuity of Care Document ---
Author Author [facility] Address [address] 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 Lot Number Vaccine Information Statement (VIS) Deta [...] 14, 2018 Procedures Procedure Date Performed Status US carotid doppler BI March 13, 2021 7:53am completed US echocardiogram ultrasound [facility] 2020 7:53am completed Relevant Diagnostic Tests and/or Laboratory Data Diagnostic Imaging Reports Report Dictated Date/Time Dictated By Status Radiology Report March 13, 2021 9:50a m Andrey Sage completed [facility] [address] [place] [address] Ultrasound Report Signed Patient: Tamanna Thomas MR#: [id number] : 1935 Acct:[id number] Age/Sex: 85 / F ADM Date: 03/13/21 Loc: RAD Attending Provider: Dorie Campos DO Ordering Provider: Dorie Campos Date of Service: 03/13/21 Procedure(s): US carotid doppler BI Accession Number(s): [id number] EXAM: Bilateral Carotid Ultrasound INDICATION: Syncope and collapse TECHNIQUE: Real-time ultrasound of the carotids was performed with permanent freeze-frame documentation. Duplex Doppler and color flow ultrasound of the relevant arterial and venous structures was included. COMPARISON: None. FINDINGS: Grayscale and color Doppler imaging demonstrates plaque within both carotid arterial systems Peak systolic velocity distal right CCA 62.2 cm/sec, proximal right ICA 63.7 cm/sec, mid right ICA 78 cm/2nd distal right ICA 70.5 cm/sec. Peak systolic velocity ratio is 1. Peak systolic velocity proximal right ECA 75.1 cm/sec. End-diastolic velocities within right ICA are within normal limits. Arterial flow in right vertebral artery is antegrade. Peak systolic velocity distal left CCA 60.2 cm/sec, proximal left ICA 53.3 cm/sec, mid left ICA 50.1 cm/sec and distal left ICA 78.4 cm/sec. Peak systolic velocity ratio is 0.9. Peak systolic velocity proximal left ECA 81.6 cm/sec. Arterial flow left vertebral artery is antegrade. IMPRESSION: No evidence of significant atherosclerotic plaque or hemodynamically significant stenosis. Measurement of carotid stenosis is based on velocity parameters that correlate the residual internal carotid diameter with [place] Symptomatic Carotid Endarterectomy Trial (NASCET) - based stenosis levels. Dictated By: Andrey Sage Signed By: 03/13/2150 DD/ 9 TD/TT: Refined Syrup Operator: MICHAEL cc: ~ Report Dictated Date/Time Dictated By Status Radiology Report March 13, 2021 10:47pm Saurabh Bennett completed [facility] [address] [place] [address] Ultrasound Report Signed Patient: Tamanna Thomas MR#: [id number] : 1935 Acct:[id number] Age/Sex: 85 / F ADM Date: 03/13/21 Loc: RAD Attending Provider: Dorie Campos DO Ordering Provider: Dorie Campos Date of Service: 03/13/21 Procedure(s): US echocardiogram ultrasound Accession Number(s): [id number] Date of Service: 03/13/2021 Type of Procedure: Transthoracic echocardiogram Interpreting Loading Checker: Saurabh Bennett MD, [facility] Indication for Procedure: Evaluation of syncope. Description of Procedure: Transthoracic echocardiography was performed with 2-dimensional imaging, Doppler spectral analysis, and color-flow imaging. The rhythm was sinus, with heart rates in the 70s. Impression: 1. Left ventricle size normal. 2. No evidence of significant LV hypertrophy. 3. Moderate LV diastolic dysfunction, grade 2 of 4. 4. LV systolic function normal, ejection fraction 60%. 5. Left atrium size normal. 6. Right ventricle size normal. 7. RV systolic function normal. 8. Right atrium size normal. 9. No evidence of significant pericardial effusion. 10. Aortic valve sclerosis without stenosis. Mild aortic insufficiency. 11. Mitral valve appears normal. 12. Pulmonic valve appears normal. 13. Tricuspid valve appears normal. Mild tricuspid insufficiency. 14. Pulmonary artery systolic pressure normal, 33 mmHg. 15. Rhythm sinus. Dictated By: Saurabh Bennett Signed By: 03/13/212246 DD/ 46 TD/TT: Refined Syrup Operator: TYREL cc: ~ Vital Signs No vital signs result information available. Advance Directives Advance Directive Response Recorded Date/Time Advance Directive on File? No February 11, 2021 1:17pm Insurance Providers Guarantor Tamanna Thomas Address [address] [place] [address] Contact Info. Home Phone: Payer Policy Id Coverage Id Subscriber's Name Subscriber Id Effective Date Expiration Date Blue Cross Plan 65 Secondary [id number] Tamanna Thomas [id number] Blue Cross Blue Shield [id number] Tamanna Thomas [id number] Medicare [id number] Tamanna Thomas [id number] Self Pay Self N/A Encounters Encounter Location(s) Ar rival/Admit Date Discharge/Depart Date Provider(s) Departed Clinical [facility]-Radiology March 13, 2021 7:43am March 13, 2021 7:44am Dorie Campos Functional Status No functional status information available Mental Status No mental status information available Assessments No assessment information available Plan of Treatment Plan of treatment may be documented in an alternate section Goals Goals may be documented in an alternate section
--- OUTSIDE RECORDS SUMMARY | 2021-04-14 10:21 | XMS REPORT | Continuity of Care Document ---
Author Author [facility] Address [address] 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 Name Role Phone DO Dorie Campos PCP JUAN ANTONIO Nagy Attphys DO Bora Douglas Rndphys MD Unruly Saldana Rndphys MD CHANTE MITCHEL Admphys MD Karen Fofana Attphys [email or web address] Chief Complaint and Reason for Visit Chief Complaint 1 yr follow reschedu led Stroke Reason for Visit CAD (coronary arter y disease) Hyperlipidemia Hypertension Acute alteration in mental status Elevated lactic acid level Barretts esophagus CAD (coronary artery disease) GERD with esophagitis Hyperlipidemia Hypertension Mass of upper lobe of left lung Osteoarthritis Health Concerns Health concerns may be documented in an alternate section Allergies, Adverse Reactions, Alerts Allergen Type Severity Reaction Last Updated Verified Status nystatin Allergy Severe CAUSES HER TO BREAK OUT February 08, 2021 10:09am Yes Active Penicillins Allergy Marcie re SWELLING FROM INJECTION SITE FROM INJECTION IN HER 20' S February 08, 2021 10:09am Yes Active etodolac Allergy Moderate DIARRHEA February 08, 2021 10:09am Yes Active levofloxacin Allergy Mod erate CAUSED HER FINGERNAILS TO FLAKE OFF February 08, 2021 10:09am Yes Active valdecoxib Allergy Moder ate GENERALIZED WEAKNESS October 21st, 2 021 10:09am Yes Active bacitracin Allergy Unkno wn UNKNOWN February 08, 2021 10:09am Yes Active clindamycin Allergy Unkn own UNKNOWN February 08, 2021 10:09am Yes Active doxycycline Allergy Unkn own Rash February 08, 2021 10:09am Yes Active erythromycin base Allergy Unknown Nausea February 08, 2021 10:09am Yes Active iodine Allergy Unknown UNKNOWN February 08, 2021 10:09am Yes Active latex Allergy Unknown UNKNOWN February 08, 2021 10:09am Yes Active morphine Allergy Unknown UNKNOWN February 08, 2021 10:09am Yes Active neomycin Allergy Unknown UNKNOWN February 08, 2021 10:09am Yes Active polymyxin B Allergy Unkn own UNKNOWN February 08, 2021 10:09am Yes Active Sulfa (Sulfonamide Antibiotics) Allergy Unknown Rash February 08, 2021 10:09am Yes Active Social History Smoking Status Status Start Date End Da te Date of Observation Never smoked tobacco (finding) February 11, 2021 2:17pm Observation Status Observation Response Abdirahman e of Response Recent Travel No February 11, 2021 2:17pm current occupational exposures/hazards No February 11, 2021 2:17pm current occupational status retired February 11, 2021 2:17pm household members children February 12, 2021 10:38am housing house February 112020 2:17pm service No Jano 2020 2:17pm second hand exposure No February 11, 2021 2:17pm Additional Data Assigned Sex Female Family History [...] 40 MG PO Daily January 13, 2018 11:16am Clopidogrel (Plavix) 75 mg Tablet Active 75 MG PO Daily January 13, 2018 11:16am Tramadol Active 50 - 100 MG PO Twice a Day January 13, 2018 11:16am Carvedilol Active 3.125 MG PO Twice Daily With Meals January 13, 2018 11:16am Fenofibrate Active 160 MG PO Daily January 13, 2018 11:16am Chlorhexidine Gluconate Active 15 ML PO Daily January 13, 2018 11:23am Al Hyd-Mg Tr-Alg Ac-Sod Bicarb (Gaviscon ) 80-14.2 mg Tablet,Chewable Active 3 TAB PO Daily January 13, 2018 11:23am Ascorbic Acid (Vitamin C) (Vitamin C) 250 mg Tablet,Ch ewable Active 250 MG PO .DAILY WITH MEAL February 11, 2021 1:50pm Pantoprazole Active 40 MG PO Twice a Day February 11, 2021 1:50pm Take 1 tablet (40 mg total) by mouth 2 ( two) times daily. Hydrochlorothiazide Active 25 MG PO Daily February 11, 2021 1:50pm Lisinopril Active 2.5 MG PO Daily February 11, 2021 1:50pm Diclofenac Sodium Active 2 - 4 GM TOPICAL Daily February 11, 2021 1:50pm Apply 2 to 4 grams topically to affected area daily Immunizations Immunization Event Date Not Given Reason Dose Number Manager Sign Lot Number Vaccine Information Statement (VIS) Deta [...] 14, 2018 Procedures Procedure Date Performed Status CT head/brain wo con February 11, 2 021 9:57am completed XR chest 1V February 11, 2021 10:14am completed MR head/brain wo/w con February 11, 2021 11:31am completed XR chest 1V February 12, 2021 8:00am completed Respiratory Panel (PCR) February 11, 2021 cancelled Coronavirus COVID-19 PCR February 11 completed Blood Culture February 11, 2021 active Relevant Diagnostic Tests and/or Laboratory Data Laboratory Results Test Date/Time Result Interpretation Reference Range Result Comment Performing Site White Blood Count February 13, 2021 5:36a m 6.0 10^3/uL 4.5-11.[address] [address] Red Blood Count February 13, 2021 5:36am 4.34 10^6/uL 3.50-5.[address] [address] Hemoglobin February 13, 2021 5:36am 12.9 g/dL 12.0-16.[address] [address] Hematocrit February 13, 2021 5:36am 38.7 % 36-48 [place] [id number] Mean Corpuscular Volume January 5:36am 89.1 fL 79-99 [place] [id number] Mean Corpuscular Hemoglobin February 13, 2021 5:36am 29.8 pg 25.0-34.[address] [address] Mean Corpuscular Hemoglobin Concent February 13, 2021 5:36am 33.4 g/dL 31.0-36.0 [place] [id number] Red Cell Distribution Width February 13, 2021 5:36am 16.6 % 11.0-15.[address] [address] Platelet Count February 13, 2021 5:36am 240 10^3 uL 130-400 [place] [id number] Mean Platelet Volume February 13 2 021 5:36am 8.4 fL 7.0-11.0 [place] [id number] Monocyte Distribution Width February 11, 2021 9:20am 17.39 0.00-20.[address] [address] Neutrophils % February 13, 2021 5:36am 72.0 % 43.0-72.[address] [address] Lymphocytes % February 13, 2021 5:36am 16.9 % 15.0-45.[address] [address] Monocytes % February 13, 2021 5:36am 7.7 % 1.0-12.[address] [address] Eosinophils % February 13, 2021 5:36am 2.7 % 0.0-6.[address] [address] Basophils % February 13, 2021 5:36am 0.7 % 0.0-2.[address] [address] Neutrophils # February 13, 2021 5:36am 4.3 10^3/uL 1.0-8.[address] [address] Lymphocytes # February 13, 2021 5:36am 1.0 10^3/uL 1.0-3.[address] [address] Monocytes # February 13, 2021 5:36am 0.5 10^3/uL 0.0-1.[address] [address] Eosinophils # February 13, 2021 5:36am 0.2 10^3/uL 0.0-0.[address] [address] Basophils # February 13, 2021 5:36am 0.0 10^3/uL 0.0-0.[address] [address] Nucleated Red Blood Cells % February 13, 2021 5:36am 0.1 % [address] [address] Nucleated Red Blood Cells # February 13, 2021 5:36am 0.01 10^3/uL [address] [address] Erythrocyte Sedimentation Rate Octob er 2020 9:20am 5 mm/Hr 0-[address] [address] Prothrombin Time February 11, 2021 9:20am 11.9 Secconds 12.3-14.[address] [address] INR International Normalized Ratio O ctober 2020 9:20am 0.90 0.90-1.10 Therapeutic Range: Prophylaxis - Thromb osis 2.0-3.0 Mechanical Heart Valves 2.5-3.5 Myocardial Infarction 2.0-3.[address] [address] Activated Partial Thromboplast Time February 11, 2021 9:20am 22.5 Seconds 24.4-32.[address] [address] Urine Color February 11, 2021 9:10am Yellow Yellow [address] [address] Urine Appearance February 11, 2021 9:10am Clear Clear [address] [address] Urine pH February 11, 2021 9:10am 5.[address] [address] Urine Specific [place] February 11, 2021 9:10am [address] [address] Urine Protein February 11, 2021 9:10am Negative Neg-Trace [address] [address] Urine Glucose (UA) February 11 9:10am Negative Negative [address] [address] Urine Ketones February 11, 2021 9:10am Negative Negative [address] [address] Urine Blood February 11, 2021 9:10am 2+ Negative [address] [address] Urine Nitrite February 11, 2021 9:10am Negative Negative [address] [address] Urine Bilirubin February 11, 2021 9:10am Negative Negative [address] [address] Urine Urobilinogen February 11 9:10am [address] [place] [address] Urine Leukocyte Esterase January 9:10am Negative Negative [address] [place] [address] Urine RBC February 11, 2021 9:10am 2-[address] [place] [address] Urine WBC February 11, 2021 9:10am 0-[address] [place] [address] Urine Squamous Epithelial Cells Octo 2020 9:10am 0-[address] [address] Urine Bacteria February 11, 2021 9:10am Trace Neg - Trace [address] [address] Urine Culture Indicated January 9:10am Not Indicated No Culture Reflex Ordered.The specimen did not meet the following criteria OR contained >25 epithelials, indicating contamination. * Culture Criteria: * * * * Urinalysis Leukocyte 1+ or > * * Urinalysis Nitrates + * * Microscopic WBC 10 or > * * Microscopic Bacteria 2+ or > * * Microscopic Yeast 2+ or > * [address] [place] [address] Urinalysis Comment February 11 9:10am See comment Asymptomatic bacteriuria should seldom if ever be treated unless related to or urologic surgery.Symptomatic urinary tract infection (UTI) is defined by 2 or more of the following without an alternative explanation:- Fever- Flank pain or tenderness- Suprapubic pain or tenderness- Costovertebral angle pain or tenderness- Acute hematuria- Dysuria- New or marked increase in frequency / urgencyPyuria alone is not a criterion for symptomatic UTI.Source: [facility] National Healthcare Safety Network Criteria for Defining UTI EventsTreatment [id number] line: Nitrofurantoin for 5 days; Bactrim DS for 3 jlyf2qn line: Beta-lactams for 5 days; Cipro or Levaquin for 3 daysSumiton Fluoroquinolones for severe infections or those with no alternative treatment options. Serious adverse effects outweigh benefits for patients with uncomplicated infections [place] [id number] Sodium Level February 13, 2021 5:36am 140 mmol/L 135-150 [place] [id number] Potassium Level February 13, 2021 5:36am 3.3 mmol/L 3.4-5.2 [place] [id number] Chloride Level February 13, 2021 5:36am 102 mmol/L 100-[address] [address] Carbon Dioxide Level February 13 5:36am 27 mEq/L 18-30 [place] [id number] Anion Gap February 13, 2021 5:36am 11 mmol/L 8-[address] [address] Blood Urea Nitrogen February 13 5:36am 19 mg/dL - [address] [address] Creatinine February 13, 2021 5:36am 0.64 mg/dL 0.60-1.30 [place] [id number] Glomerular Filtration Rate Calc Octo 2020 5:36am > 60 mL/Min The GFR is not validated for use in drug dosing adjustments.Continue to use estimated creatinine clearance per dosingreference text.Chronic Kidney Disease is defined as either kidney damage ora GFR less than 60 ml/min that persists for at least 3months. Stage 3 = 30-59 ml/min Stage 4 = 15-29 ml/min Stage 5 = <15 ml/min [address] [address] Glucose Level February 13, 2021 5:36am 109 mg/dL 70-99 [place] [id number] Bedside Glucose February 11, 2021 9:16am 133 mg/dL 70-99 Point of Care Testing [place] [id number] Lactic Acid Level February 11, 2021 12:52pm 1.2 mmol/L 0.4-2.0 [place] [id number] Calcium Level February 13, 2021 5:36am 9.8 mg/dL 8.6-10.[address] [address] Total Bilirubin February 13, 2021 5:36am 0.3 mg/dL 0.0-1.[address] [address] Aspartate Amino Transf (AST/SGOT) Oc tob2020 5:36am 18 U/L 6-[address] [address] Alanine Aminotransferase (ALT/SGPT) February 13, 2021 5:36am 11 U/L 12-[address] [address] Troponin I February 11, 2021 9:20am < 0.01 ng/mL 0.00-0.05 [place] [id number] C-Reactive Protein, Quantitative Oct niko 2020 9:20am < 2.5 mg/L <5.1 [place] [id number] Total Protein February 13, 2021 5:36am 6.6 g/dL 6.4-8.[address] [address] Albumin February 13, 2021 5:36am 3.7 g/dL 3.3-4.[address] [address] Albumin/Globulin Ratio February 13, 2021 5:36am 1.3 0.7-2.0 [place] [id number] Alkaline Phosphatase February 13 5:36am 51 U/L 50-136 [place] 195011 Thyroid Stimulating Hormone (Reflex February 11, 2021 9:20am 4.550 uIU/mL 0.35-4.94 [place] [id number] Procalcitonin February 13, 2021 5:36am < 0.05 ng/mL 0.00-0.10 PCT Conc. Interpretation < 0.5 ng/mL Low risk for progression to severe sepsis &/or shock0.5-2.0 ng/mL Sepsis should be considered> 2.0 ng/mL High risk for progression to severe sepsis &/or shock [place] [id number] Plasma/Serum Ethyl Alcohol January 202020 9:20am 0 mg/dL >0 [place] [id number] Microbiology Results Procedure Source Result Collection Date/Time Result Date/Time Result Comment Performing Site Coronavirus COVID-19 PCR Nasopharyngeal February 11, 2021 3:00pm February 122020 6:33am [address] [address] Diagnostic Imaging Reports Report Dictated Date/Time Dictated By Status Radiology Report February 11, 2021 10:31a m Unruly Landeros completed [place] [id number] CT Scan Report Signed Patient: Tamanna Thomas MR#: [id number] : 1935 Acct:[id number] Age/Sex: 85 / F ADM Date: 02/11/21 Loc: ED Attending Provider: Ordering Provider: Unruly Saldana Date of Service: 02/11/21 Procedure(s): CT head/brain wo con Accession Number(s): [id number] EXAM: CT Head without IV contrast INDICATION: Altered mental status TECHNIQUE: Multi-detector row CT images were obtained of the head without the use of IV contrast. All CT scans performed at this facility utilize dose optimization techniques as appropriate to the exam, including the following: Automated exposure control and adjustment of the mA and/or KV according to patient size (this includes techniques or standardized protocols for targeted exams where dose is indication/reason for exam). DLP: 1018 mGycm COMPARISON: September 22, 2020 FINDINGS: BRAIN PARENCHYMA: No evidence of acute intraparenchymal hemorrhage or infarct. Mild cerebral and cerebellar atrophy. Moderate periventricular and subcortical white matter low attenuation which is nonspecific but most often seen with chronic small vessel ischemic changes. Sequelae of small chronic infarct adjacent to the anterior horn left lateral ventricle. Vascular atheromatous calcifications of the distal internal carotid arteries and distal vertebral arteries. VENTRICLES & EXTRA-AXIAL SPACES: Ventricles are within normal limits. Basilar cisterns are patent. No pathologic extra-axial fluid collection or mass. ORBITS: Orbital contents are unremarkable. SINUSES: Visualized paranasal sinuses and mastoid air cells are clear. OSSEOUS & SOFT TISSUES: Calvarium and skull base are intact. IMPRESSION: 1. No acute intracranial abnormality is identified. 2. Chronic changes as described. Dictated By: Unruly Landeros Signed By: 02/11/21 1032 DD/ 1031 TD/TT: Newspaper Delivery Counselor: DOMENICA cc: ~ Report Dictated Date/Time Dictated By Status Radiology Report February 11, 2021 10:38a m Unruly Landeros completed [facility] [address] [place] [address] XRay Report Signed Patient: Tamanna Thomas MR#: [id number] : 1935 Acct:[id number] Age/Sex: 85 / F ADM Date: 02/11/21 Loc: ED Attending Provider: Ordering Provider: Unruly Saldana Date of Service: 02/11/21 Procedure(s): XR chest 1V Accession Number(s): [id number] EXAM: Chest, AP View INDICATION: Elevated lactic acid TECHNIQUE: Single AP view COMPARISON: None FINDINGS: The heart size is normal. Vascular atheromatous calcifications. Large calcified granulomas. The lungs are clear. There is no pleural effusion or pneumothorax. Reverse left shoulder arthroplasty. IMPRESSION: No active cardiopulmonary disease. Dictated By: Unruly Landeros Signed By: 02/11/21 1038 DD/ 1038 TD/TT: Newspaper Delivery Counselor: DOMENICA cc: ~ Report Dictated Date/Time Dictated By Status Radiology Report February 11, 2021 3:29pm Unruly Landeros completed [facility] [address] [place] [address] Magnetic Resonance Report Signed Patient: Tamanna Thomas MR#: [id number] : 1935 Acct:[id number] Age/Sex: 85 / F ADM Date: 02/11/21 Loc: 3W 370-A Attending Provider: Karen Fofana MD Ordering Provider: Mitchel Marie MD Date of Service: 02/11/21 Procedure(s): MR head/brain wo/w con Accession Number(s): [id number] EXAM: MRI Brain with and without IV contrast INDICATION: Altered mental status. Rule out CVA. TECHNIQUE: Sagittal and axial T1-w and axial T2-w, FLAIR, GRE, coronal T2-w, and diffusion-w images of the brain with ADC maps without contrast followed by post contrast axial and sagittal T1-w and coronal T1-fatsat sequences. IV CONTRAST: Administered COMPARISON: February 11, 2021 FINDINGS: BRAIN PARENCHYMA: No evidence of hyperacute, acute, or early subacute infarction. Mild cerebral and cerebellar atrophy. Moderate periventricular and subcortical T2/FLAIR hyperintensity which is nonspecific but most often seen with chronic small vessel ischemic changes. VENTRICLES & EXTRA-AXIAL SPACES: Ventricles are within normal limits. Basilar cisterns are patent. No abnormal extra-axial fluid or mass. No abnormal enhancement. VESSELS: Normal signal voids in the larger intracranial vessels. ORBITS: Orbital contents are unremarkable. SINUSES: Paranasal sinuses are clear. Tympanic cavities and mastoid air cells are clear. OSSEOUS & SOFT TISSUES: Marrow signal is within normal limits. Susceptibility artifact in the posterior superior left scalp. IMPRESSION: 1. No acute intracranial abnormality is identified. 2. Mild cerebral and cerebellar atrophy. 3. Moderate periventricular and subcortical T2/FLAIR hyperintensity which is nonspecific but most often seen with chronic small vessel ischemic changes. Dictated By: Unruly Landeros Signed By: 02/11/211528 DD/ 28 TD/TT: Newspaper Delivery Counselor: DOMENICA cc: ~ Report Dictated Date/Time Dictated By Status Radiology Report February 12, 2021 8:02am Andrey Sage completed [facility] [address] [place] [address] XRay Report Signed Patient: Tamanna Thomas MR#: [id number] : 1935 Acct:[id number] Age/Sex: 85 / F ADM Date: 02/11/21 Loc: 3 370-A Attending Provider: Karen Fofana MD Ordering Provider: Mitchel Marie MD Date of Service: 02/12/21 Procedure(s): XR chest 1V Accession Number(s): [id number] EXAM: Chest, AP View INDICATION: Hypoxia TECHNIQUE: Single AP view COMPARISON: 11 February 2021 FINDINGS: Elevation of the right hemidiaphragm The heart size is normal. Calcified plaque thoracic aorta Calcified mediastinal and left hilar lymph nodes. Subsegmental atelectasis right lower lung. Left lung is clear There is no pleural effusion or pneumothorax. There are no significant osseous abnormalities. Left shoulder prosthesis IMPRESSION: No pneumonic infiltrate. Subsegmental atelectasis right lower lung. Dictated By: Andrey Sage Signed By: 02/12/21801 DD/ 1 TD/TT: Newspaper Delivery Counselor: MICHAEL cc: ~ Vital Signs Vital Reading Result Ref erence Range Collection Date/Time Height 63 [in_i] February 08, 2021 10:08am Weight 139.12 [lb_av] February 08, 2021 10:08am Body Temperature 97.5 [degF] 97.5-99.5 February 08, 2021 10:08am Heart Rate 80 /min 60-90 February 08, 2021 10:08am Respiratory rate 18 /min 12-20 February 08, 2021 10:08am Oxygen saturation by Pulse oximetry 94 % 90- 100 February 08, 2021 10:08am BP Systolic 146 mm[Hg] 1 00-160 February 08, 2021 10:08am BP Diastolic 82 mm[Hg] 5 0-80 February 08, 2021 10:08am BMI (Body Mass Index) 24.6 kg/m2 February 08, 2021 10:08am Height 65 [in_i] February 11, 2021 2:15pm Weight 137.18 [lb_av] February 13, 2021 2:32am Body Temperature 97.6 [degF] 97.5-99.5 February 13, 2021 7:16am Heart Rate 84 /min 60-90 February 13, 2021 8:00am Respiratory rate 16 /min -20 February 13, 2021 7:16am Oxygen saturation by Pulse oximetry 96 % 90- 100 February 13, 2021 7:16am BP Systolic 138 mm[Hg] 1 00-160 February 13, 2021 7:16am BP Diastolic 62 mm[Hg] 5 0-80 February 13, 2021 7:16am BMI (Body Mass Index) 23.2 kg/m2 February 11, 2021 2:15pm Inhaled oxygen flow rate 1 L/min February 13, 2021 7:16am Advance Directives Advance Directive Response Recorded Date/Time Advance Directive on File? No February 11, 2021 2:17pm Insurance Providers Guarantor Tamanna Thomas Address [address] [place] [address] Contact Info. Home Phone: Payer Policy Id Coverage Id Subscriber's Name Subscriber Id Effective Date Expiration Date Blue Cross Plan 65 Secondary [id number] Tamanna Thomas [id number] Blue Cross Blue Shield [id number] Tamanna Thomas [id number] Medicare [id number] Tamanna Thomas [id number] Self Pay Self N/A Encounters Encounter Location(s) Ar rival/Admit Date Discharge/Depart Date Provider(s) [facility]arted [facility] Cardiology February 08, 2021 10:05am February 08, 2021 11:15am Rosa Nagy PA-C Departed Clinical [facility]-E[facility] February 08, 2021 10:19am January 202020 10:20am Rosa Nagy PA-C [facility] ([id number]) February 11, 2021 10:49am February 13, 2021 2:50pm Karen Fofana MD Recent Diagnosis Onset Date CAD (coronary artery disease) Hyperlipidemia Hypertension Acute alteration in mental status Elevated lactic acid level Barretts esophagus CAD (coronary artery disease) GERD with esophagitis Hyperlipidemia Hypertension Mass of upper lobe of left lung Osteoarthritis Functional Status Observation Response Abdirahman e Recorded Oral Care Ability Independent February 11, 2021 2:17pm Bathing Ability Independent February 13, 2021 2:23pm Standby Assistance Oct niko 2020 2:23pm Upper Body Dressing Ability Minimum Assistance February 13, 2021 2:23pm Eating (Feeding) Ability Independent February 13, 2021 2:23pm Toileting Ability Minimum Assistance February 13, 2021 2:23pm Ambulation Ability Minimum Assistance February 13, 2021 2:23pm Meal Preparation Ability Independent ly Prepares and Serves Meals February 11, 2021 2:17pm ability to manage housework Yes February 11, 2021 2:17pm ability to manage transportation Yes February 11, 2021 2:17pm Assistive Devices Rolling Walker February 11, 2021 2:17pm Physical Barriers in Home Environment Level, No Step February 11, 2021 2:17pm Community Services Using Home Health Aide February 11, 2021 2:17pm Home Health Nurse Octo 2020 2:17pm Mental Status Observation Response Abdirahman e Recorded Neurological exam IM alert February 11, 2021 11:51am oriented X3 February 112020 11:51am CN II-XII intact Octob er 2020 11:51am moving all extremities February 11, 2021 11:51am normal tone February 112020 11:51am normal speech February 11, 2021 11:51am normal reflexes Octobe r 2020 11:51am hearing grossly intact February 11, 2021 11:51am Neurological exam IM alert February 09, 2021 9:37am abnormal gait February 09, 2021 9:37am oriented X3 February 092020 9:37am CN II-XII intact Octob er 2020 9:37am moving all extremities February 09, 2021 9:37am Assessments -Acute metabolic encephalopathy, most likely 2/2 dehydration--resolved -lactic acidosis - resolved -CAD - -OA - -HTN - -HLD - Plan of Treatment home with home health ensure adequate oral fluid intake and hydration follow up with primary care physician in 1 week, recheck labs BMP at follow up v isit 01/13/18 Minimal coronary artery disease with patent stent in the right coronary artery LVEF of 60%-65% Incidentally noted is a left upper lobe mass that will require a CT of t he chest to evaluate Occasional left chest pressure is reported, but not as severe as prior to stent placement. Continued fatigue since recent hospitalization. Lexiscan nuclear stress testing will be performed to r/o ischemia. Continue Atorvastatin, Coreg, Plavix, Fenofibrate Blood pressure is acceptable for age. Coreg 3.125mg BID Labs 01/24/21 Sodium 144 Potassium 3.2 BUN 25 Creatinine 0.67 Atorvastatin 40mg daily and Fenofibrate 160mg daily. No myalgias are reported. Recommend yearly lipid panel and LFTs. Lipid panel 01/24/21 Cholesterol 137 Triglycerides 81 HDL 59 LDL 62 She will return to clinic in 1 year or sooner if needed. Thank you for allowing me to participate in the care of your patient, please call with any questions or concerns. IRosa PA-C, transcribed this document. Future Tests Future scheduled test information is unavailable Pending Tests Pending diagnostic test information is unavailable Future Visits Future appointment information is unavailable Referrals to Other Providers Reason for Referral Referral Start Date Provider Provider Conta ct Information Provider Address FOLLOW UP WITH DAMIAN GRAY E mail: Work Phone: [facility] [address] [facility] [address] Future Procedures Future procedure information is unavailable Future Medications Future medication information is unavailable Patient Instructions Dehydration (DC) Goals Acute Goals Problem: Fall Goal: Prevention of further falls. Plan: Refer to patient instructions provided.
--- OUTSIDE RECORDS SUMMARY | 2021-04-14 10:21 | XMS REPORT | Continuity of Care Document ---
Author Author [facility] Address [address] 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 Name Role Phone DO Dorie Campos PCP MD Rafael Sandoval Attphys Chief Complaint and Reason for Visit Chief Complaint F/U needs off plavix for bety Reason for Visit Other cervical disc degeneration at C5-C6 level Radiculitis, cervical 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lopathy, cervical region Health Concerns Health concerns may be documented in an alternate section Allergies, Adverse Reactions, Alerts Allergen Type Severity Reaction Last Updated Verified Status nystatin Allergy Severe CAUSES HER TO BREAK OUT April 10, 2021 1:21pm Yes Active Penicillins Allergy Marcie re SWELLING FROM INJECTION SITE FROM INJECTION IN HER 20' S April 10, 2021 1:21pm Yes Active etodolac Allergy Moderate DIARRHEA April 10, 2021 1:21pm Yes Active levofloxacin Allergy Mod erate CAUSED HER FINGERNAILS TO FLAKE OFF April 10, 2021 1:21pm Yes Active valdecoxib Allergy Moder ate GENERALIZED WEAKNESS April 10, 2021 1:21pm Yes Active bacitracin Allergy Unkno wn UNKNOWN April 10, 2021 1:21pm Yes Active clindamycin Allergy Unkn own UNKNOWN April 10, 2021 1:21pm Yes Active doxycycline Allergy Unkn own Rash April 10, 2021 1:21pm Yes Active erythromycin base Allergy Unknown Nausea April 10, 2021 1:21pm Yes Active iodine Allergy Unknown UNKNOWN April 10, 2021 1:21pm Yes Active latex Allergy Unknown UNKNOWN April 10, 2021 1:21pm Yes Active morphine Allergy Unknown UNKNOWN April 10, 2021 1:21pm Yes Active neomycin Allergy Unknown UNKNOWN April 10, 2021 1:21pm Yes Active polymyxin B Allergy Unkn own UNKNOWN April 10, 2021 1:21pm Yes Active Sulfa (Sulfonamide Antibiotics) Allergy Unknown Rash April 10, 2021 1:21pm Yes Active Social History Smoking Status Status Start Date End Da te Date of Observation Never smoked tobacco (finding) April 10, 2021 1:42pm Observation Status Observation Response Abdirahman e of Response second hand exposure No April 10, 2021 1:42pm alcohol intake denies alcohol use April 10, 2021 1:22pm housing house March 222020 1:42pm household members children April 10, 2021 1:42pm service No Dece mber 2020 1:42pm current occupational status retired April 10, 2021 1:42pm current occupational exposures/hazards No April 10, 2021 1:42pm Additional Data Assigned Sex Female Family History Relationship Condition A ge at Onset Recorded Date/Time father Congestive heart failure Unknown mother Aspiration pneumonia Unknown sister Non-Hodgkin's lymphoma Unknown sister Histoplasmosis Un known sister Malignant neoplasm of lung Unknown sister Leukemia Unknown Problems Active Problems Medical Problem Onset Date Status Acute alteration in mental status Active 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 lopathy, cervical region Active GERD with esophagitis Active Radiculitis, cervical Active CAD (coronary artery disease) Active Hyperlipidemia Active Osteoarthritis Active 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 Other cervical disc degeneration at C5-C6 level Active Elevated lactic acid level Active Barretts [...] Event Date Not Given Reason Dose Number Lodge Attendant Lot Number Vaccine Information Statement (VIS) Deta [...] 14, 2018 Procedures Procedure Date Performed Status [place] guidance for facet inj March 222020 1:41pm active Relevant Diagnostic Tests and/or Laboratory Data No known relevant diagnostic tests and/or laboratory data. Vital Signs Vital Reading Result Ref erence Range Collection Date/Time Height 59 [in_i] April 10, 2021 1:22pm Weight 135.00 [lb_av] April 10, 2021 1:22pm Body Temperature 97.3 [degF] 97.5-99.5 April 10, 2021 1:22pm Heart Rate 84 /min 60-90 April 10, 2021 2:08pm Respiratory rate 20 /min 12-20 April 10, 2021 1:22pm BP Systolic 148 mm[Hg] 1 00-160 April 10, 2021 2:08pm BP Diastolic 79 mm[Hg] 5 0-80 April 10, 2021 2:08pm BMI (Body Mass Index) 27.2 kg/m2 April 10, 2021 1:22pm Advance Directives Advance Directive Response Recorded Date/Time Advance Directive on File? No February 11, 2021 1:17pm Insurance Providers Guarantor Tamanna Thomas Address [address] [place] [id number] Contact Info. Home Phone: Payer Policy Id Coverage Id Subscriber's Name Subscriber Id Effective Date Expiration Date Blue Cross Plan 65 Secondary [id number] Tamanna Thomas [id number] Blue Cross Blue Shield [id number] Tamanna Thomas [id number] Medicare [id number] Tamanna Saleem GamezWilliam [id number] Self Pay Self N/A Encounters Encounter Location(s) Ar rival/Admit Date Discharge/Depart Date Provider(s) Departed Clinical [facility] April 10, 2021 1:03pm April 10, 2021 2:27pm Rafael Sandoval Recent Diagnosis Onset Date Other cervical disc degeneration at C5-C6 level Radiculitis, cervical 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 lopathy, cervical region Functional Status No functional status information available Mental Status Observation Response Abdirahman e Recorded Neurological exam IM alert April 10, 2021 1:42pm oriented X3 March 222020 1:42pm Assessments Diagnosis Onset Date Res olution Status Other cervical disc degeneration at C5-C6 level acute Radiculitis, cervical acute 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 lopathy, cervical region acute Plan of Treatment Plan of treatment may be documented in an alternate section Goals Goals may be documented in an alternate section
[2021-04-14 10:35] LABS: BACTERIA,URINE NEGATIVE /HPF; BILIRUBIN,URINE NEGATIVE (NEGATIVE); CLARITY,URINE CLEAR; COLOR,URINE YELLOW; GLUCOSE, URINE (UA) NEGATIVE (NEGATIVE); KETONES,URINE NEGATIVE (NEGATIVE); LEUKOCYTE ESTERASE ,URINE NEGATIVE (NEGATIVE); NITRITE,URINE NEGATIVE (NEGATIVE); PROTEIN,URINE NEGATIVE (NEGATIVE); RBC,URINE 25-50 /HPF; SQUAMOUS EPITHELIAL CELL,UR 0-2 /HPF
--- NOTE | 2021-04-14 10:40 | ED GU-Female ---
General Chief Complaint: - Reproductive Stated Complaint: FREQUENT URINATION Source: patient, family History of Present Illness Date Seen by Provider: Apr 14, 2021 Time Seen by Provider: 10:16 Initial Comments 85-year-old female presenting with her son having complaints of urinary frequency and incontinence. She states that she has been having this going on for over 4 to 5 months. She was here visiting for the holidays and is going back today with another one of her sons. In November she had a urinary tract infection and got dehydrated to the point that she was having seizures. She was in the hospital for an extended period of time. Her son that brings her to the emergency department today was concerned that if she was not checked out before going back home today she might have another episode like that. She had increased urinary incontinence and frequency yesterday. Her son wanted to make sure she was checked for UTI prior to the drive home with his brother. Patient denies any pain with urination, abdominal pain, nausea, vomiting, fever, chills, headache. She has mobility issues and difficulty getting to the bathroom. She states she has multiple allergies but cannot remember what they are and does not have a list with her. Severity/Quality: moderate Prior Genitourinary Problems: similar symptoms Sexual [place] History: not active Associated Symptoms: No abdominal pain, No diaphoresis, No dysuria, No fever/chills; loss of bladder control (Chronic incontinence since at least November); No lower back pain, No lumps, No mass, No nausea/vomiting; nocturia; No swelling, No syncope; urinary frequency Allergies and Home Medications Allergies Coded Allergies: No Allergy Information Available (Unverified , 04/14/21) Patient Home Medication List Home Medication List Reviewed: Yes Review of Systems Review of Systems Constitutional: No chills, No dizziness, No fever, No malaise EENTM: no symptoms reported Respiratory: no symptoms reported Cardiovascular: no symptoms reported Gastrointestinal: no symptoms reported Genitourinary: see HPI; denies burning, denies dysuria; frequency; denies flank pain; incontinence; denies pain; urgency Musculoskeletal: joint pain (Chronic joint pain and mobility issues) Skin: no symptoms reported Psychiatric/Neurological: No Symptoms Reported Past Areyhiu-Qcpwpy-Ptzaxi Hx Patient Social History Tobacco Use?: No Substance use?: No Past Medical History Genitourinary: Yes (Chronic incontinence issues) Bladder Infection, UTI-Chronic Musculoskeletal: Yes Osteoporosis, Arthritis Physical Exam Vital Signs Vital Signs - First Documented 04/14/21 10:50 Temp 37.0 Pulse 113 Resp 20 B/P (MAP) 154/81 (105) Pulse Ox 95 O2 Delivery Room Air Capillary Refill : Height, Weight, BMI Height: '" Weight: lbs. oz. kg; BMI Method: General Appearance: no apparent distress Cardiovascular: normal peripheral pulses, regular rate, rhythm Respiratory: chest non-tender, lungs clear, normal breath sounds Gastrointestinal: normal bowel sounds, non tender, soft, no pulsatile mass Back: no CVA tenderness Extremities: normal range of motion, normal capillary refill Neurologic/Psychiatric: alert, oriented x 3 Skin: normal color, warm/dry Progress/Results/Core Measures Suspected Sepsis SIRS Temperature: Pulse: Respiratory Rate: Blood Pressure / Mean: Results/Orders Lab Results Laboratory Tests Test 04/14/21 10:16 Range/Units Urine Color YELLOW Urine Clarity CLEAR Urine pH 6.0 5-9 Urine Specific [place] 1.025 H 1.016-1.022 Urine Protein NEGATIVE NEGATIVE Urine Glucose (UA) NEGATIVE NEGATIVE Urine Ketones NEGATIVE NEGATIVE Urine Nitrite NEGATIVE NEGATIVE Urine Bilirubin NEGATIVE NEGATIVE Urine Urobilinogen 0.2 < = 1.0 MG/DL Urine Leukocyte Esterase NEGATIVE NEGATIVE Urine RBC (Auto) 3+ H NEGATIVE Urine RBC 25-50 H /HPF Urine WBC NONE /HPF Urine Squamous Epithelial Cells 0-2 /HPF Urine Crystals NONE /LPF Urine Bacteria NEGATIVE /HPF Urine Casts NONE /LPF Urine Mucus SMALL H /LPF Urine Culture Indicated NO My Orders Orders - MICHAEL ACOSTA MD Ua Culture If Indicated (04/14/21 10:16) Vital Signs/I&O 04/14/21 04/14/21 10:50 10:50 Temp 37.0 37.0 Pulse 113 113 Resp 20 20 B/P (MAP) 154/81 (105) 154/81 Pulse Ox 95 O2 Delivery Room Air Room Air Capillary Refill : Progress Note : Progress Note Urinalysis was obtained and showed no signs of infection but had a few red blood cells. Slightly concentrated with specific gravity 1.025. Encouraged pt and son to have her drink more fluids and stay better hydrated. Advised that she needs to follow-up with her primary doctor as well as may need to see her urologist for continued care. Departure Impression Primary Impression: Urinary incontinence in female Additional Impression: Dehydration Disposition: HOME, SELF-CARE Condition: Stable Departure-Patient Inst. Decision time for Depature: 10:38 Referrals: NO,LOCAL PHYSICIAN (PCP/Family) Primary Care Physician Patient Instructions: Dehydration, Adult ED, Urinary Incontinence, Female (DC) Add. Discharge Instructions: Try to drink more water and stay better hydrated. Follow-up with your regular provider about your urinary incontinence and frequency. They may need you to see a urologist or try medication to help control your bladder better. Your urine test today did not show infection but did show it was a little con centrated to go along with needing to drink more fluid. All discharge instructions reviewed with patient and/or family. Voiced understanding. MICHAEL ACOSTA MD Apr 14, 2021 10:40
[2021-04-14 10:50] VITALS: BP 154/81
== END 2021-04-14 10:45 | disposition home or self-care (01) ==
LOC: ER FS 10:15
DX: R32 Unspecified urinary incontinence (principal); E86.0 Dehydration
CPT/HCPCS: 81000; 99282